=== PATIENT | male | born 1955 | race Caucasian/White ===

== ENCOUNTER → 2016-06-28 | Outpatient (CLI) | payer BC ==
[~2016-06-28] MED LIST: ALFU1TAB2 PO; CETI10TA84 PO; DOCU-94 PO; DVN160125 PO; FRRG27 PO; LANS30CA63 PO; METO100T14 PO; MULT-506 PO; RANI150T3 PO; VITAMIN D3 PO; WARF-237 PO; WARF7.5T PO
== END | disposition home or self-care (01) ==
LOC: C.PATHSPEC 13:22
PROVIDERS: ATTEND Dermatology
DX: L57.0 Actinic keratosis (principal)

== ENCOUNTER 2017-08-22 06:21 | Day surgery (SDC) | payer BC ==
[2017-08-05 14:00] VITALS: BMI 44.0
--- NOTE | 2017-08-05 14:31 | PAT Medication Instructions ---
Service Date Aug 05, 2017. Current Home Medication List Alfuzosin Hcl (Alfuzosin Hcl Er), 1 TAB PO QPM Cetirizine (Zyrtec), 10 MG PO QAM Docusate Sodium (Colace), 1 CAP PO BID Ferrous Sulfate (Iron), 1 TAB PO QPM Gabapentin (Neurontin), 300 MG PO UD PRN for PRN Lansoprazole (Prevacid), 30 MG PO QAM Meloxicam (Mobic), 7.5 MG PO QAM Metoprolol Tartrate (Lopressor) (Lopressor), 100 MG PO BID Multivitamin (Multivitamin), 1 TAB PO QAM Ranitidine Hcl (Zantac), 150 MG PO BID Valsartan/Hctz (Diovan Hct 160MG/12.5MG), 1 TAB PO QAM Warfarin Sod (Coumadin), 1 TAB PO TUESDAY Warfarin Sodium (Coumadin), 7.5 MG PO M,W,R,F,SA,SUN [Vitamin D3], 5,000 UNITS PO QAM Medication Instructions For Your Scheduled Surgery -Contact your surgeon for instructions for: Meloxicam (Mobic), 7.5 MG PO QAM -Contact your prescriber for instructions for: Warfarin Sod (Coumadin), 1 TAB PO ANU Warfarin Sodium (Coumadin), 7.5 MG PO M,W,R,F,SA,SUN - Hold the following medications the morning of surgery: Cetirizine (Zyrtec), 10 MG PO QAM Docusate Sodium (Colace), 1 CAP PO BID Multivitamin (Multivitamin), 1 TAB PO QAM Valsartan/Hctz (Diovan Hct 160MG/12.5MG), 1 TAB PO QAM [Vitamin D3], 5,000 UNITS PO QAM - Take the following medications the morning of surgery with a sip of water: Gabapentin (Neurontin), 300 MG PO UD PRN for PRN (if needed) Lansoprazole (Prevacid), 30 MG PO QAM Metoprolol Tartrate (Lopressor) (Lopressor), 100 MG PO BID Ranitidine Hcl (Zantac), 150 MG PO BID - Take the following medications as scheduled the night before surgery: Alfuzosin Hcl (Alfuzosin Hcl Er), 1 TAB PO QPM Docusate Sodium (Colace), 1 CAP PO BID Ferrous Sulfate (Iron), 1 TAB PO QPM Gabapentin (Neurontin), 300 MG PO UD PRN for PRN (if needed) Metoprolol Tartrate (Lopressor) (Lopressor), 100 MG PO BID Ranitidine Hcl (Zantac), 150 MG PO BID If you have any questions please call us at [phone] or [phone] or [phone]
--- NOTE | 2017-08-05 15:07 | DIAGNOSTIC IMAGING REPORT ---
CHEST 2 VIEWS ROUTINE CLINICAL HISTORY: PAT preoperative evaluation COMPARISON STUDY: 12/13/2014 FINDINGS: The bones soft tissues and hemidiaphragms are normal. The cardiomediastinal silhouette is normal. The lungs are clear. The pulmonary vasculature is normal. IMPRESSION: Negative chest. The above report was generated using voice recognition software. It may contain grammatical, syntax or spelling errors. Electronically signed by: Cameron Miranda M.D. 08/05/2017 3:05 PM Dictated Date/Time: 08/05/2017 3:05 PM
[2017-08-05 15:34] LABS: BASO % 0.4 %; BASO ABS # 0.04 K/uL (0-0.2); EOS % 6.5 %; EOS ABS # 0.59 K/uL (0-0.5); HEMATOCRIT 39.8 % (42-52); HEMOGLOBIN 13.5 g/dL (14.0-18.0); IG# 0.01 K/uL (0.00-0.02); LYMPH % 19.2 %; LYMPH ABS # 1.74 K/uL (1.2-3.4); MEAN CELL VOLUME 89.2 fL (80-100); MEAN CORPUSCULAR HEMOGLOBIN 30.3 pg (25-34); MEAN CORPUSCULAR HGB CONC 33.9 g/dl (32-36); MEAN PLATELET VOLUME 9.4 fL (7.4-10.4); MONO % 7.7 %; NEUT % 66.1 %; NEUT ABS # 5.97 K/uL (1.4-6.5); PLATELET COUNT 192 K/uL (130-400); RED CELL DISTRIBUTION WIDTH CV 14.1 % (11.5-14.5); RED CELL DISTRIBUTION WIDTH SD 45.7 fL (36.4-46.3); WHITE BLOOD COUNT 9.05 K/uL (4.8-10.8)
[2017-08-05 15:45] LABS: INR 2.2 (0.9-1.1); PTT PATIENT 42.2 SECONDS (21.0-31.0)
[2017-08-05 16:12] LABS: CALCIUM 9.2 mg/dl (8.5-10.1); CREATININE 1.11 mg/dl (0.60-1.40); POTASSIUM 4.7 mmol/L (3.5-5.1)
--- NOTE | 2017-08-21 21:53 | HISTORY & PHYSICAL EXAMINATION ---
DATE OF ADMISSION: 08/22/2017 CHIEF COMPLAINT: Right shoulder pain. HISTORY OF PRESENT ILLNESS: This is a 61-year-old male patient complaining of chronic right shoulder pain for approximately 6 months now. The patient has failed conservative treatment. An MRI confirmed impingement, AC arthritis and a rotator cuff tear. The patient wish to proceed with a right shoulder arthroscopic subacromial decompression, distal clavicle excision and rotator cuff repair. PAST MEDICAL HISTORY: Atrial fibrillation, sleep apnea with the use of CPAP, osteoarthritis, enlarged prostate. SOCIAL HISTORY: Nonsmoker, nondrinker. PAST SURGICAL HISTORY: Left shoulder, gastric lap band surgery, knee replacement, hip replacement. FAMILY HISTORY: Noncontributory. REVIEW OF SYSTEMS: Chronic right shoulder pain and weakness. Otherwise, denies any shortness of breath, chest pain, nausea, vomiting or any other joint complaints. MEDICATIONS: Include Coumadin as directed daily, multivitamin daily, Diovan daily, Mobic 7.5 mg daily, metoprolol 100 mg b.i.d., Alfuzosin 10 mg daily, Zyrtec 10 mg daily, Zantac 150 mg daily, Prevacid 30 mg daily, Vitamin D3 1000 units daily, iron 325 mg daily. ALLERGIES: No known drug allergies. PHYSICAL EXAMINATION: GENERAL: Well-developed, well-nourished 61-year-old male in no acute distress. He is alert and oriented x3 and pleasant. HEENT: Normocephalic, atraumatic. Extraocular motions are intact. Pupils equal and reactive to light. HEART: Regular rate and rhythm, no murmurs are appreciated. LUNGS: Clear. ABDOMEN: Soft and nontender. Bowel sounds present. EXTREMITIES: Right shoulder reveals full range of motion except for internal rotation. He has positive impingement maneuvering. He has AC joint tenderness, 5/5 strength globally. DIAGNOSES: Right shoulder impingement, acromioclavicular arthritis and rotator cuff tear, atrial fibrillation, sleep apnea with the use of CPAP, osteoarthritis, BPH. PLAN: The patient was advised of his diagnosis. Indications, risks, benefits, postop course have all been reviewed. The patient wishes to proceed with a right shoulder arthroscopic subacromial decompression, distal clavicle excision and rotator cuff repair. Necessary consent forms, preoperative testing and clearances will be obtained.
[~2017-08-22] VITALS: Ht 193 cm; Wt 166.5 kg
[~2017-08-22 06:21] MED LIST changes: +CEFAZOLIN 3000MG IV PUSH 22.5 ML IV SCH; -DVN160125 PO; +FERR1TAB23 PO; -FRRG27 PO; +GABA-113 PO; +LACTATED RINGER'S 1000ML 1,000 ML IV SCH; +MELO7.5T5 PO; +VALS160T58 PO
[2017-08-22] MEDS ORDERED: ROPIVACAINE 0.5% 5 MG/ML 30 ML VIAL ONE (06:24)
[2017-08-22 06:46] VITALS: BP 110/75; PULSE 83; TEMP 36.7; O2SAT 94; Ht 193 cm; Wt 166.5 kg
--- NOTE | 2017-08-22 07:01 | History & Physical Bridge Note ---
H&P Re-Evaluation Bridge Note: I have examined the patient, reviewed the History & Physical and in the interval since the performance of the History & Physical I have noted the following changes of clinical significance: No changes noted
[2017-08-22 07:24] LABS: PTT PATIENT 28.6 SECONDS (21.0-31.0)
[2017-08-22] MEDS ORDERED: ONDANSETRON INJ 2 MG/ML 2 ML VIAL ONE (07:32)
[2017-08-22] MEDS ORDERED: NEOSTIGMINE METHYLSULFATE 5 MG/5 ML SYR ONE (07:32)
[2017-08-22] MEDS ORDERED: MIDAZOLAM HCL 1 MG/ML 2ML VIAL ONE ×2 (07:32→07:39)
[2017-08-22] MEDS ORDERED: DEXAMETHASONE SOD INJ 4 MG/ML VIAL ONE (07:32)
[2017-08-22] MEDS ORDERED: FENTANYL CITRATE INJ 50 MCG/1 ML 2 ML VIAL ONE ×2 (07:32)
[2017-08-22] MEDS ORDERED: GLYCOPYRROLATE INJ 0.2 MG/ML VIAL ONE (07:32)
[2017-08-22] MEDS ORDERED: PROPOFOL IV EMULSION 10 MG/ML 20 ML VIAL IV ONE (07:32)
[2017-08-22] MEDS ORDERED: LIDOCAINE HCL 2% 2 ML VIAL (20MG/ML) ONE (07:32)
[2017-08-22] MEDS ORDERED: EpINEphrine HCL INJ 1 MG/ML 1ML SYRINGE ONE ×2 (07:50→09:58)
[2017-08-22] MEDS ORDERED: LABETALOL HCL IV 5 MG/ML 20ML IV PRN (08:45)
[2017-08-22] MEDS ORDERED: KETOROLAC TROMETHAMINE 30 MG/ML VIAL IV. PRN (08:45)
[2017-08-22] MEDS ORDERED: ONDANSETRON INJ 2 MG/ML 2 ML VIAL IV PRN ×2 (08:45→11:30)
[2017-08-22] MEDS ORDERED: FENTANYL CITRATE INJ 50 MCG/1 ML 2 ML VIAL IV PRN (08:45)
[2017-08-22] MEDS ORDERED: ATROPINE SULFATE 0.1 MG/ML 5ML SYR IV PRN (08:45)
[2017-08-22] MEDS ORDERED: PHENYLEPHRINE HCL INJ 10 MG/ML VIAL ONE (10:52)
--- NOTE | 2017-08-22 11:07 | [facility] Post Operative Brief Note ---
Immediate Operative Summary Operative Date Aug 22, 2017. Pre-Operative Diagnosis rotator cuff tear impingement acj arthritis right shoulder Post-Operative Diagnosis same biceps and rotator cuff tendinopathy glenoid labral tear synovitis subacromial bursitis Procedure(s) Performed right shoulder rotator cuff repair subacromial decompression and distal clavicle excision and extensive debridement and biceps tenotomy Surgeon Maliha Plate Shop Helper Surgeon(s) John Estimated Blood Loss 3cc Findings Consistent with Post-Op Diagnosis Specimens none Drains None Anesthesia Type General Regional Complication(s) none Disposition Disposition: Recovery Room / PACU
[2017-08-22] MEDS ORDERED: OXYC-57 PO (11:26)
[2017-08-22] MEDS ORDERED: KETOROLAC TROMETHAMINE 15 MG/ML VIAL IV. PRN (11:30)
[2017-08-22] MEDS ORDERED: MoRPHine SULFATE 2 MG/ML CARP IV PRN (11:30)
--- NOTE | 2017-08-22 11:32 | Discharge Instructions ---
Discharge Instructions Date of Service Aug 22, 2017. Visit Reason for Visit: Right Shoulder Impingement, Ac Joint Arthritis, Rt Discharge Discharge Diagnosis / Problem: Right Shoulder RTC Tear; Impingement syndrome Discharge Goals Goal(s): Decrease discomfort, Improve function, Increase independence Activity Recommendations Activity Limitations: per Instructions/Follow-up section Anesthesia . Post Anesthesia Instructions: If you have had General Anesthesia or IV Sedation: * Do not drive today. * Resume driving when surgeon permits. * Do not make important decisions or sign legal documents today. * Call surgeon for: 1. Temperature elevations greater than 101 degrees F. 2. Uncontrollable pain. 3. Excessive bleeding. 4. Persistent nausea and vomiting. 5. Medication intolerance (nausea, vomiting or rash). * For nausea and vomiting use only clear liquids such as: tea, soda, bouillon until nausea subsides, then gradually increase diet as tolerated. * If you have any concerns or questions, call your surgeon's office. If physician is unavailable and it is an emergency, call 911 or go to the nearest emergency room. . Instructions / Follow-Up Instructions / Follow-Up U DISCHARGE INSTRUCTIONS: ROTATOR CUFF REPAIR SELF CARE INSTRUCTIONS A. You are permitted to loosen your sling/immobilizer to move your elbow, wrist , and hand to prevent stiffness. You should use your well arm (good arm) to assist the operated extremity when trying to raise the arm away from the body, hygiene purposes. Do NOT actively try to use/engage your shoulder muscles in operative arm at this time. You should NOT do overhead activity, lifting, or attempt to reach behind your back. B. You ARE NOT to start Physical Therapy upon discharge. Dr Jett will let you know when this will begin Please do the exercises noted on the discharge instructions. You will be provided a prescription for therapy with specific restrictions, if needed, at time of discharge. C. At 48 hours post-operatively, you may change your dressing. (Leave white steri-strips intact if present). Use band-aids and change daily. You are allowed to shower at this time and get the incision area wet, but DO NOT soak or submerge incision area in water. (No baths, swimming pools, hot tubs) D. Do NOT apply soap or any ointment/lotions directly over incision. E. You may use ice as needed to operative shoulder SPECIAL CARE INSTRUCTIONS: VERY IMPORTANT TO READ AND REVIEW A. There are a few signs you need to watch for after you are home. Call [facility] at [phone] if you experience any of the following: a. Increased severe shoulder pain. Some pain is expected especially when you exercise b. Increased swelling in your shoulder or arm; pain or swelling in either upper extremity. (Note: swelling and stiffness is normal and expected for several weeks post op, depending on type of shoulder surgery you had). c. Any fluid or drainage from the incision; redness of the incision. d. Shortness of breath or chest pain. B. Please call [facility] at [phone] if you have any questions or concerns about your operation or recovery. C. Call your physician if: a. Temperature is greater than 101 degrees (F). b. Pain is not relieved by prescribed pain medications. c. Increase drainage or redness from incision. d. Unanswered questions or concerns. D. Pain Medication: a. You will be prescribed pain medication upon discharge that should last till your first post-operative appointment. b. If you experience nausea and/or skin rash, discontinue this medication and contact our office for an alternative medication. c. Caution- narcotic pain medication can cause constipation. FOLLOW UP VISIT: Please call [facility] at [phone] to schedule a follow up appointment 10-14 days from your surgery date. Diet Recommendations Recommended Home Diet: resume previous diet Procedures Procedures Performed: right shoulder rotator cuff repair subacromial decompression and distal clavicle excision and extensive debridement and biceps tenotomy Pending Studies Studies pending at discharge: no Medical Emergencies . Who to Call and When: Medical Emergencies: If at any time you feel your situation is an emergency, please call 911 immediately. . Non-Emergent Contact Non-Emergency issues call your: Surgeon Call Non-Emergent contact if: temperature is above 101.5, your pain is not controlled, your pain is worsening, wound has increased drainage, wound has increased redness . . "Provider Documentation" section prepared by Cayetano Lopez. . [place] Drug Monitoring Program Search Results: patient reviewed within database, no issues identified
[2017-08-22 12:20] VITALS: BP 146/83; PULSE 72; TEMP 36.2; O2SAT 94
[2017-08-22 12:50] VITALS: BP 135/82; PULSE 76; O2SAT 93
[2017-08-22 13:25] VITALS: BP 112/67; PULSE 78; TEMP 36.1; O2SAT 94
[2017-08-22 13:47] VITALS: BP 123/67; PULSE 71; TEMP 36.8; O2SAT 93
--- NOTE | 2017-08-22 14:03 | Anesthesiology Progress Note ---
Anesthesia Post Op Note Date & Time Aug 22, 2017 at 14:03 Vital Signs Pain Intensity: 0 Vital Signs Past 12 Hours Date Time Temp Pulse Resp B/P (MAP) Pulse Ox O2 Delivery O2 Flow Rate FiO2 08/22/17 13:25 36.1 78 18 112/67 94 Room Air 08/22/17 12:50 76 18 135/82 93 Room Air 08/22/17 12:20 36.2 72 18 146/83 94 Room Air 08/22/17 12:10 36.2 60 18 137/91 95 Nasal Cannula 2 08/22/17 12:00 36.2 62 18 125/87 94 Nasal Cannula 2 08/22/17 11:50 65 18 125/87 93 Nasal Cannula 2 08/22/17 11:40 74 16 138/94 98 Oxymask 10 08/22/17 11:30 65 16 140/85 97 Oxymask 10 08/22/17 11:20 36.3 61 20 138/83 95 Oxymask 10 08/22/17 06:46 36.7 83 20 110/75 (87) 94 Room Air Notes Mental Status: alert / awake / arousable, participated in evaluation Pt Amnestic to Procedure: Yes Nausea / Vomiting: adequately controlled Pain: adequately controlled Airway Patency, RR, SpO2: stable & adequate BP & HR: stable & adequate Hydration State: stable & adequate Anesthetic Complications: no major complications apparent
--- NOTE | 2017-08-22 19:20 | OPERATIVE REPORT ---
DATE OF OPERATION: 08/22/2017 INDICATION FOR PROCEDURE: The patient is a 61-year-old male who presents with right shoulder pain, impingement syndrome and rotator cuff tear. He has had good successful rotator cuff surgery in his opposite shoulder. On this shoulder, he has significant hypertrophic AC joint arthritis, type 3 acromion and subacromial impingement. He also has full-thickness rotator cuff tear anteriorly and rotator cuff tendinopathy. I could not assess the biceps but he may have biceps tendinopathy. The patient also has obesity, BMI 44.7. PREOPERATIVE DIAGNOSES: Right shoulder rotator cuff tear, subacromial impingement, hypertrophic acromioclavicular joint arthritis and morbid obesity, body mass index 44.7. POSTOPERATIVE DIAGNOSES: Same including biceps tendinopathy, rotator cuff tendinopathy, glenohumeral synovitis, glenohumeral osteoarthritis and degenerative glenoid labral tear. PROCEDURES PERFORMED: Arthroscopy of the right shoulder with arthroscopic rotator cuff repair, subacromial decompression, distal clavicle excision, extensive debridement including biceps tenotomy and increased difficulty due to morbid obesity, BMI 44.7. SURGEON: Dr. Jett. LOCATOR SPECIALIST: ANNY Houston. ANESTHESIA: Regional block and general. OPERATIVE PROCEDURE: The patient was taken to the operating room and anesthetized under regional block and general anesthetic. He was positioned on [facility] shoulder table in about 70-degree beachchair position. His right shoulder exam demonstrated good range of motion. He has a very obese large arm. He is a very obese individual, so it took a little bit more time and difficulty to get in position due to his obesity. After shoulder was sterilely prepped and draped with ChloraPrep, arthroscopy was started with a posterior arthroscopy portal in the soft spot. Anterior portal rotator interval, lateral portal in the subacromial space and superior lateral portal for suture anchor placement. Intraarticular findings demonstrated he had significant degeneration of the entire labrum, more of a degenerative SLAP tear type 1, extending from anterior to posterior up into the biceps tendon with marked biceps tendinopathy, extending deep into the bicipital groove. He had sort of a band-like thinning of biceps tendon. Subscapularis tendon was intact and looked normal. Supraspinatus had tendinopathy fraying in the undersurface and a full-thickness cuff tear. This extended back toward the anterior edge of the infraspinatus. The inferior labrum also was frayed anterior inferiorly to posterior inferiorly and the glenoid articular surface had grade 3 degenerative changes. The humeral head good articular surface. In the subacromial space, the tear was noted to be an L-shaped tear. Supraspinatus completely torn off the greater tuberosity with split extending between the infraspinatus and supraspinatus and marked tendinopathy of the superior edge of supraspinatus and infraspinatus bursal surface. There was marked impingement with type 3 acromion process, fraying CA ligament, prominent inferior AC joint spurs causing impingement and grade 4 DJD AC joint. There was chronic subacromial bursitis. Starting at the glenohumeral joint, did a thorough debridement of the labrum circumferentially, debrided the undersurface of the biceps tendon, debrided the undersurface of the rotator cuff, did some partial synovectomy, coagulated the bleeders as necessary and released the biceps tendon, performing a tenotomy using a radiofrequency ablator. We did debride the articular surface of the glenoid along with the labrum circumferentially. The subacromial space debridement performed using a 4.5 resector blade and a radiofrequency ablator to ablate the bursa. The bursal surface of the cuff was debrided between the infraspinatus and the supraspinatus in the split area on the bursal surface where it was frayed. Footprint of the supraspinatus was debrided from the articular margin out to the lateral greater tuberosity. The footprint was debrided down to bone for reattachment. The subacromial bursa was resected from anterior to posterior, fully visualizing the whole cuff tear pattern, removing all pathological bursa. The radiofrequency ablator was used to ablate the bursa on the undersurface of the acromion, released the CA ligament off the anterior acromial spur, released the inferior AC joint capsule, exposed 1 cm distal clavicle and all the inferior spurs. A 5.5 bur was used to plane down the acromion to a type 1 flat shape and initially the undersurface of distal clavicle was resected, 1 cm was resected up to the level of the acromioplasty with the bur through the lateral portal. Then, the rotator cuff was repaired using a [employer] suture anchor 5.5 mm in the lateral footprint of the supraspinatus. We had satisfactory fixation with the anchor. Then placed 2 [id number] sutures using #2 Ultrabraid into the supraspinatus anteriorly and infraspinatus posteriorly. These were left untied and the sutures from the triple loaded anchor were passed underneath the sutures acting as a rip-stop technique and into the supraspinatus. Then, the sutures to the anchor were repaired with an arthroscopic Mills sliding locking knot 3 reverse half hitches alternating posts. Then, [id number] sutures were closed with similar knots. Repair was secured with the arm at the side, and with rotation, there was no impingement. Then, a 70-degree scope was placed in the lateral portal and the anterior portal a 5.5 bur was placed and then we removed the remainder of the distal clavicle up to the superior capsule, and superior and posterior capsule was preserved for stability. The port sites were closed with nylon sutures, sterile dressing was applied and a pillow sling immobilizer. ANNY Houston, was my machinist first class and he functioned as machinist first class for the entire procedure. He assisted in patient positioning, prepping and draping, arm positioning, instrument management, suture management during the procedure, and he performed the closure, dressings, sling application, and will participate in some of the postoperative care of the patient. I attest to the content of the Intraoperative Record and any orders documented therein. Any exception s are noted below.
== END 2017-08-22 14:20 | disposition home or self-care (01) ==
LOC: C.ACU 06:21
PROVIDERS: ATTEND Orthopaedic Surgery Sports Medicine
DX: M75.101 Unspecified rotator cuff tear or rupture of right shoulder, not specified as traumatic (principal); M75.41 Impingement syndrome of right shoulder; M75.21 Bicipital tendinitis, right shoulder; M19.011 Primary osteoarthritis, right shoulder; M65.811 Other synovitis and tenosynovitis, right shoulder; M24.111 Other articular cartilage disorders, right shoulder; I48.91 Unspecified atrial fibrillation; G47.30 Sleep apnea, unspecified; Z98.84 Bariatric surgery status; Z96.659 Presence of unspecified artificial knee joint; Z96.649 Presence of unspecified artificial hip joint; Z79.01 Long term (current) use of anticoagulants; Z79.899 Other long term (current) drug therapy; E66.01 Morbid (severe) obesity due to excess calories; Z68.41 Body mass index [BMI] 40.0-44.9, adult

== ENCOUNTER 2019-04-23 08:01 | Inpatient (IN) ==
--- NOTE | 2019-03-22 16:39 | PAT Medication Instructions ---
Medication Instructions Date of Service March 22, 2019 Home Medications Medication Instructions Recorded albuterol sulfate HFA 90 2 puffs INHALATION Q4H PRN #18 gm 01/17/19 mcg/actuation aerosol inhaler gabapentin 300 mg capsule 300 mg PO QPM #90 cap 01/17/19 magnesium oxide 400 mg (241.3 mg 400 mg PO BID #180 tab 01/17/19 magnesium) tablet meclizine 25 mg tablet 25 mg PO TID PRN #60 tab 01/17/19 metoprolol tartrate 100 mg tablet 100 mg PO BID #180 tab 01/17/19 tadalafil 10 mg tablet 18.5 mg PO DAILY PRN #90 tab 01/17/19 albuterol sulfate HFA 90 mcg/actuation aerosol inhaler 2 puffs INHALATION Q4H PRN gabapentin 300 mg capsule 300 mg PO QPM magnesium oxide 400 mg (241.3 mg magnesium) tablet 400 mg PO BID meclizine 25 mg tablet 25 mg PO TID PRN metoprolol tartrate 100 mg tablet 100 mg PO BID tadalafil 10 mg tablet 18.5 mg PO DAILY PRN alfuzosin 10 mg PO HS cetirizine 10 mg PO QAM cholecalciferol (vitamin D3) 1,000 units PO QAM lansoprazole 30 mg PO QAM meloxicam 7.5 mg PO QAM multivitamin [Multiple Vitamins] 1 tab PO QAM valsartan-hydrochlorothiazide 1 tab PO QAM warfarin 7.5 mg PO .SUN,M.W,TH,SAT warfarin 10 mg PO .TUE, FRI ASK your surgeon for instructions meloxicam 7.5 mg PO QAM ASK your prescriber and surgeon warfarin 7.5 mg PO .SUN,M.W,TH,SAT warfarin 10 mg PO .TUE, FRI DO NOT take the morning of surgery magnesium oxide 400 mg (241.3 mg magnesium) tablet 400 mg PO BID tadalafil 10 mg tablet 18.5 mg PO DAILY PRN cetirizine 10 mg PO QAM cholecalciferol (vitamin D3) 1,000 units PO QAM multivitamin [Multiple Vitamins] 1 tab PO QAM valsartan-hydrochlorothiazide 1 tab PO QAM Take morning of surgery With a small sip of water, OTHERWISE NOTHING TO EAT OR DRINK AFTER MIDNIGHT: albuterol sulfate HFA 90 mcg/actuation aerosol inhaler 2 puffs INHALATION Q4H PRN (if needed) meclizine 25 mg tablet 25 mg PO TID PRN (if needed) metoprolol tartrate 100 mg tablet 100 mg PO BID lansoprazole 30 mg PO QAM Take evening before surgery albuterol sulfate HFA 90 mcg/actuation aerosol inhaler 2 puffs INHALATION Q4H PRN (if needed) gabapentin 300 mg capsule 300 mg PO QPM magnesium oxide 400 mg (241.3 mg magnesium) tablet 400 mg PO BID meclizine 25 mg tablet 25 mg PO TID PRN (if needed) metoprolol tartrate 100 mg tablet 100 mg PO BID tadalafil 10 mg tablet 18.5 mg PO DAILY PRN (if needed) alfuzosin 10 mg PO HS Other Notes If you have any questions please call us at [phone] or [phone] or [phone] or [phone]
--- NOTE | 2019-03-23 12:08 | Anesthesiology Consultation ---
Date of Service March 23, 2019 Assessment & Plan (1) Encounter for pre-operative examination: - Awaiting review preop testing (labs, EKG, CXR). - Awaiting cardiology preop evaluation scheduled 03/26 ([facility]). - Check coags AM DOS (warfarin instructions per surgeon/prescriber). Chart Review Chart Review: Patient seen in Pre Admission Testing Teaching & Discussion Pre-Anesthesia Teaching/Discussion Notes: Instructed NPO after midnight before surgery,except medications with 15 cc of water. Medication instructions provided according to the PAT guidelines. History Surgery Operation Date: 04/23/19 11:25 Proposed Procedures p Left Total Knee Arthroplasty - Paco Jett MD Height/Weight Height: 6 ft 3 in Weight: 156.8 kg Allergies Allergy/AdvReac Type Severity Reaction Status Date / Time hydrochlorothiazide Allergy Mild Hypotension Verified 03/20/19 12:22 [From Aldoril D30] methyldopa [From Aldoril D30] Allergy Mild Hypotension Verified 03/20/19 12:22 Medications Home Medications Medication Instructions Recorded Confirmed Last Taken albuterol sulfate HFA 90 2 puffs INHALATION Q4H PRN #18 gm 01/17/19 03/20/19 Unknown mcg/actuation aerosol inhaler gabapentin 300 mg capsule 300 mg PO QPM #90 cap 01/17/19 03/20/19 Unknown magnesium oxide 400 mg (241.3 mg 400 mg PO BID #180 tab 01/17/19 03/20/19 Unknown magnesium) tablet meclizine 25 mg tablet 25 mg PO TID PRN #60 tab 01/17/19 03/20/19 Unknown metoprolol tartrate 100 mg tablet 100 mg PO BID #180 tab 01/17/19 03/20/19 Unknown tadalafil 10 mg tablet 18.5 mg PO DAILY PRN #90 tab 01/17/19 03/20/19 Unknown alfuzosin 10 mg PO HS 03/20/19 03/20/19 Unknown cetirizine 10 mg PO QAM 03/20/19 03/20/19 Unknown cholecalciferol (vitamin D3) 1,000 units PO QAM 03/20/19 03/20/19 Unknown lansoprazole 30 mg PO QAM 03/20/19 03/20/19 Unknown meloxicam 7.5 mg PO QAM 03/20/19 03/20/19 Unknown multivitamin [Multiple Vitamins] 1 tab PO QAM 03/20/19 03/20/19 Unknown valsartan-hydrochlorothiazide 1 tab PO QAM 03/20/19 03/20/19 Unknown warfarin 7.5 mg PO .Marcie CHAVEZ,TH,SAT 03/20/19 03/20/19 Unknown warfarin 10 mg PO .TUE, FRI 03/20/19 03/20/19 Unknown Past Medical History Medical History Polyneuropathy Osteoarthritis CIRA on CPAP Hypertension Esophageal reflux controlled Dyslipidemia Woodard's esophagus Atrial fibrillation, permanent BPH (benign prostatic hyperplasia) Morbid obesity Exercise / Class Metabolic Activity III < 4 Walking/Shop/Light housework Past Family History Family History Unknown Patient's father is Diabetes Uterine cancer Father Heart disease Lung disease Mother Hypertension Past Surgical History Surgical History S/P rotator cuff repair RIGHT/LEFT; Right shoudler arthroscopy with RCR: 08/22/17: Grade view 1, MAC #4, ETT 8.0 + PNB at [facility] S/P knee replacement RIGHT S/P colonoscopy History of esophagogastroduodenoscopy (EGD) History of left hip replacement Hx of laparoscopic gastric banding Past Anesthesia History No Family Hx of Anesthesia Complications and Other *Awareness with right TKA* History of PONV No Hx of PONV and No Hx of Motion Sickness Social History Smoking Status: Never smoker Do You Dip or Chew Tobacco: No Hx Alcohol Use: No Hx Substance Use: No substance use type: does not use Review of Systems Patient denies chest pain, shortness of breath, cough, wheezing, palpitations. Physical Exam Vital Signs VITALS BP 108/76 P 71 TEMP 98.4 SP02 93%RA RESP 16 PHYSICAL Full neck and c-spine range of motion. Full TMJ range of motion. TMD 3 finger breaths Mallampati Score 2 Dentition: partial on upper, plan for tooth extraction prior to surgery (surgeon aware)-- will then have no teeth on lower Lungs: clear throughout to auscultation Cardiac: regular rate, irregular rhythm, no murmurs noted Spine: normal Carotid arteries: negative bruit Extremities: no edema Trimmed steen Testing Echocardiogram Date: 03/23/18 "Severely dilated left ventricle (7.7 cm) with normal systolic function and wall motion technically difficult study. EF 55-60%. Severely dilated left atrium. Dilated right sided chambers as well. No significant valvular abnormalities reported" per 02/12/19 cardiology office visit (unable to obtain official report*)
--- NOTE | 2019-03-23 12:56 | XRay Report ---
XR chest Pre-admission PA/Lat CLINICAL HISTORY: Preoperative evaluation. COMPARISON STUDY: Chest radiograph August 05, 2017. FINDINGS: Lung volumes are normal. There is no pneumothorax or pleural effusion. There is mild to mod erate cardiomegaly. No evidence for pulmonary edema. There is a probable gastric lap band. IMPRESSION: 1. No acute cardiopulmonary findings. 2. Mild to moderate cardiomegaly. Electronically signed by: Patel Alvarado M.D. 03/23/2019 12:55 PM
[2019-03-23 13:45] LABS: Basophils # (auto) 0.02 K/uL (0-0.2); Basophils % (auto) 0.2 %; Eosinophils % (auto) 4.7 %; Hematocrit (blood only) 39.5 % (42-52); Hemoglobin 12.9 g/dL (14.0-18.0); Immature Granulocytes # (auto) 0.02 K/uL (0.00-0.02); Immature Granulocytes % (auto) 0.2 %; Lymphocytes # (auto) 1.23 K/uL (1.2-3.4); Lymphocytes % (auto) 14.4 %; Mean Corpuscular Hemoglobin 30.1 pg (25-34); Mean Corpuscular Hgb Conc 32.7 g/dL (32-36); Mean Corpuscular Volume 92.1 fL (80-100); Monocytes % (auto) 8.2 %; Neutrophils % (auto) 72.3 %; Platelet Count 188 K/uL (130-400); RDW Standard Deviation 47.2 fL (36.4-46.3); Red Blood Count 4.29 M/uL (4.7-6.1); White Blood Count 8.57 K/uL (4.8-10.8)
[2019-03-23 14:00] LABS: INR 2.1 (0.9-1.1); Partial Thromboplastin Ratio 1.3; Partial Thromboplastin Time 34.7 Seconds (21.0-31.0); Prothrombin Time 20.4 Seconds (9.0-12.0)
[2019-03-23 14:23] LABS: Albumin Level 3.8 gm/dl (3.4-5.0); BUN Creatinine Ratio 21.9 (10-20); Calcium 9.2 mg/dl (8.5-10.1); Est GFR (African American) 78.3; Est GFR (Non-African American) 67.6; Estimated Average Glucose 120 mg/dl; Hemoglobin A1C 5.8 % (4.5-5.6); Potassium 4.5 mmol/L (3.5-5.1)
[2019-03-23 14:38] LABS: Appearance Urine Clear (Clear); Bilirubin Urine Negative (Negative); Blood Urine Negative (Negative); Color Urine Yellow; Glucose Urine UA Negative (Negative); Ketones Urine Negative (Negative); Leukocyte Esterase Urine Negative (Negative); Nitrite Urine Negative (Negative); Protein Urine Negative (Negative); Urobilinogen Urine Negative (Negative)
--- NOTE | 2019-04-22 21:41 | History and Physical Report ---
DATE OF ADMISSION: 04/23/2019 CHIEF COMPLAINT: Left knee pain. HISTORY OF PRESENT ILLNESS: This is a 63-year-old male patient of Dr. Díaz complaining of chronic left knee pain and instability, longstanding, now progressively getting worse. The patient has failed conservative treatment including narcotic medications, home exercise program and the use of a brace. The patient has been diagnosed with end-stage osteoarthritis per clinical and radiographic exams. The patient has increased pain with weightbearing activities and his pain does interfere with his activities of daily living. The patient wished to proceed with a left total knee arthroplasty. PAST MEDICAL HISTORY: Hypertension, atrial fibrillation, sleep apnea with the use of CPAP, osteoarthritis, obesity. SOCIAL HISTORY: Nonsmoker, nondrinker. PAST SURGICAL HISTORY: Right shoulder, left shoulder, right knee, left hip and a lap band abdominal surgery. FAMILY HISTORY: Noncontributory. REVIEW OF SYSTEMS: Chronic left knee pain and instability. Otherwise, denies any shortness of breath, chest pain, nausea, vomiting or any other joint complaints. MEDICATIONS: Coumadin daily, multivitamin daily, Diovan daily, Mobic 7.5 mg daily, metoprolol 100 mg twice daily, alfuzosin 10 mg daily, Zyrtec 10 mg daily, Zantac 150 mg daily, Prevacid 30 mg daily, Vitamin D3 1000 units daily, iron 325 mg daily. ALLERGIES: No known drug allergies. PHYSICAL EXAMINATION: GENERAL: Well-developed, well-nourished 63-year-old male in no acute distress. He is alert and oriented x3 and pleasant. HEENT: Normocephalic, atraumatic. Extraocular motions are intact. Pupils are equal and reactive to light. HEART: Regular rate and rhythm and stable. LUNGS: Clear. ABDOMEN: Soft, nontender, bowel sounds present. EXTREMITIES: Left knee limited range of motion of 0-115 with a valgus deformity. The patient has lateral joint line tenderness with crepitation. He has 5/5 strength with pain. NEUROLOGIC: Neurovascularly, he is intact in his left lower extremity. DIAGNOSES: Left knee end-stage osteoarthritis, atrial fibrillation, sleep apnea with the use of CPAP, osteoarthritis and obesity. PLAN: The patient was advised of his diagnosis. Indications, risks, benefits, postop course have all been reviewed. The patient wishes to proceed with a left total knee arthroplasty. Necessary consent forms, preoperative testing and clearances will be obtained.
[~2019-04-23 08:01] MED LIST changes: +ACETAMINOPHEN 500 MG TAB PO SCH; -ALFU1TAB2 PO; +BUPIVACAINE 0.5 % 5 MG/1 ML PF 10ML VIAL ONE; +CEFAZOLIN 3000MG 72.5 ML IV SCH; -CEFAZOLIN 3000MG IV PUSH 22.5 ML IV SCH; -CETI10TA84 PO; +CeleBREX 200 MG CAP PO SCH; -DOCU-94 PO; +FAMOTIDINE 20 MG TAB PO SCH; -FERR1TAB23 PO; -GABA-113 PO; +GABAPENTIN 600 MG DOSE PO SCH; -LACTATED RINGER'S 1000ML 1,000 ML IV SCH; -LANS30CA63 PO; +LR 500ML BOLUS IV SCH; +LR 500ML BOLUS, THEN 15ML/HR IV SCH; -MELO7.5T5 PO; -METO100T14 PO; +METOCLOPRAMIDE HCL 10 MG TABLET PO SCH; -MULT-506 PO; -RANI150T3 PO; +ROPIVACAINE 0.5% HCL/PF 150 MG, BUPIVACAINE 0.5% MPF 30 ML, EPINEPHrine 30MG/30ML (OR U... INFIL SCH; -VALS160T58 PO; -VITAMIN D3 PO; -WARF-237 PO; -WARF7.5T PO; +dexAMETHasone 4 MG TAB PO SCH
[2019-04-23] MEDS ORDERED: MIDAZOLAM HCL 1 MG/ML 2ML VIAL ONE (08:25)
[2019-04-23] MEDS ORDERED: fentaNYL citrate 100 MCG/2 ML VIAL ONE (08:25)
[2019-04-23 08:43] LABS: INR 1.1 (0.9-1.1); Partial Thromboplastin Time 27.2 Seconds (21.0-31.0); Prothrombin Time 11.1 Seconds (9.0-12.0)
--- NOTE | 2019-04-23 08:51 | History & Physical Bridge Note ---
Date of Service April 23, 2019 History & Physical Bridge Note I have examined the patient, reviewed the History & Physical and in the interval since the performance of the History & Physical I have noted the following changes of clinical significance: no changes noted
[2019-04-23] MEDS ORDERED: ORTHO JOINT ANESTHETIC ONE (09:25)
[2019-04-23] MEDS ORDERED: BACITRACIN INJ 50,000 UNIT VIAL ONE (09:25)
[2019-04-23] MEDS ORDERED: ePHEDrine sulfate 50 MG/ML AMP IV PRN (09:44)
[2019-04-23] MEDS ORDERED: ONDANSETRON INJ 2 MG/ML 2 ML VIAL IV PRN ×2 (09:44→13:54)
[2019-04-23] MEDS ORDERED: ATROPINE SULFATE 0.1 MG/ML 10ML SYR IV PRN (09:44)
[2019-04-23] MEDS ORDERED: fentaNYL citrate 100 MCG/2 ML VIAL IV PRN (09:44)
[2019-04-23] MEDS ORDERED: PHENYLEPHRINE 100MCG/ML 5ML SYR ONE (10:47)
[2019-04-23] MEDS ORDERED: LIDOCAINE HCL 2% 2 ML VIAL/AMP(20MG/ML) INFIL ONE (10:47)
[2019-04-23] MEDS ORDERED: PROPOFOL IV EMULSION 10 MG/ML 20 ML VIAL IV ONE ×3 (10:47→12:21)
[2019-04-23] MEDS ORDERED: ONDANSETRON INJ 2 MG/ML 2 ML VIAL ONE (10:47)
[2019-04-23] MEDS ORDERED: KETAMINE HCL INJ 50 MG/ML 10 ML VIAL ONE (10:53)
--- NOTE | 2019-04-23 12:21 | Post Operative Brief Note ---
Immediate Post Op Note v1 Date of Surgery April 23, 2019 Pre & Post Diagnosis Operation Date: 04/23/19 10:40 Pre-Op Diagnosis: LEFT KNEE OSTEOARTHRITIS, obesity BMI 43 Post-Op Diagnosis: LEFT KNEE OSTEOARTHRITIS, obesity BMI 43 I identified the patient and participated in the time-out.: Yes Procedure Operation Date: 04/23/19 10:40 Actual Procedures p Left Total Knee Arthroplasty(Left) increased difficulty obesity BMI 43- Paco Jett MD Surgeon Paco Jett MD Inspector Bicycle Cameron MCCORMICK Estimated Blood Loss 5 Findings Consistent with Post-Op Diagnosis Specimens Bone cuts Drains Hemovac Drain (10 FR DUAL TROCAR) Anesthesia Type MAC Spinal Regional Complications none Disposition Accompanied Patient To Recovery: No Disposition: Recovery Room Overlapping Procedure I was present for: the critical portions of procedure.
--- NOTE | 2019-04-23 13:38 | Anesthesiology Progress Note ---
Date of Service April 23, 2019 Anesthesia Post Procedure Vital Signs Vital Signs: Temp Pulse Pulse Resp BP Pulse Ox 04/23/19 13:25 98.2 F 59 L 14 107/78 97 04/23/19 13:15 70 14 110/68 94 04/23/19 13:05 59 L 14 102/75 99 04/23/19 12:58 97.2 F L 73 14 96/65 L 98 04/23/19 08:41 97.5 F L 79 20 118/84 96 Pain Intensity Left Knee: Pain Intensity: 6 Transfer of Care Handoff Completed per policy Notes Mental Status: alert / awake / arousable and participated in evaluation Patient Amnestic to Procedure: Yes Nausea / Vomiting: adequately controlled Pain: adequately controlled Airway Patency, RR, SpO2: stable & adequate BP & HR: stable & adequate Hydration State: stable & adequate Neuraxial Anesthesia: was administered and sensory block is resolving Anesthetic Complications: no major complications apparent and Pt Satisfied with anesthetic care
--- NOTE | 2019-04-23 13:38 | XRay Report ---
LEFT KNEE 2 VIEWS History: Left total knee arthroplasty. Degenerative arthritis. Postop. FINDINGS: The patient is status post a left total knee arthroplasty. The hardware is intact. No fract ure or dislocation. Skin tiffany and surgical drains are in place. IMPRESSION: Left total knee arthroplasty. No evidence for hardware complication. Electronically signed by: Les Renteria M.D. 04/23/2019 1:37 PM
[2019-04-23] MEDS ORDERED: HYDROmorphone INJ 0.5 MG/0.5 ML SYR IV PRN (13:54)
[2019-04-23] MEDS ORDERED: MAGNESIUM HYDROXIDE SUSP 30 ML UDC PO PRN (13:54)
[2019-04-23] MEDS ORDERED: BISACODYL 10 MG SUPP PR PRN (13:54)
[2019-04-23] MEDS ORDERED: NALOXONE HCL 0.4 MG/1 ML VIAL/CARP IV PRN (13:54)
--- NOTE | 2019-04-23 14:01 | Operative Report ---
Post Operative Report Pre & Post Diagnosis Operation Date: 04/23/19 10:40 Pre-Op Diagnosis: LEFT KNEE OSTEOARTHRITIS obesity BMI 43 Post-Op Diagnosis: LEFT KNEE OSTEOARTHRITIS obesity BMI 43 I identified the patient and participated in the time-out.: Yes Procedure Operation Date: 04/23/19 10:40 Actual Procedures p Left Total Knee Arthroplasty(Left), increased difficulty obesity BMI 43- Paco Jett MD Surgeon Paco Jett MD Bull Wheel Worker Cameron MCCORMICK Estimated Blood Loss 5 Findings Consistent with Post-Op Diagnosis Specimens Bone cuts Drains 2 Hemovac Anesthesia Type MAC Spinal Regional Complications none Disposition Accompanied Patient To Recovery: No Disposition: Recovery Room Indications 63-year-old male history of obesity chronic progressive osteoarthritis in his left knee with a valgus knee about 15 to 18 degrees of valgus some MCL laxity [id number] lateral compartment. History of ipsilateral hip replacement on left side and contralateral knee replacement. Description of Procedure Patient taken to the operating room the size under spinal MAC regional anesthesia. Patient was placed supine on the operating table. A pneumatic tourniquet was placed about the obese left upper thigh. The left lower extremity was prepped and draped in sterile fashion. Knee exam demonstrated tight lateral compartment valgus knee 15 to 18 degrees flexion contracture 10 degrees good flexion to 130 degrees. The leg was elevated exsanguinated with an Esmarch bandage and pneumatic tourniquet was raised to 350 millimeters of mercury. Skin incised sharply in longitudinal fashion. Subcutaneous flaps elevated. Incision was made through the medial retinaculum extending up in the mid third of the quadriceps tendon and down to the medial tibial tubercle. Intra-articular findings demonstrated grade 4 patellofemoral trochlear OA with grade 4 lateral compartment [id number] chronic degenerative ACL tear chronic lateral meniscus tear with subluxation. Some tricompartmental DJD. The Viamedia triathlon total knee arthroplasty system was used. To expose the knee the infrapatellar fat pad was resected. The meniscal remnants and posterior cruciate ligament and remnants of anterior cruciate ligament were resected. The anterior fat pad over the femur in the area of the anterior flange of the femoral component was resected. Lateral synovial bands release. The femur was exposed. An intramedullary drill hole was made into the canal. A guide elma was placed. Distal femoral cutting guide was adjusted to resect a 6 degree valgus cut with 10 millimeters distal femur resected. The knee was extended and a subperiosteal peel lateral release was performed around the patella. Patella width was measured and width was reproduced using a freehand cut technique and a 39 x 11 symmetrical patella component. The 3 drill holes were made and the excess lateral facet was beveled off to prevent any impingement. Attention was taken back to the femur which was exposed with retractors and the femoral sizing guide was pinned in position. The drill holes were placed in 3 of external rotation to match epicondylar axis. Femur sized for a 8 component. I had to use the +1.5 guide to adjust anterior resection so we would not notch the femur. The 4-in-1 cutting block was placed and then the anterior posterior and chamfer cuts are made. The tibia was then subluxed. The external tibial cutting guide was just to make a perpendicular cut to the long axis of the tibia below the most deficient bone loss side. A lamina electric trucker was used and the flexion extension gaps were balanced. This required IT band release off tibia lateral capsular and posterior lateral capsule release popliteus tendon release and lateral recession of the lateral collateral ligament. All posterior osteophytes removed. All meniscal remnants were resected. The tibia exposed and the trial tibial component size 8 was externally rotated in line with the tibial tubercle and pinned in position. The punch for stem was used. The notch cutting device was centered appropriately and the femoral notch cut was made. The femoral trial was inserted. Trial tibial inserts were placed and size 13 gave balanced ligaments through flexion and extension. Patella tracking was assessed. The patella tracked laterally so a formal lateral release was performed and the patella tracked centrally. The trial components were then removed and the orthomix anesthetic cocktail was injected per protocol. The knee was then copiously irrigated with pulsatile lavage antibiotic solution. Final components were then cemented with Simplex cement. Final components were a left posterior stabilized triathlon [place] total knee replacement with 8 primary tibial baseplate with extra 3 polyethylene size 8 x 13 posterior stabilized tibial insert and X3 polyethylene S 39 x 11 patella. While the cement cured the Betadine soak was used per protocol. After cement cured further pulsatile lavage irrigation performed and 2 Hemovac drains were brought out laterally. The quadriceps tendon and medial retinaculum were closed with figure of 8 #1 Vicryl sutures. The knee was taken through full range of motion and the repair was secure. The subcutaneous tissues were closed with 2-0 Vicryl sutures. Skin was closed with tiffany. Sterile dressings were applied. Patient procedure well. Cameron MCCORMICK was my physician senior office support assistant sosa who assisted in patient positioning prepping and draping,leg positioning ,soft tissue retraction and instrument management and participated in the closing and will participate in postoperative care of the patient. Was increase of difficulty due to his size and obesity and surgical time increased by 15 to 20 minutes. The patient tolerated the procedure well. I attest to the content of the Intraoperative Record and any orders documented therein. Any exceptions are noted below.
[2019-04-23] MEDS: SODIUM CHLORIDE 0.9% 1000ML 1,000 ML IV SCH ×2 (15:38→23:12)
--- NOTE | 2019-04-23 15:46 | Hospitalist Consultation ---
Date of Consultation April 23, 2019 Assessment & Plan (1) S/P knee replacement: OR on 04/[address] Jett As per ortho Pre-op Hb 12.9 (2) Polyneuropathy: Gabapentin as at home (3) CIRA on CPAP: Home CPAP (4) Hypertension: continue home meds (5) Esophageal reflux: continue home meds (6) Woodard's esophagus: continue home meds (7) Atrial fibrillation, permanent: Coumadin 10mg / and 7.5mg other days Resume as per ortho (8) Dyslipidemia: States no current medication for this (9) Diabetes mellitus, controlled: No current meds for this A1c 5.8 (10) DVT prophylaxis: As per ortho History of Present Illness Attending Physician: Paco Jett MD History of Present Illness 63 y/o M who was admitted on 04/23 s/p L TKA with Dr. Jett. Pt is doing well post-op. No pain related to OR. Tolerating PO without issue. Pt denies fever, SOB, chest pain, abd pain, n/v/c/d, LE swelling. Allergies Allergy/AdvReac Type Severity Reaction Status Date / Time hydrochlorothiazide Allergy Mild Hypotension Verified 04/23/19 08:32 [From Aldoril D30] methyldopa [From Aldoril D30] Allergy Mild Hypotension Verified 04/23/19 08:32 Home Medications Home Medications Medication Instructions Recorded Confirmed Type magnesium oxide 400 mg (241.3 mg 400 mg PO BID #180 tab 01/17/19 04/23/19 Rx magnesium) tablet metoprolol tartrate 100 mg tablet 100 mg PO BID #180 tab 01/17/19 04/23/19 Rx tadalafil 10 mg tablet 18.5 mg PO DAILY PRN #90 tab 01/17/19 04/23/19 Rx alfuzosin 10 mg PO HS 03/20/19 04/23/19 History cetirizine 10 mg PO QAM 03/20/19 04/23/19 History cholecalciferol (vitamin D3) 1,000 units PO QAM 03/20/19 04/23/19 History lansoprazole 30 mg PO QAM 03/20/19 04/23/19 History multivitamin [Multiple Vitamins] 1 tab PO QAM 03/20/19 04/23/19 History valsartan-hydrochlorothiazide 1 tab PO QAM 03/20/19 04/23/19 History meloxicam 7.5 mg tablet 7.5 mg PO DAILY 03/26/19 04/23/19 History famotidine 40 mg tablet 40 mg PO DAILY #90 tab 04/09/19 04/23/19 Rx gabapentin 300 mg capsule 300 mg PO QPM #90 cap 04/09/19 04/23/19 Rx warfarin 10 mg tablet 10 mg PO .COMPLEX #24 tab 04/09/19 04/23/19 Rx warfarin 7.5 mg tablet 7.5 mg PO .COMPLEX #65 tab 04/09/19 04/23/19 Rx Colace 1 tab PO BID 04/23/19 04/23/19 History ferrous sulfate [Iron (ferrous 325 mg PO DAILY 04/23/19 04/23/19 History sulfate)] Patient History Medical History Atrial fibrillation, permanent Woodard's esophagus BPH (benign prostatic hyperplasia) Dyslipidemia Esophageal reflux controlled Hypertension Morbid obesity CIRA on CPAP Osteoarthritis Polyneuropathy Surgical History History of esophagogastroduodenoscopy (EGD) History of left hip replacement Hx of laparoscopic gastric banding S/P colonoscopy S/P knee replacement RIGHT S/P rotator cuff repair RIGHT/LEFT; Right shoudler arthroscopy with RCR: 08/22/17: Grade view 1, MAC #4, ETT 8.0 + PNB at [facility] Family History Unknown Patient's father is Diabetes Uterine cancer Father Heart disease Lung disease Mother Hypertension Social History (Updated 04/23/19 @ 15:43 by Lanny Sage DO) Preferred Language: Malay Communication Ability: Effective Software Licensing Executive Required: No Beliefs That Will Affect Care: None marital status: Current Living Situation: Spouse Other Information That Helps Us Care for You: No Feels Safe at Home: Yes Safety Concerns: Feels Safe At This Time Smoking Status: Former smoker Do You Dip or Chew Tobacco: No ; Number of Years Since Quit: 35 ; Second Hand Exposure: No ; Tobacco Cessation Education Request ed by Patient: No Hx Alcohol Use: No Hx Substance Use: No Review of Systems Review of Systems: Pertinent positives and negatives reviewed in HPI--all others negative Physical Exam 2 Constitutional: WD/WN, vitals as above Eyes: normal visual batista by confrontation and + anicteric sclerae Neck: normal visual inspection and trachea midline Respiratory: normal respiratory effort, lungs clear to auscultation Cardiovascular: Rate/Rhythm: regular rate and regular rhythm Gastrointestinal (Abdomen): Inspection/Auscultation: abdomen not distended Percussion/Palpation: abdomen soft; abdomen nontender Musculoskeletal: Head/Neck/Chest: normocephalic and head atraumatic negative for edema, peripheral pulses intact Skin: no rashes, warm and dry Neurologic: awake; not confused Speech / Cognition: normal speech Psychiatric: A+Ox3, euthymic affect Results & Data Vital Signs (Past 12 Hours) Vital Signs Temp Pulse Pulse Resp BP Pulse Ox 04/23/19 15:40 36.7 C 74 18 103/69 93 04/23/19 14:30 51 L 17 116/72 94 04/23/19 14:08 69 18 113/75 93 04/23/19 13:40 36.2 C L 71 18 98/66 L 92 04/23/19 13:25 36.8 C 59 L 14 107/78 97 04/23/19 13:15 70 14 110/68 94 04/23/19 13:05 59 L 14 102/75 99 04/23/19 12:58 36.2 C L 73 14 96/65 L 98 04/23/19 08:41 36.4 C L 79 20 118/84 96 Diagnostic Findings CXR: neg for acute PG Care Time/CCT Total # of Minutes Spent Total Time Spent with Patient: Total time spent is greater than 50% in coordination of care (as documented) at patient's floor/unit and/or counseling patient:
[2019-04-23] MEDS: WARFARIN SOD 7.5 MG TAB PO SCH (16:00)
[2019-04-23] MEDS: ACETAMINOPHEN 500 MG TAB PO SCH (17:04)
[2019-04-23] MEDS: CEFAZOLIN 2000MG 2,000 MG/15 ML SYR IV SCH (17:04)
[2019-04-23] MEDS: METOPROLOL TARTRATE 100 MG TAB PO SCH (20:14)
[2019-04-23] MEDS: ALFUZOSIN HCL 10 MG TAB PO SCH (20:14)
[2019-04-23] MEDS: GABAPENTIN 300 MG CAP PO SCH (20:15)
[2019-04-23] MEDS: MAGNESIUM OXIDE 400 MG TAB PO SCH (20:15)
[2019-04-23] MEDS: SENNA 8.6 MG TAB PO SCH (20:15)
[2019-04-23] MEDS: DOCUSATE SODIUM 100 MG CAP PO SCH (20:16)
[2019-04-23] MEDS ORDERED: COLACE PO SCH (21:00)
[2019-04-23] MEDS: OXYCODONE HCL IR 5 MG TAB (IMMEDIATE RELEASE) PO PRN (23:12)
[2019-04-24] MEDS: CEFAZOLIN 2000MG 2,000 MG/15 ML SYR IV SCH (02:36)
[2019-04-24] MEDS: ACETAMINOPHEN 500 MG TAB PO SCH ×3 (02:36→17:02)
[2019-04-24 06:12] LABS: Hematocrit (blood only) 32.8 % (42-52); Hemoglobin 10.7 g/dL (14.0-18.0); Mean Corpuscular Hemoglobin 29.7 pg (25-34); Mean Corpuscular Hgb Conc 32.6 g/dL (32-36); Mean Corpuscular Volume 91.1 fL (80-100); Mean Platelet Volume 9.5 fL (7.4-10.4); Platelet Count 180 K/uL (130-400); RDW Coefficient of Variation 14.1 % (11.5-14.5); RDW Standard Deviation 47.5 fL (36.4-46.3); White Blood Count 13.18 K/uL (4.8-10.8)
[2019-04-24 06:18] LABS: INR 1.1 (0.9-1.1); Prothrombin Time 11.4 Seconds (9.0-12.0)
[2019-04-24 06:41] LABS: BUN Creatinine Ratio 23.3 (10-20); Calcium 8.8 mg/dl (8.5-10.1); Creatinine Clr Calc Pharmacy 99.5 ml/min; Est GFR (African American) 73.6; Est GFR (Non-African American) 63.5; Potassium 4.1 mmol/L (3.5-5.1)
--- NOTE | 2019-04-24 08:04 | Orthopedic Progress Note ---
Date of Service April 24, 2019 Assessment & Plan (1) Arthritis of left knee: POD #1, Left TKA PT/ OT DVT proph- Coumadin D/C plans- Home w OPPT As per medicine Subjective POD #1, Doing well. Denies SOB, CP, N/V. Pain controlled well. Wishes OPPT at D/C. Physical Exam Physical Exam: Left knee dressings c/d/i. No drainage, drain in tact. Toes/ ankle mobile. No calf tenderness. N/V+ A&Ox3. Results & Data Vital Signs (Past 12 Hours) Vital Signs Temp Pulse Pulse Resp BP Pulse Ox 04/24/19 07:00 36.3 C L 81 16 95/59 L 90 04/24/19 03:40 36.5 C 87 17 98/64 L 91 04/23/19 23:07 36.6 C 80 18 105/70 93 04/23/19 20:19 93 04/23/19 20:00 90 105/70 92
[2019-04-24] MEDS: OXYCODONE HCL IR 5 MG TAB (IMMEDIATE RELEASE) PO PRN ×3 (08:08→23:01)
[2019-04-24] MEDS: MULTIVITAMIN TAB PO SCH (08:09)
[2019-04-24] MEDS: DOCUSATE SODIUM 100 MG CAP PO SCH ×2 (08:09→21:07)
[2019-04-24] MEDS: FAMOTIDINE 20 MG TAB PO SCH (08:09)
[2019-04-24] MEDS: CHOLECALCIFEROL 1,000 UNITS TAB PO SCH (08:09)
[2019-04-24] MEDS: FERROUS SULFATE 325 MG TAB PO SCH (08:09)
[2019-04-24] MEDS: CETIRIZINE HCL 10 MG TABLET PO SCH (08:09)
[2019-04-24] MEDS: PANTOprazole 40 MG TAB PO SCH (08:10)
[2019-04-24] MEDS: MAGNESIUM OXIDE 400 MG TAB PO SCH ×2 (08:11→21:07)
[2019-04-24] MEDS: METOPROLOL TARTRATE 100 MG TAB PO SCH (08:12)
--- NOTE | 2019-04-24 08:13 | Anesthesiology Progress Note ---
Date of Service April 24, 2019 Anesthesia Post Procedure Vital Signs Vital Signs: Temp Pulse Pulse Resp BP Pulse Ox 04/24/19 07:00 36.3 C L 81 16 95/59 L 90 04/24/19 03:40 36.5 C 87 17 98/64 L 91 04/23/19 23:07 36.6 C 80 18 105/70 93 04/23/19 20:19 93 04/23/19 20:00 90 105/70 92 04/23/19 19:24 36.8 C 76 17 111/69 93 04/23/19 16:42 36.5 C 65 17 103/64 96 04/23/19 15:40 36.7 C 74 18 103/69 93 04/23/19 14:30 51 L 17 116/72 94 04/23/19 14:08 69 18 113/75 93 04/23/19 13:40 36.2 C L 71 18 98/66 L 92 04/23/19 13:25 36.8 C 59 L 14 107/78 97 04/23/19 13:15 70 14 110/68 94 04/23/19 13:05 59 L 14 102/75 99 04/23/19 12:58 36.2 C L 73 14 96/65 L 98 04/23/19 08:41 36.4 C L 79 20 118/84 96 Pain Intensity Left Knee: Pain Intensity: 4 Notes Mental Status: alert / awake / arousable and participated in evaluation Nausea / Vomiting: adequately controlled Pain: adequately controlled Airway Patency, RR, SpO2: stable & adequate BP & HR: stable & adequate Hydration State: stable & adequate Neuraxial Anesthesia: sensory block resolved Anesthetic Complications: no major complications apparent
[2019-04-24] MEDS ORDERED: VALSARTAN 80 MG TAB PO SCH (09:00)
[2019-04-24] MEDS ORDERED: MULTIVITAMIN TAB PO SCH (09:00)
[2019-04-24] MEDS ORDERED: hydroCHLOROthiazide 25 MG TAB PO SCH (09:00)
--- NOTE | 2019-04-24 14:50 | Hospitalist Progress Note ---
Date of Service April 24, 2019 Assessment & Plan (1) S/P knee replacement: - S/p left TKA on 04/23, POD#1. - Pain control per primary team. - DVT ppx with home Warfarin -- INR is subtherapeutic. - Monitor CBC daily to evaluate for acute blood loss anemia. - PT/OT for discharge planning. (2) Polyneuropathy: - Continue Gabapentin 300 mg as prescribed. (3) CIRA on CPAP: - CPAP qhs. (4) Hypertension: - BP has been low -- SBP 90's. - Start NS at 80 cc/hr for gentle IV fluid hydration for hypotension that has persisted throughout the day. - Holding home HCTZ and Valsartan. Decrease Metoprolol to 25 mg BID (avoid rebound tachycardia in setting of A. fib) (5) Esophageal reflux: - PPI & H2RA daily. (6) Woodard's esophagus: - Meds as noted above. (7) Atrial fibrillation, permanent: - Continue Metoprolol but decrease to 25 mg BID (to avoid rebound tachycardia) in setting of hypotension. - Continue Warfarin -- INR was subtherapeutic at 1.1 today, monitor daily. (8) Dyslipidemia: - Not currently on statin agent. (9) Diabetes mellitus, controlled: - A1c was 5.8. - Not currently on meds. (10) Acute blood loss anemia: - In post op setting; continue to trend H/H daily. - Transfuse for hgb <8. - Ferrous sulfate 325 mg PO daily. (11) DVT prophylaxis: - Continue home Warfarin. Dispo: Med/surg; will continue to follow, please call with any questions. Subjective Pt. is doing well overall. Does have left knee pain. Is passing gas, no BM yet. Review of Systems Review of Systems: All systems reviewed & are unremarkable except as noted in HPI & below Constitutional: no fever, no chills, no fatigue and no weakness Respiratory: no cough, no dyspnea, no dyspnea on exertion and no wheezing Cardiovascular: no chest pain, no palpitations and no edema Gastrointestinal: + constipation; no abdominal pain and no nausea Genitourinary: no difficulty urinating Musculoskeletal: + joint pain; no back pain Physical Exam Physical Exam: General: Resting comfortably HEENT: NC/AT; PERRLA with EOMI; [place] conjunctiva, MMM. No erythema of posterior pharynx Neck: Supple and nontender Cardiac: RRR Lungs: CTA bilaterally Abdomen: Bowel normoactive X 4; Nontender to palpation Extremities: Warm. No edema present. Left knee with dressing in place, no discharge noted. Neuro: No focal weakness Skin: No rash Results & Data Vital Signs (Past 12 Hours) Vital Signs Temp Pulse Pulse Resp BP Pulse Ox 04/24/19 11:00 36.9 C 84 18 99/66 L 92 04/24/19 07:00 36.3 C L 81 16 95/59 L 90 04/24/19 03:40 36.5 C 87 17 98/64 L 91 Laboratory Results 04/24/19 04/24/19 04/24/19 Range/Units 05:54 05:54 05:54 WBC 13.18 H (4.8-10.8) K/uL RBC 3.60 L (4.7-6.1) M/uL Hgb 10.7 L (14.0-18.0) g/dL Hct 32.8 L (42-52) % MCV 91.1 (80-100) fL MCH 29.7 (25-34) pg MCHC 32.6 (32-36) g/dL RDW Std Deviation 47.5 H (36.4-46.3) fL RDW Coeff of Kimo 14.1 (11.5-14.5) % Plt Count 180 (130-400) K/uL MPV 9.5 (7.4-10.4) fL PT 11.4 (9.0-12.0) Seconds INR 1.1 (0.9-1.1) Sodium 140 (136-145) mmol/L Potassium 4.1 (3.5-5.1) mmol/L Chloride 108 H (98-107) mmol/L Carbon Dioxide 23 (21-32) mmol/L Anion Gap 9.0 (3-11) BUN 28 H (7-18) mg/dl Creatinine 1.20 (0.6-1.4) mg/dl Est Cr Clr Drug Dosing 99.5 ml/min Est GFR ( Amer) 73.6 Est GFR (Non-Af Amer) 63.5 BUN/Creatinine Ratio 23.3 H (10-20) Glucose 130 H (70-99) mg/dl Calcium 8.8 (8.5-10.1) mg/dl PG Care Time/CCT Total # of Minutes Spent Total Time Spent with Patient: Total time spent is greater than 50% in coordination of care (as documented) at patient's floor/unit and/or counseling patient:
[2019-04-24] MEDS: SODIUM CHLORIDE 0.9% 1000ML 1,000 ML IV SCH ×2 (15:10→19:45)
[2019-04-24] MEDS ORDERED: WARFARIN SOD 10 MG TAB PO SCH (16:00)
[2019-04-24] MEDS ORDERED: SODIUM CHLORIDE 0.9% 1000ML 500 ML IV ONE (17:35)
[2019-04-24] MEDS ORDERED: METOPROLOL TARTRATE 25 MG TAB PO SCH (21:00)
[2019-04-24] MEDS: GABAPENTIN 300 MG CAP PO SCH (21:07)
[2019-04-24] MEDS: SENNA 8.6 MG TAB PO SCH (21:07)
[2019-04-24] MEDS: ALFUZOSIN HCL 10 MG TAB PO SCH (21:07)
[2019-04-25] MEDS: ACETAMINOPHEN 500 MG TAB PO SCH ×2 (02:30→09:57)
[2019-04-25] MEDS: SODIUM CHLORIDE 0.9% 1000ML 1,000 ML IV SCH (05:03)
[2019-04-25 05:43] LABS: Hematocrit (blood only) 28.5 % (42-52); Hemoglobin 9.5 g/dL (14.0-18.0); Mean Corpuscular Hemoglobin 30.5 pg (25-34); Mean Corpuscular Hgb Conc 33.3 g/dL (32-36); Mean Corpuscular Volume 91.6 fL (80-100); Mean Platelet Volume 9.5 fL (7.4-10.4); Platelet Count 144 K/uL (130-400); RDW Coefficient of Variation 14.5 % (11.5-14.5); RDW Standard Deviation 48.5 fL (36.4-46.3); Red Blood Count 3.11 M/uL (4.7-6.1); White Blood Count 8.63 K/uL (4.8-10.8)
[2019-04-25 05:59] LABS: INR 1.2 (0.9-1.1); Prothrombin Time 12.2 Seconds (9.0-12.0)
[2019-04-25 06:18] LABS: BUN Creatinine Ratio 22.4 (10-20); Calcium 8.1 mg/dl (8.5-10.1); Creatinine Clr Calc Pharmacy 113.7 ml/min; Est GFR (African American) 86.5; Est GFR (Non-African American) 74.7; Potassium 3.9 mmol/L (3.5-5.1)
[2019-04-25] MEDS: OXYCODONE HCL IR 5 MG TAB (IMMEDIATE RELEASE) PO PRN ×2 (08:05→15:43)
[2019-04-25] MEDS: PANTOprazole 40 MG TAB PO SCH (08:06)
[2019-04-25] MEDS: FAMOTIDINE 20 MG TAB PO SCH (08:06)
[2019-04-25] MEDS: MULTIVITAMIN TAB PO SCH (08:06)
[2019-04-25] MEDS: CETIRIZINE HCL 10 MG TABLET PO SCH (08:06)
[2019-04-25] MEDS: FERROUS SULFATE 325 MG TAB PO SCH (08:06)
[2019-04-25] MEDS: CHOLECALCIFEROL 1,000 UNITS TAB PO SCH (08:06)
[2019-04-25] MEDS: DOCUSATE SODIUM 100 MG CAP PO SCH (08:06)
[2019-04-25] MEDS: MAGNESIUM OXIDE 400 MG TAB PO SCH (08:06)
[2019-04-25] MEDS ORDERED: METOPROLOL TARTRATE 25 MG TAB PO SCH (09:00)
--- NOTE | 2019-04-25 10:57 | Orthopedic Progress Note ---
Date of Service April 25, 2019 Assessment & Plan (1) Arthritis of left knee: POD #2, Left TKA PT/ OT DVT proph- Coumadin D/C plans- Home w OPPT plan on d/c home after PT today. to follow up with his PCP in regards to his INR Subjective POD #2, Doing well. Denies SOB, CP, N/V. Pain controlled well. Wishes OPPT at D/C. Review of Systems Review of Systems: All systems reviewed & are unremarkable except as noted in HPI & below Constitutional: no fever and no chills Cardiovascular: no chest pain, no dyspnea and no orthopnea Physical Exam Physical Exam: Vital Signs Temp 36.7 C 04/25/19 06:05 Pulse 95 H 04/25/19 07:55 Resp 16 04/25/19 06:05 BP 118/73 04/25/19 07:55 Pulse Ox 92 04/25/19 06:05 Intake & Output 04/24/19 04/25/19 04/25/19 18:59 06:59 18:59 Intake Total 1193.333 / 3090.00 0 1896.667 / 3090.00 0 310 / 310 Output Total 350 / 1200 850 / 1200 350 / 350 Balance 843.333 / 7084.899 3296.667 / 1890.00 0 -40 / -40 Intake: IV 693.333 / 1614.116 3269.667 / 1840.00 0 310 / 310 Nss 1000ML 1,0 00 ml @ 100 mls/ 693.333 / 1520.751 0199.667 / 1840.00 0 310 / 310 hr IV .Q10H SC H Rx#:[id number] Oral 500 / 1250 750 / 1250 Output: Urine 200 / 750 550 / 750 350 / 350 Drain Output 150 / 450 300 / 450 Left Knee Hemo vac 150 / 450 300 / 450 Constitutional: WD/WN, vitals as above no acute distress Musculoskeletal: left knee: NVDI, calf SNT, negative gen sign. DP palpable, able to wiggle toes/ankle movement without difficulty. Silverlon dressing clean dry and intact. expected post-operative bruising noted. Results & Data Vital Signs (Past 12 Hours) Vital Signs Temp Pulse Resp BP Pulse Ox 04/25/19 07:55 95 H 118/73 04/25/19 06:05 36.7 C 94 H 16 97/62 L 92 04/25/19 02:30 96 H 116/68 Laboratory Results Laboratory Results WBC 8.63 K/uL (4.8-10.8) 04/25/19 05:13 RBC 3.11 M/uL (4.7-6.1) L 04/25/19 05:13 Hgb 9.5 g/dL (14.0-18.0) L 04/25/19 05:13 Hct 28.5 % (42-52) L 04/25/19 05:13 MCV 91.6 fL (80-100) 04/25/19 05:13 MCH 30.5 pg (25-34) 04/25/19 05:13 MCHC 33.3 g/dL (32-36) 04/25/19 05:13 RDW Std Deviation 48.5 fL (36.4-46.3) H 04/25/19 05:13 RDW Coeff of Kimo 14.5 % (11.5-14.5) 04/25/19 05:13 Plt Count 144 K/uL (130-400) 04/25/19 05:13 MPV 9.5 fL (7.4-10.4) 04/25/19 05:13 Immature Gran % (Auto) 0.2 % 03/23/19 12:25 Neut % (Auto) 72.3 % 03/23/19 12:25 Lymph % (Auto) 14.4 % 03/23/19 12:25 [place] % (Auto) 8.2 % 03/23/19 12:25 Eos % (Auto) 4.7 % 03/23/19 12:25 Baso % (Auto) 0.2 % 03/23/19 12:25 Immature Gran # (Auto) 0.02 K/uL (0.00-0.02) 03/23/19 12:25 Neut # (Auto) 6.20 K/uL (1.4-6.5) 03/23/19 12:25 Lymph # (Auto) 1.23 K/uL (1.2-3.4) 03/23/19 12:25 [place] # (Auto) 0.70 K/uL (0.11-0.59) H 03/23/19 12:25 Eos # (Auto) 0.40 K/uL (0-0.5) 03/23/19 12:25 Baso # (Auto) 0.02 K/uL (0-0.2) 03/23/19 12:25 PT 12.2 Seconds (9.0-12.0) H 04/25/19 05:13 INR 1.2 (0.9-1.1) H 04/25/19 05:13 APTT 27.2 Seconds (21.0-31.0) 04/23/19 08:24 PTT Ratio 1.0 04/23/19 08:24 Sodium 139 mmol/L (136-145) 04/25/19 05:13 Potassium 3.9 mmol/L (3.5-5.1) 04/25/19 05:13 Chloride 108 mmol/L (98-107) H 04/25/19 05:13 Carbon Dioxide 26 mmol/L (21-32) 04/25/19 05:13 Anion Gap 5.0 (3-11) 04/25/19 05:13 BUN 24 mg/dl (7-18) H 04/25/19 05:13 Creatinine 1.05 mg/dl (0.6-1.4) 04/25/19 05:13 Est Cr Clr Drug Dosing 113.7 ml/min 04/25/19 05:13 Est GFR ( Amer) 86.5 04/25/19 05:13 Est GFR (Non-Af Amer) 74.7 04/25/19 05:13 BUN/Creatinine Ratio 22.4 (10-20) H 04/25/19 05:13 Glucose 108 mg/dl (70-99) H 04/25/19 05:13 Estimat Average Glucose 120 mg/dl 03/23/19 12:25 Hemoglobin A1c 5.8 % (4.5-5.6) H 03/23/19 12:25 Calcium 8.1 mg/dl (8.5-10.1) L 04/25/19 05:13 Albumin 3.8 gm/dl (3.4-5.0) 03/23/19 12:25 Urine Color Yellow 03/23/19 12:25 Urine Appearance Clear (Clear) 03/23/19 12:25 Urine pH 5.0 (4.5-7.5) 03/23/19 12:25 Ur Specific [place] 1.020 (1.000-1.030) 03/23/19 12:25 Urine Protein Negative (Negative) 03/23/19 12:25 Urine Glucose (UA) Negative (Negative) 03/23/19 12:25 Urine Ketones Negative (Negative) 03/23/19 12:25 Urine Blood Negative (Negative) 03/23/19 12:25 Urine Nitrite Negative (Negative) 03/23/19 12:25 Urine Bilirubin Negative (Negative) 03/23/19 12:25 Urine Urobilinogen Negative (Negative) 03/23/19 12:25 Ur Leukocyte Esterase Negative (Negative) 03/23/19 12:25 Blood Type O Positive 03/23/19 12:25 Antibody Screen NEGATIVE 03/23/19 12:25
--- NOTE | 2019-04-25 12:45 | Hospitalist Progress Note ---
Date of Service April 25, 2019 Assessment & Plan (1) S/P knee replacement: - S/p left TKA on 04/23, POD#2. - Pain control per primary team. - DVT ppx with home Warfarin -- INR remains subtherapeutic. - Monitor CBC - below baseline in post op setting but stable. - PT/OT - home with home health at discharge. (2) Polyneuropathy: - Continue Gabapentin 300 mg as prescribed. (3) CIRA on CPAP: - CPAP qhs. (4) Hypertension: - BP was low, SBP 90's on 04/24. Received bolus and IV fluid hydration. SBP now improved, 110's today. - Will continue to hold home HCTZ and Valsartan at discharge. - Decrease Metoprolol to 50 mg BID to avoid rebound tachycardia/in setting of A. fib. - F/u with PCP to discuss BP management. (5) Esophageal reflux: - PPI & H2RA daily. (6) Woodard's esophagus: - Meds as noted above. (7) Atrial fibrillation, permanent: - Continue Metoprolol but decrease to 50 mg BID (to avoid rebound tachycardia) in setting of hypotension. - Continue Warfarin -- INR was subtherapeutic at 1.2. Will need to f/u with PCP as outpatient. (8) Dyslipidemia: - Not currently on statin agent. (9) Diabetes mellitus, controlled: - A1c was 5.8. - Not currently on meds. (10) Acute blood loss anemia: - In post op setting. Did not require transfusion support. - Ferrous sulfate 325 mg PO daily. (11) DVT prophylaxis: - Continue home Warfarin. Dispo: Medically stable for discharge, will sign off. Subjective Pt. is doing well overall. BP is stable, SBP 110's overnight. He is passing gas, no BM yet. Denies urinary retention. Plan for discharge today. Review of Systems Review of Systems: All systems reviewed & are unremarkable except as noted in HPI & below Constitutional: no fever, no chills, no fatigue and no weakness Respiratory: no cough, no dyspnea, no dyspnea on exertion and no wheezing Cardiovascular: no chest pain, no palpitations and no edema Gastrointestinal: + constipation; no abdominal pain, no nausea and no vomiting Genitourinary: no difficulty urinating Musculoskeletal: + joint pain; no back pain Integumentary: no non-healing lesions Physical Exam Physical Exam: General: Resting comfortably HEENT: NC/AT; PERRLA with EOMI; [place] conjunctiva, MMM. No erythema of posterior pharynx Neck: Supple and nontender Cardiac: RRR Lungs: CTA bilaterally Abdomen: Bowel normoactive X 4; Nontender to palpation Extremities: Warm. No edema present. Left knee with dressing in place. Neuro: No focal weakness Skin: No rash Results & Data Vital Signs (Past 12 Hours) Vital Signs Temp Pulse Resp BP Pulse Ox 04/25/19 07:55 95 H 118/73 04/25/19 06:05 36.7 C 94 H 16 97/62 L 92 04/25/19 02:30 96 H 116/68 Laboratory Results 04/25/19 04/25/19 04/25/19 Range/Units 05:13 05:13 05:13 WBC 8.63 (4.8-10.8) K/uL RBC 3.11 L (4.7-6.1) M/uL Hgb 9.5 L (14.0-18.0) g/dL Hct 28.5 L (42-52) % MCV 91.6 (80-100) fL MCH 30.5 (25-34) pg MCHC 33.3 (32-36) g/dL RDW Std Deviation 48.5 H (36.4-46.3) fL RDW Coeff of Kimo 14.5 (11.5-14.5) % Plt Count 144 (130-400) K/uL MPV 9.5 (7.4-10.4) fL PT 12.2 H (9.0-12.0) Seconds INR 1.2 H (0.9-1.1) Sodium 139 (136-145) mmol/L Potassium 3.9 (3.5-5.1) mmol/L Chloride 108 H (98-107) mmol/L Carbon Dioxide 26 (21-32) mmol/L Anion Gap 5.0 (3-11) BUN 24 H (7-18) mg/dl Creatinine 1.05 (0.6-1.4) mg/dl Est Cr Clr Drug Dosing 113.7 ml/min Est GFR ( Amer) 86.5 Est GFR (Non-Af Amer) 74.7 BUN/Creatinine Ratio 22.4 H (10-20) Glucose 108 H (70-99) mg/dl Calcium 8.1 L (8.5-10.1) mg/dl PG Care Time/CCT Total # of Minutes Spent Total Time Spent with Patient: Total time spent is greater than 50% in coordination of care (as documented) at patient's floor/unit and/or counseling patient:
[2019-04-25] MEDS: WARFARIN SOD 7.5 MG TAB PO SCH (15:45)
--- NOTE | 2019-05-07 23:02 | Discharge Summary ---
HISTORY OF PRESENT ILLNESS: This is a 63-year-old male patient of Dr. Jett's complaining of chronic left knee pain, longstanding, now progressively getting worse. The patient failed conservative treatment and elected to proceed with a left total knee arthroplasty. PAST MEDICAL HISTORY: Hypertension, atrial fibrillation, sleep apnea with use of CPAP, osteoarthritis and obesity. POSTOPERATIVE COURSE: The patient underwent a left total knee arthroplasty on 04/23/2019. He was followed closely with medical consultation, physical therapy, pain control and DVT prophylaxis in the form of Coumadin, which he was previously on. Otherwise, his postoperative course was uneventful. PHYSICAL EXAMINATION: On discharge, left knee Silverlon dressing was clean, dry and intact. There is no redness or drainage. He had no calf tenderness. Negative Homans sign. Toes and ankle were mobile. Neurologically and neurovascularly, he was intact in his left lower extremity. DIAGNOSES: Left knee end-stage osteoarthritis, status post total knee arthroplasty, hypertension, atrial fibrillation, sleep apnea, osteoarthritis and obesity. PLAN: The patient was discharged home with outpatient physical therapy. We will continue his preadmission medications with the addition of pain medications and he will contact his family physician for the upcoming week from discharge about getting his Coumadin therapeutic. The patient will follow up with Dr. Jett as scheduled as an outpatient.
== END 2019-04-25 16:29 | disposition home or self-care (01) | DRG 470 ==
LOC: ASU 08:01 → 3E 13:03

== ENCOUNTER 2020-09-24 09:49 | Inpatient (IN) ==
--- NOTE | 2020-08-28 09:06 | PAT Medication Instructions ---
Medication Instructions Date of Service August 28, 2020 Home Medications Medication Instructions Recorded magnesium oxide 400 mg (241.3 mg 400 mg PO BID #180 tab 01/17/19 magnesium) tablet tadalafil 10 mg tablet 18.5 mg PO DAILY PRN #90 tab 08/07/19 alfuzosin 10 mg tablet,extended 10 mg PO HS #90 tab 01/05/20 release 24 hr gabapentin 300 mg capsule 300 mg PO TID #270 cap 01/14/20 atorvastatin 40 mg PO HS #90 tab 03/06/20 warfarin 10 mg tablet 10 mg PO .COMPLEX #24 tab 04/25/20 warfarin 7.5 mg tablet 7.5 mg PO .COMPLEX #65 tab 04/25/20 meloxicam 7.5 mg tablet 7.5 mg PO DAILY PRN #90 tab 04/28/20 lansoprazole 30 mg capsule,delayed 30 mg PO QAM #90 cap 07/24/20 release metoprolol tartrate 100 mg tablet 100 mg PO BID #180 tab 07/30/20 magnesium oxide 400 mg (241.3 mg magnesium) tablet 400 mg PO BID cetirizine 10 mg PO QAM cholecalciferol (vitamin D3) 1,000 units PO QAM multivitamin [Multiple Vitamins] 1 tab PO QAM tadalafil 10 mg tablet 18.5 mg PO DAILY PRN alfuzosin 10 mg tablet,extended release 24 hr 10 mg PO HS gabapentin 300 mg capsule 300 mg PO TID atorvastatin 40 mg PO HS warfarin 10 mg tablet 10 mg PO .COMPLEX warfarin 7.5 mg tablet 7.5 mg PO .COMPLEX meloxicam 7.5 mg tablet 7.5 mg PO DAILY PRN lansoprazole 30 mg capsule,delayed release 30 mg PO QAM metoprolol tartrate 100 mg tablet 100 mg PO BID docusate sodium [Stool Softener] 100 mg PO BID famotidine 40 mg PO QPM furosemide [Lasix] 20 mg PO QAM valsartan-hydrochlorothiazide 1 tab PO QAM ASK your surgeon for instructions meloxicam 7.5 mg tablet 7.5 mg PO DAILY PRN ASK your prescriber and surgeon warfarin 10 mg tablet 10 mg PO .COMPLEX warfarin 7.5 mg tablet 7.5 mg PO .COMPLEX DO NOT take the morning of surgery magnesium oxide 400 mg (241.3 mg magnesium) tablet 400 mg PO BID cetirizine 10 mg PO QAM cholecalciferol (vitamin D3) 1,000 units PO QAM multivitamin [Multiple Vitamins] 1 tab PO QAM tadalafil 10 mg tablet 18.5 mg PO DAILY PRN docusate sodium [Stool Softener] 100 mg PO BID furosemide [Lasix] 20 mg PO QAM valsartan-hydrochlorothiazide 1 tab PO QAM Take morning of surgery With a small sip of water, OTHERWISE NOTHING TO EAT OR DRINK AFTER MIDNIGHT: gabapentin 300 mg capsule 300 mg PO TID lansoprazole 30 mg capsule,delayed release 30 mg PO QAM metoprolol tartrate 100 mg tablet 100 mg PO BID Take evening before surgery magnesium oxide 400 mg (241.3 mg magnesium) tablet 400 mg PO BID tadalafil 10 mg tablet 18.5 mg PO DAILY PRN (if needed) alfuzosin 10 mg tablet,extended release 24 hr 10 mg PO HS gabapentin 300 mg capsule 300 mg PO TID atorvastatin 40 mg PO HS metoprolol tartrate 100 mg tablet 100 mg PO BID docusate sodium [Stool Softener] 100 mg PO BID famotidine 40 mg PO QPM Other Notes If you have any questions please call us at [phone] or [phone] or [phone] or [phone]
--- NOTE | 2020-08-29 10:53 | Anesthesiology Consultation ---
Date of Service August 29, 2020 Assessment & Plan (1) Encounter for pre-operative examination: Cardiology Clearance 08/29/20 = "He is currently stable and asymptomatic from a cardiovascular standpoint with no anginal symptoms. He has no evidence of CHF or significant valvular abnormality. His heart rate and blood pressure are adequately controlled. Given this information, the patient is at an acceptable risk to proceed with upcoming surgery without any additional cardiovascular testing or intervention. He should remain on beta matilda therapy throughout the perioperative period. He can hold warfarin for 5 days prior to surgery and resume once safe from a bleeding standpoint" PCP clearance 08/27/2020: "Labs reviewed, WNL. Cardiology reports he is safe to proceed with surgery. Patient is medically optimized for right LILA on 09/03/2020." COVID Status: As of 08/29 assessment, patient denies travel to endemic area, known exposure/sick contacts, or symptoms of COVID19. He and his have been residing in [place], [place] for the past 2 months and just returned on 08/22/2020. They were extremely cautious in their travels and camped in their RV, staying away from other people. Preoperative COVID19 testing completed at [facility] 08/29. Patient made aware to self-isolate as much as possible between COVID testing and surgery. CHECK PT/INR/PTT AND BSG AM DOS. Chart Review Chart Review: Acceptable Risk for Surgery and Patient seen in Pre Admission Testing History Surgery Operation Date: 09/03/20 07:15 Proposed Procedures p Right Total Hip Arthroplasty - Paco Jett MD Height/Weight Height: 6 ft 3.75 in Weight: 154.7 kg Allergies Allergy/AdvReac Type Severity Reaction Status Date / Time hydrochlorothiazide Allergy Mild Hypotension Verified 08/26/20 13:00 [From Aldoril D30] methyldopa [From Aldoril D30] Allergy Mild Hypotension Verified 08/26/20 13:00 Medications Home Medications Medication Instructions Recorded Confirmed Last Taken magnesium oxide 400 mg (241.3 mg 400 mg PO BID #180 tab 01/17/19 08/26/20 04/22/19 22:00 magnesium) tablet cetirizine 10 mg PO QAM 03/20/19 08/26/20 04/22/19 07:00 cholecalciferol (vitamin D3) 1,000 units PO QAM 03/20/19 08/26/20 04/22/19 07:00 multivitamin [Multiple Vitamins] 1 tab PO QAM 03/20/19 08/26/20 04/22/19 07:00 tadalafil 10 mg tablet 18.5 mg PO DAILY PRN #90 tab 08/07/19 08/26/20 Unknown alfuzosin 10 mg tablet,extended 10 mg PO HS #90 tab 01/05/20 08/26/20 Unknown release 24 hr gabapentin 300 mg capsule 300 mg PO TID #270 cap 01/14/20 08/26/20 Unknown atorvastatin 40 mg PO HS #90 tab 03/06/20 08/26/20 Unknown warfarin 10 mg tablet 10 mg PO .COMPLEX #24 tab 04/25/20 08/26/20 Unknown warfarin 7.5 mg tablet 7.5 mg PO .COMPLEX #65 tab 04/25/20 08/26/20 Unknown meloxicam 7.5 mg tablet 7.5 mg PO DAILY PRN #90 tab 04/28/20 08/26/20 Unknown lansoprazole 30 mg capsule,delayed 30 mg PO QAM #90 cap 07/24/20 08/26/20 Unknown release metoprolol tartrate 100 mg tablet 100 mg PO BID #180 tab 07/30/20 08/26/20 Unknown docusate sodium [Stool Softener] 100 mg PO BID 08/14/20 08/26/20 Unknown famotidine 40 mg PO QPM 08/14/20 08/26/20 Unknown furosemide [Lasix] 20 mg PO QAM 08/14/20 08/26/20 Unknown valsartan-hydrochlorothiazide 1 tab PO QAM 08/14/20 08/26/20 Unknown Past Medical History Medical History Atrial fibrillation, permanent Follows with Dr. Gama; on warfarin Woodard's esophagus Benign localized hyperplasia of prostate with urinary obstruction Benign positional vertigo Cardiomegaly DM type 2 (diabetes mellitus, type 2) diet controlled Dyslipidemia Esophageal reflux Hypertension Mild CAD Obesity CIRA on CPAP 100% compliant. Osteoarthritis Polyneuropathy Exercise / Class Metabolic Activity III < 4 Walking/Shop/Light housework (Denies CP or SOB with ambulation on one level. Some [place] with 1 FOS but does not do regularly.) Past Family History Family History Unknown Patient's father is Diabetes Uterine cancer Father Heart disease Lung disease Mother Hypertension Past Surgical History Surgical History History of esophagogastroduodenoscopy (EGD) History of left hip replacement Hx of laparoscopic gastric banding S/P cardiac cath 03/2020 ID - + stress test - no stents/angioplasty S/P colonoscopy S/P knee replacement RIGHT S/P rotator cuff repair RIGHT/LEFT; Right shoudler arthroscopy with RCR: 08/22/17: Grade view 1, MAC #4, ETT 8.0 + PNB at [facility] S/P total knee arthroplasty 04/23/19 Dr. Paco Jett- Left Past Anesthesia History No Hx of Anesthesia Complications and No Family Hx of Anesthesia Complications History of PONV No Hx of PONV and No Hx of Motion Sickness Social History Smoking Status: Former smoker Do You Dip or Chew Tobacco: No Smoking End Date: 35 years ago Hx Alcohol Use: Yes Alcohol type: beer alcohol intake frequency: holidays/special occasions only Hx Substance Use: No substance use type: does not use Review of Systems Pt denies any recent chest pain, shortness of breath, palpitations, cough, fever, URI, or uncontrolled acid reflux. Physical Exam Vital Signs BP: 135/79 P: 73bpm SPO2: 97% RA T: 97.8 F R: 16 ENMT Mouth: + dentures (full lower, partial upper); no chipped teeth and no loose teeth Thyromental Distance: > or= 3.5 Finger Breadths Mallampati Class: II Neck + thick neck; neck extension not limited Respiratory normal respiratory effort, lungs clear to auscultation Cardiovascular Rate/Rhythm: + irregularly irregular Heart Sounds: no murmur Extremities: no edema Testing Laboratory Results PT 25.6 Seconds (9.0-12.0) H 08/29/20 11:35 INR 2.7 (0.9-1.1) H 08/29/20 11:35 APTT 40.7 Seconds (21.0-31.0) H 08/29/20 11:35 Urine Color Yellow 08/29/20 11:35 Urine Appearance Clear (Clear) 08/29/20 11:35 Urine pH 5.0 (4.5-7.5) 08/29/20 11:35 Ur Specific [place] 1.023 (1.000-1.030) 08/29/20 11:35 Urine Protein Negative (Negative) 08/29/20 11:35 Urine Glucose (UA) Negative (Negative) 08/29/20 11:35 Urine Ketones Negative (Negative) 08/29/20 11:35 Urine Nitrite Negative (Negative) 08/29/20 11:35 Ur Leukocyte Esterase Negative (Negative) 08/29/20 11:35 Blood Type O Positive 08/29/20 11:35 Antibody Screen NEGATIVE 08/29/20 11:35 08/25/20 WBC: 6.82 H/H: 12.8/38.0 PLATELETS: 244 SODIUM: 138 POTASSIUM: 4.9 CHLORIDE: 107 CO2: 26 BUN: 29 CREATININE: 1.08 GLUCOSE: 102 A1C: 5.4% Electrocardiogram Date: 08/29/20 Findings: + AFIB @ (76bpm) and + RBBB No significant change from 03/23/2019 EKG. Chest X-Ray Date: 08/29/20 Findings: + NAD Echocardiogram Date: 08/04/15 EF: 50-55% Grossly normal LV size. Systolic function appears to be low normal, but left ventricle was not well visualized. Cannot rule out regional wall motion abnormalities. Septal motion consistent with bundle branch block. Moderate concentric LVH. Right ventricle is not well visualized but appears to be mildly dilated with grossly normal systolic function. Left atrium not well visualized but appears to be at least mildly dilated. No significant valvular abnormalities visualized. Technically difficult study, without significant enhancement with IV Definity. Poor quality study. Stress Test Date: 03/05/20 Ejection fraction: 51 % Wall motion: Normal No significant transient ischemic dilation. Impression: 1. Abnormal myocardial perfusion study suggesting apical and basal inferior ischemia. 2. Fixed inferior defect may be due to diaphragmatic attenuation given normal wall motion in that territory. 3. Calculated EF was 51%, but underlying atrial fibrillation limits wall motion and EF evaluation. 4. Atrial fibrillation throughout. 5. Nondiagnostic Lexiscan ECG. 6. Patient will be contacted regarding results. See cardiac cath below -- nonobstructive. False + stress test. Cardiac Catheterization Date: 03/06/20 Impression: 1. Mild nonobstructive CAD. 2. Elevated left-sided filling pressure. 3. No aortic stenosis.
--- NOTE | 2020-08-29 12:05 | XRay Report ---
XR chest Pre-admission PA/Lat HISTORY: Preop. COMPARISON: Chest 03/23/2019. FINDINGS: The cardiac silhouette is normal in size. No focal lung consolidations to suggest pneumonia . No evidence for pulmonary edema. No pleural effusions. No pneumothorax. A gastric lap band is parti ally visualized. Moderate degenerative changes within the thoracic spine. IMPRESSION: No acute process. ACT 112: Negative or not required by law. Electronically signed by: Les Renteria M.D. 08/29/2020 12:04 PM
[2020-08-29 13:18] LABS: Appearance Urine Clear (Clear); Bilirubin Urine Negative (Negative); Blood Urine Negative (Negative); Color Urine Yellow; Glucose Urine UA Negative (Negative); Ketones Urine Negative (Negative); Leukocyte Esterase Urine Negative (Negative); Nitrite Urine Negative (Negative); Protein Urine Negative (Negative); Specific Gravity Urine 1.023 (1.000-1.030); Urobilinogen Urine Negative (Negative)
[2020-08-29 13:49] LABS: INR 2.7 (0.9-1.1); Partial Thromboplastin Ratio 1.5; Partial Thromboplastin Time 40.7 Seconds (21.0-31.0); Prothrombin Time 25.6 Seconds (9.0-12.0)
--- NOTE | 2020-08-29 16:06 | Electrocardiogram Report ---
Test Reason : Blood Pressure : / mmHG Vent. Rate : 076 BPM Atrial Rate : 097 BPM P-R Int : 000 ms QRS Dur : 164 ms QT Int : 442 ms P-R-T Axes : 000 025 035 degrees QTc Int : 497 ms Atrial fibrillation Right bundle branch block Abnormal ECG When compared with ECG of 23-MAR-2019 12:32, No significant change was found Confirmed by Veto Beltran ([id number]) on 08/29/2020 4:05:56 PM Referred By: Paco Jett Confirmed By:Christiano Beltran
--- NOTE | 2020-08-31 21:06 | History & Physical Report ---
Date of Service August 31, 2020 Assessment & Plan (1) Primary osteoarthritis of right hip: Treatment options discussed with patient. He has failed conservative measures. Risks, benefits and alternatives to surgery including but not limited to infection, DVT, pain, stiffness, need for revision surgery, damage to blood vessels, damage to nerves, PE, , were discussed with the patient and they wish to proceed. Plan for right total hip arthroplasty at [facility] on 09/03/[address] Jett. Will plan on outpatient PT post discharge. He will resume his home Warfarin post operatively. On 08/29 his INR was 2.7. He is holding his Warfarin for 5 days preoperatively. Will need to be rechecked DOS. All questions answered. F/u post operatively. History of Present Illness Chief Complaint: Right hip pain Primary Care Provider: Aleida Knapp, 65 year old male with PMHx significant for HTN, CIRA, BPH, DM2, CAD, a-fib anticoagulated on Warfarin with longstanding right hip pain. He has had previous left hip replacement. He has failed conservative measures. Pain interfering with his ability to carry out daily activites. He would like to proceed with right hip replacement. Patient denies headaches, sweats, fevers, chills, double vision, blurred vision, cough, sore throat, dysphagia, chest pain, sob, wheezing, n/v/d/c, numbness, tingling, fatigue, urinary symptoms, mood disorders. ROS positive for right hip pain and stiffness. Allergies Allergy/AdvReac Type Severity Reaction Status Date / Time hydrochlorothiazide Allergy Mild Hypotension Verified 08/26/20 13:00 [From Aldoril D30] methyldopa [From Aldoril D30] Allergy Mild Hypotension Verified 08/26/20 13:00 Home Medications Medication Instructions Recorded Confirmed Type magnesium oxide 400 mg (241.3 mg 400 mg PO BID #180 tab 01/17/19 08/26/20 Rx magnesium) tablet cetirizine 10 mg PO QAM 03/20/19 08/26/20 History cholecalciferol (vitamin D3) 1,000 units PO QAM 03/20/19 08/26/20 History multivitamin [Multiple Vitamins] 1 tab PO QAM 03/20/19 08/26/20 History tadalafil 10 mg tablet 18.5 mg PO DAILY PRN #90 tab 08/07/19 08/26/20 Rx alfuzosin 10 mg tablet,extended 10 mg PO HS #90 tab 01/05/20 08/26/20 Rx release 24 hr gabapentin 300 mg capsule 300 mg PO TID #270 cap 01/14/20 08/26/20 Rx atorvastatin 40 mg PO HS #90 tab 03/06/20 08/26/20 Rx warfarin 10 mg tablet 10 mg PO .COMPLEX #24 tab 04/25/20 08/26/20 Rx warfarin 7.5 mg tablet 7.5 mg PO .COMPLEX #65 tab 04/25/20 08/26/20 Rx meloxicam 7.5 mg tablet 7.5 mg PO DAILY PRN #90 tab 04/28/20 08/26/20 Rx lansoprazole 30 mg capsule,delayed 30 mg PO QAM #90 cap 07/24/20 08/26/20 Rx release metoprolol tartrate 100 mg tablet 100 mg PO BID #180 tab 07/30/20 08/26/20 Rx docusate sodium [Stool Softener] 100 mg PO BID 08/14/20 08/26/20 History famotidine 40 mg PO QPM 08/14/20 08/26/20 History furosemide [Lasix] 20 mg PO QAM 08/14/20 08/26/20 History valsartan-hydrochlorothiazide 1 tab PO QAM 08/14/20 08/26/20 History Past Med/Surg History Medical History Atrial fibrillation, permanent Follows with Dr. Gama; on warfarin Woodard's esophagus Benign localized hyperplasia of prostate with urinary obstruction Benign positional vertigo Cardiomegaly DM type 2 (diabetes mellitus, type 2) diet controlled Dyslipidemia Esophageal reflux Hypertension Mild CAD Obesity CIRA on CPAP 100% compliant. Osteoarthritis Polyneuropathy Surgical History History of esophagogastroduodenoscopy (EGD) History of left hip replacement Hx of laparoscopic gastric banding S/P cardiac cath 03/2020 [place] - + stress test - no stents/angioplasty S/P colonoscopy S/P knee replacement RIGHT S/P rotator cuff repair RIGHT/LEFT; Right shoudler arthroscopy with RCR: 08/22/17: Grade view 1, MAC #4, ETT 8.0 + PNB at [facility] S/P total knee arthroplasty 04/23/19 Dr. Paco Jett- Left Family History Unknown Patient's father is Diabetes Uterine cancer Father Heart disease Lung disease Mother Hypertension Social History Smoking Status: Former smoker Number of Years Since Quit: 35; Second Hand Exposure: No; Hx Alcohol Use: Yes Alcohol type: beer Hx Substance Use: No Preferred Language: Croatian Communication Ability: Effective Ripening Room Attendant Required: No Beliefs That Will Affect Care: None marital status: Current Living Situation: Spouse Feels Safe at Home: Yes Assistive Devices: CPAP, Denture - Upper, Denture - Lower and Hearing Aid - Bilateral Review of Systems All systems reviewed & are unremarkable except as noted in HPI & below Physical Exam Constitutional: well developed and well nourished; no acute distress Eyes: PERRL, conjunctivae normal, anicteric sclerae ENMT: external ear and nose normal, oropharynx normal Neck: trachea midline, no thyromegaly Respiratory: normal respiratory effort, lungs clear to auscultation Cardiovascular: Rate/Rhythm: regular rate and + irregularly irregular Heart Sounds: no murmur Musculoskeletal: Right hip: Painful active and passive ROM. Pain with passive IR and ER of hip, pain into groin. Strength normal. Tenderness anteriorly over hip flexors. Skin: no rashes, warm and dry Neurologic: patellar DTR's 2+ bilat, sensation intact Psychiatric: A+Ox3, euthymic affect Results & Data ([facility]) Laboratory Results Lab Results 08/29/20 08/29/20 08/29/20 Range/Units 11:35 11:35 11:35 PT 25.6 H (9.0-12.0) Seconds INR 2.7 H (0.9-1.1) APTT 40.7 H (21.0-31.0) Seconds PTT Ratio 1.5 Urine Color Yellow Urine Appearance Clear (Clear) Urine pH 5.0 (4.5-7.5) Ur Specific Rice 1.023 (1.000-1.030) Urine Protein Negative (Negative) Urine Glucose (UA) Negative (Negative) Urine Ketones Negative (Negative) Urine Blood Negative (Negative) Urine Nitrite Negative (Negative) Urine Bilirubin Negative (Negative) Urine Urobilinogen Negative (Negative) Ur Leukocyte Esterase Negative (Negative) Blood Type O Positive Antibody Screen NEGATIVE Diagnostic Findings Right hip: Endstage osteoarthritis right hip with periarticular osteophyte formation and subchondral cysts acetabulum. Bone on bone femoroacetabular joint.
[~2020-09-24 09:49] MED LIST changes: -CEFAZOLIN 3000MG 72.5 ML IV SCH; +GABAPENTIN 300 MG CAP PO SCH; -GABAPENTIN 600 MG DOSE PO SCH; -LR 500ML BOLUS IV SCH; -ROPIVACAINE 0.5% HCL/PF 150 MG, BUPIVACAINE 0.5% MPF 30 ML, EPINEPHrine 30MG/30ML (OR U... INFIL SCH; +ROPIVACAINE 0.5% HCL/PF 150 MG, BUPIVACAINE 0.75% MPF 20 ML, EPINEPHrine 30MG/30ML (OR ... INFIL SCH; +ROPIVACAINE 0.5% HCL/PF 150 MG, BUPIVACAINE 0.75% MPF 20 ML, EPINEPHrine 30MG/30ML (OR ... INSTIL SCH
[2020-09-24] MEDS ORDERED: MEPERIDINE HCL 25 MG/ML CARP/VIAL IV PRN (09:52)
[2020-09-24] MEDS ORDERED: ATROPINE SULFATE 0.1 MG/ML 10ML SYR IV PRN (09:52)
[2020-09-24] MEDS ORDERED: ePHEDrine sulfate 50 MG/ML AMP IV PRN (09:52)
[2020-09-24] MEDS ORDERED: PHENYLEPHRINE 100MCG/ML 5ML SYR IV PRN (09:52)
[2020-09-24] MEDS ORDERED: LABETALOL HCL IV 5 MG/ML 20ML IV PRN (09:52)
[2020-09-24] MEDS ORDERED: fentaNYL citrate 100 MCG/2 ML VIAL IV PRN (09:52)
[2020-09-24] MEDS ORDERED: HYDROmorphone INJ 0.5 MG/0.5 ML SYR IV PRN ×2 (09:52→17:42)
[2020-09-24] MEDS ORDERED: ONDANSETRON INJ 2 MG/ML 2 ML VIAL IV PRN ×2 (09:52→17:42)
[2020-09-24] MEDS ORDERED: MIDAZOLAM HCL 1 MG/ML 2ML VIAL ONE ×2 (10:08→14:37)
[2020-09-24] MEDS ORDERED: PROPOFOL IV EMULSION 10 MG/ML 20 ML VIAL IV ONE ×6 (10:09→15:37)
[2020-09-24] MEDS ORDERED: GLYCOPYRROLATE 0.2 MG/ML VIAL ONE (10:09)
[2020-09-24] MEDS ORDERED: LIDOCAINE HCL 2% 2 ML VIAL/AMP(20MG/ML) INFIL ONE (10:09)
[2020-09-24] MEDS ORDERED: ONDANSETRON INJ 2 MG/ML 2 ML VIAL ONE (10:09)
[2020-09-24] MEDS ORDERED: KETOROLAC 30 MG/ML VIAL ONE (10:09)
[2020-09-24 10:30] LABS: Partial Thromboplastin Time 26.5 Seconds (21.0-31.0); Prothrombin Time 10.5 Seconds (9.0-12.0)
--- NOTE | 2020-09-24 12:00 | History & Physical Bridge Note ---
Date of Service September 24, 2020 History & Physical Bridge Note I have examined the patient, reviewed the History & Physical and in the interval since the performance of the History & Physical I have noted the following changes of clinical significance: no changes noted
[2020-09-24] MEDS ORDERED: ORTHO JOINT ANESTHETIC ONE (12:04)
[2020-09-24] MEDS ORDERED: BACITRACIN INJ 50,000 UNIT VIAL ONE (12:04)
[2020-09-24] MEDS ORDERED: KETAMINE 50 MG/5 ML SYRINGE ONE (12:18)
[2020-09-24] MEDS ORDERED: PHENYLEPHRINE HCL 10 MG/ML VIAL ONE (14:58)
[2020-09-24] MEDS ORDERED: fentaNYL citrate 100 MCG/2 ML VIAL ONE (15:35)
--- NOTE | 2020-09-24 16:16 | Operative Report ---
Post Operative Report Pre & Post Diagnosis Operation Date: 09/24/20 11:55 Pre-Op Diagnosis: Unilateral Primary Osteoarthritis, Right Hip, morbid obesity BMI 41.3 weight 152.9 kg Post-Op Diagnosis: Unilateral Primary Osteoarthritis, Right Hip, morbid obesity BMI 41.3 weight 152.9 kg I identified the patient and participated in the time-out.: Yes Procedure Operation Date: 09/24/20 11:55 Actual Procedures p Right Total Hip Arthroplasty(Right), increased difficulty morbid obesity BMI 41.3 weight 152.9 kg-, application superficial wound VAC Paoc Jett MD Surgeon Paco Jett MD Rounder And Backer Papi MCCORMICK Estimated Blood Loss 200 Findings Consistent with Post-Op Diagnosis Specimens Femoral head Drains 2 Hemovac, Castorena catheter Anesthesia Type MAC Spinal Regional Complications none Disposition Accompanied Patient To Recovery: No Disposition: Recovery Room Indications 65-year-old male with progressive osteoarthritis right hip with progressive osteoarthritic changes radiographically now [id number] in the superior lateral acetabulum. Patient is failed all conservative management. Patient has significant obesity but he was much heavier in the past and is lost a considerable amount of weight. Patient still over 300 pounds. Patient had a primary left total hip replacement 22 years ago and then hip replacement still doing well. Patient wants proceed with right hip replacement at this time. Patient's already had bilateral knee replacements. Description of Procedure Patient taken to the operating room and anesthetized under spinal anesthesia and sedation. Patient was placed supine on the operating table. Exam of the involved extremity demonstrated patient good range of motion considering amount of osteoarthritis radiographically. Patient had obese hip and thigh.The patient was placed on a sacral pad and the involved leg was placed on a foot bump to flex knee 90 and hip 60. A Blue-type approach was performed to the hip. A longitudinal lateral incision was made over the hip. Slightly larger than typical incision was made but it was smaller than the incision required to perform his opposite hip due to decreased size of the patient since then. The skin was incised sharply. The fat was divided down to the fascia. There was a deep layer of fat least 15 cm or more. Subcutaneous bleeders are cauterized. Trochanteric bursa was resected. There was trochanteric bursitis noted but intact abductor tendons. A split was made in the gluteus medius muscle between the anterior 40% and posterior 60%. The minimus was divided longitudinally reflected off the underlying capsule. The capsule was incised down to the hip joint. An incision was made through the gluteus medius leaving a cuff of tendon for repair on the greater trochanter. The vastus lateralis was split longitudinally for about 3 cm. A muscular capsular flap was elevated off the hip. The hip was dislocated with use of bone hook and with flexion and external rotation of the hip. The femoral neck cut was made approximately 15 mm proximal to the lesser trochanter in neutral anteversion. Head and neck fragment were removed. The femoral head demonstrated 1 area of eburnated bone grade 4 wear with femoral neck osteophytes circumferentially. A small sharp Hohmann superior tractor was impacted into the ilium, a blunt Abigail retractor was placed anteriorly a double angled inferior retractor was placed on the ischium. The acetabulum demonstrated circumferential osteophytes that would cause impingement arthritic wear mainly superior lateral acetabulum. The acetabular labrum was resected all osteophytes were resected.The soft tissue in the acetabular fossa was resected. An anterior capsular release was performed. Some the capsule was resected for exposure. The first reamer size 46 mm was used to medialize reaming to the inner table and then sequential reamers for the acetabulum were used in 2 mm increments up to a size 58. I used the Thirsty total hip arthroplasty system using a titanium Trident 2 cluster hole acetabular shell type cup. Trial reduction demonstrated a 58 millimeter cup was the appropriate size and fit. The placement of the final implant was performed after irrigating the acetabulum with antibiotic solution with pulsatile lavage. The position of the cup was approximately 15 anteversion 45 abduction. Good fixation was performed. Two 6.5 mm cancellus screws were placed in the posterior superior quadrant for further fixation through the cup. The acetabular liner was impacted into position. The 36 mm F 0 degree x-ray polyethylene insert acetabular liner was used.The Orthomix coctail injected into the capsule around the acetabular component and deeper muscles. The retractors removed and attention was taken to the femur. The femur was exposed with flexion external rotation. A box osteotome followed by Canal reamer were used followed by sequential tapered Accolade 2 broaches up to a size 7 . This had a good fit and fill. Trial reduction was performed with a 132 degree neck angle based on preoperative templating. A + 2.5 neck length gave appropriate stability soft tissue of the abductors and no shuck and stable range of motion through full flexion flexion adduction and internal rotation and extension and external rotation. This difficult to tell true leg length as his preop leg length per to be longer which was related to pelvic obliquity due to lumbar disease and not true leg length discrepancy. The trials removed and after irrigation again and the final implant was impacted which was the Accolade 2 size 7 with 132 degree neck angle. The Biolox ceramic head size 36 with +2.5 neck length was used. After final implants replaced the reduction was noted to be stable. Betadine soak was used per protocol. 2 drains were placed deep. These were brought out laterally and connected to Hemovac. The minimus was closed with interrupted [id number] #1 Vicryl sutures. Minimus was also repaired to the greater trochanter with transosseous #5 FiberWire suture using Luigi-Grayson suture technique. The medius was closed with transosseous #5 FiberWire sutures using Luigi Grayson suture technique. Lateral row soft tissue repair was performed with figure of 8 #2 FiberWire sutures. The medius split was closed with interrupted [id number] #1 Vicryl sutures. The vastus lateralis was closed with running locking #1Vicryl suture. The fascia arelis was closed with interrupted figure of eight #1 Vicryl sutures. The fat was closed with [id number] #2 Vicryl sutures on large closed needles to help close the space of the large fat layer. The superficial fat was closed into 2-0 Vicryl sutures. Skin was closed with tiffany and a superficial wound VAC was applied. There was increased difficulty and time surgery at least 35 to 40-minute increase length of surgery time due to his obesity. The patient tolerated procedure well. Papi Moreira my physician supply chain assistant assisted me in the procedure with patient positioning And draping soft tissue retraction instrument management suture management and a ssisted in the outer layer closure and application of superficial wound VAC and will participate in the postoperative care the patient. I attest to the content of the Intraoperative Record and any orders documented therein. Any exceptions are noted below.
--- NOTE | 2020-09-24 16:44 | Anesthesiology Progress Note ---
Date of Service September 24, 2020 Anesthesia Post Procedure Vital Signs Vital Signs: Temp Pulse Pulse Resp BP BP Pulse Ox 09/24/20 16:40 82 16 109/76 96 09/24/20 16:30 37.0 C 74 16 105/69 98 09/24/20 10:30 36.7 C 85 18 141/93 H 95 Pain Intensity Right Hip: Pain Intensity: 2 Transfer of Care Handoff Completed per policy Notes Mental Status: alert / awake / arousable Patient Amnestic to Procedure: Yes Nausea / Vomiting: adequately controlled Pain: adequately controlled Airway Patency, RR, SpO2: stable & adequate BP & HR: stable & adequate Hydration State: stable & adequate Neuraxial Anesthesia: was administered and sensory block is resolving Anesthetic Complications: no major complications apparent and Pt Satisfied with anesthetic care
--- NOTE | 2020-09-24 16:54 | XRay Report ---
XR hip 1V RT w pelvis CLINICAL HISTORY: Postoperative examination COMPARISON: None. DISCUSSION: There are bilateral total hip arthroplasties. A crosstable lateral view of the right reve als no evidence of dislocation. The femoral and acetabular components appear well seated. IMPRESSION: Postsurgical changes of a total right hip arthroplasty. No evidence of dislocation ACT 112: Negative or not required by law. Electronically signed by: Erich Talley M.D. 09/24/2020 4:53 PM
[2020-09-24] MEDS ORDERED: NALOXONE HCL 0.4 MG/1 ML VIAL/CARP IV PRN (17:42)
[2020-09-24] MEDS ORDERED: bisacodyL 10 MG SUPP PR PRN (17:42)
[2020-09-24] MEDS ORDERED: MAGNESIUM HYDROXIDE SUSP 30 ML UDC PO PRN (17:42)
[2020-09-24] MEDS ORDERED: METOCLOPRAMIDE HCL INJ 5 MG/ML 2 ML VIAL IV PRN (17:42)
[2020-09-24] MEDS: SODIUM CHLORIDE 0.9% 1000ML 1,000 ML IV SCH (18:02)
[2020-09-24] MEDS ORDERED: PHARMACY GLYCEMIC MGMT CONSULT PRN (19:01)
[2020-09-24] MEDS ORDERED: GLUCOSE 40% GEL 15 GM TUBE PO PRN (19:15)
[2020-09-24] MEDS ORDERED: GLUCOSE 10 TABS/TUBE PO PRN (19:15)
[2020-09-24] MEDS ORDERED: DEXTROSE 50% 50 ML SYRINGE IV PRN (19:15)
[2020-09-24] MEDS ORDERED: GLUCAGON FOR INJ 1 MG VIAL IM PRN (19:15)
[2020-09-24] MEDS ORDERED: CARBOHYDRATES FOR HYPOGLYCEMIA PO PRN (19:15)
--- NOTE | 2020-09-24 20:08 | Consultation ---
Date of Consultation September 24, 2020 Assessment & Plan (1) Primary osteoarthritis of right hip: s/p right THR today by Dr Jett. IV fluids, pain management, disposition - per ortho. (2) Status post total hip replacement, right: (3) Left foot pain: x 2 months. Patient reports this has been quite severe at times and has been limiting his mobility. This issue could make his recovery and rehab more challenging in the setting of his hip replacement. Suspect peroneal tendonitis. Can't r/o occult fracture. Other? Obtain x-rays L foot and L ankle. Voltaren gel qid to left foot. Defer additional management to ortho. (4) Morbid obesity with BMI of 40.0-44.9, adult: BMI 41 (5) Diabetes mellitus, controlled: a1c 5.4% in 08/2020. not even in pre-DM range. he will have some mild elevation in blood sugars s/p decadron perioperatively. check BSGs ac/hs. novolog sliding scale prn. (6) Mild CAD: 03/2020 heart cath with clean LAD, mild LCx, mild RCA disease. NO ischemic symptoms post-op. (7) CIRA on CPAP: may use home CPAP; order placed. (8) Hypertension: BPs are low-normal at this time. Thus, hold ARB, HCTZ and lasix. Continue metoprolol BID. Repeat labs am. Follow BPs. (9) Esophageal reflux: with Woodard's esophagus. PPI daily. (10) Atrial fibrillation, permanent: rates controlled with metoprolol. INR am. warfarin resumed post-op per home regimen. (11) DVT prophylaxis: While awaiting INR to become therapeutic w/ coumadin consider bridge with other agent. Thank you for this consult. Will follow with you. History of Present Illness Requesting Physician: Paco Jett MD Reason for Consultation: post-op medical management Attending Physician: Paco Jett MD History of Present Illness Pleasant 65yo male with h/o morbid obesity, HTN, pre-DM, chronic coumadin for permanent a.fib, CIRA on CPAP, and nonobstructive coronary artery disease who presented today for elective right THR by Dr Jett. I saw the patient post-op on the orthopedic floor and he was resting without complaints. Specifically he denied chest pain, dyspnea, nausea, abdominal pain, vomiting, or severe right hip pain. His only recent issue at home - besides chronic right hip pain - is that of left sided foot pain, present for 2 months. Patient reports pain just below the ankle on the lateral aspect of the foot. He was prescribed a course of prednisone a while back for this with some relief of pain. Hurts to walk on the foot and it is hindering his mobility. Allergies Allergy/AdvReac Type Severity Reaction Status Date / Time hydrochlorothiazide Allergy Mild Hypotension Verified 09/24/20 10:09 [From Aldoril D30] methyldopa [From Aldoril D30] Allergy Mild Hypotension Verified 09/24/20 10:09 Home Medications Medication Instructions Recorded Confirmed Type magnesium oxide 400 mg (241.3 mg 400 mg PO BID #180 tab 01/17/19 09/24/20 Rx magnesium) tablet cetirizine 10 mg PO QAM 03/20/19 09/24/20 History cholecalciferol (vitamin D3) 1,000 units PO QAM 03/20/19 09/24/20 History multivitamin [Multiple Vitamins] 1 tab PO QAM 03/20/19 09/24/20 History alfuzosin 10 mg tablet,extended 10 mg PO HS #90 tab 01/05/20 09/24/20 Rx release 24 hr gabapentin 300 mg capsule 300 mg PO TID #270 cap 01/14/20 08/26/20 Rx atorvastatin 40 mg PO HS #90 tab 03/06/20 09/24/20 Rx warfarin 10 mg tablet 10 mg PO .COMPLEX #24 tab 04/25/20 09/24/20 Rx warfarin 7.5 mg tablet 7.5 mg PO .COMPLEX #65 tab 04/25/20 09/24/20 Rx meloxicam 7.5 mg tablet 7.5 mg PO DAILY PRN #90 tab 04/28/20 09/24/20 Rx lansoprazole 30 mg capsule,delayed 30 mg PO QAM #90 cap 07/24/20 09/24/20 Rx release metoprolol tartrate 100 mg tablet 100 mg PO BID #180 tab 07/30/20 08/26/20 Rx docusate sodium [Stool Softener] 100 mg PO BID 08/14/20 09/24/20 History famotidine 40 mg PO QPM 08/14/20 08/26/20 History furosemide [Lasix] 20 mg PO QAM 08/14/20 09/24/20 History valsartan-hydrochlorothiazide 1 tab PO QAM 08/14/20 09/24/20 History tadalafil 10 mg tablet 18.5 mg PO DAILY PRN #90 tab 09/04/20 09/24/20 Rx acetaminophen [Tylenol Extra 1,500 mg PO Q6H PRN 09/24/20 09/24/20 History Strength] Patient History Medical History (Updated 09/24/20 @ 22:36 by Louis Vinson) Anemia Atrial fibrillation, permanent Follows with Dr. Gama; on warfarin Woodard's esophagus Benign localized hyperplasia of prostate with urinary obstruction Benign positional vertigo Cardiomegaly DM type 2 (diabetes mellitus, type 2) diet controlled Dyslipidemia Esophageal reflux Hypertension Mild CAD 03/2020 - heart cath by Dr Christiano Zhu; nonobstructive CAD Obesity BMI 41 CIRA on CPAP 100% compliant. Osteoarthritis Polyneuropathy Surgical History History of esophagogastroduodenoscopy (EGD) History of left hip replacement Hx of laparoscopic gastric banding S/P cardiac cath 03/2020 MD - + stress test - no stents/angioplasty S/P colonoscopy S/P knee replacement RIGHT S/P rotator cuff repair RIGHT/LEFT; Right shoudler arthroscopy with RCR: 08/22/17: Grade view 1, MAC #4, ETT 8.0 + PNB at [facility] S/P total knee arthroplasty 04/23/19 Dr. Paco Jett- Left Family History (Updated 09/24/20 @ 22:28 by Louis Vinson) Father Heart disease Lung disease Myocardial infarction Mother Hypertension Uterine cancer Other Diabetes Social History (Updated 09/24/20 @ 22:28 by Louis Vinson) Smoking Status: Former smoker Smoking End Date: 35 years ago; Number of Years Since Quit: 35; Second Hand Exposure: No; Do You Dip or Chew Tobacco: No; Tobacco Cessation Education Requested by Patient: No Hx Alcohol Use: No Hx Substance Use: No Preferred Language: Somali Communication Ability: Effective Art Director Required: No Beliefs That Will Affect Care: None marital status: Current Living Situation: Spouse Current Living Situation Comment: lives in [place] current occupational status: retired 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 How many Children do You have: 6 How many Children do You have Comment: 3 biological children; 3 step-children Feels Safe at Home: Yes Safety Concerns: Feels Safe At This Time Assistive Devices: Walker Assistive Devices Comment: upper partial Review of Systems Constitutional: no fever, no chills and no fatigue Eyes: no worsening vision Ear, Nose, Mouth, Throat: no loss of taste or smell Respiratory: no cough, no dyspnea and no dyspnea on exertion Cardiovascular: no chest pain Gastrointestinal: no abdominal pain, no nausea and no vomiting Genitourinary: no dysuria Musculoskeletal: + joint pain (left foot and right hip) Integumentary: no rash Neurologic: + paresthesia Psychiatric: no depression Endocrine: patient is diabetic Physical Exam Constitutional: well developed, well nourished and + morbidly obese; no acute distress and no altered mental status Eyes: PERRL ENMT: external ear and nose normal, oropharynx normal Neck: trachea midline, no thyromegaly Respiratory: normal respiratory effort, lungs clear to auscultation Cardiovascular: Rate/Rhythm: regular rate and + irregularly irregular Heart Sounds: normal S1 and normal S2; no murmur Vessels: posterior tibial pulses present and dorsalis pedis pulses present; no JVD Extremities: no edema Gastrointestinal (Abdomen): normal bowel sounds, soft, nontender, no hepatosplenomegaly Musculoskeletal: right hip - dressings intact, drain in place. left ankle - no tenderness over medial or lateral malleolus. Tender over expected location of peroneal tendon. No deformity. No gross swelling. No warmth. Skin: no rashes, warm and dry Neurologic: deep tendon reflexes 2+ bilaterally and moves all extremities Psychiatric: A+Ox3, euthymic affect Lymphatic: no cervical lymphadenopathy Results & Data ([facility]) Vital Signs (Past 12 Hours) Vital Signs Temp Pulse Pulse Resp BP BP Pulse Ox 09/24/20 19:40 36.7 C 79 16 111/71 95 09/24/20 18:44 36.8 C 82 16 112/73 96 09/24/20 18:16 35.9 C L 79 18 106/75 94 09/24/20 17:48 36.8 C 76 16 114/79 93 09/24/20 17:25 78 16 120/83 95 09/24/20 17:15 79 16 109/79 95 09/24/20 17:00 36.9 C 77 16 107/78 95 09/24/20 16:50 79 16 104/78 95 09/24/20 16:40 82 16 109/76 96 09/24/20 16:30 37.0 C 74 16 105/69 98 09/24/20 10:30 36.7 C 85 18 141/93 H 95 Laboratory Results Laboratory Results - last 24 hr 09/24/20 09/24/20 09/24/20 10:07 10:48 16:34 PT 10.5 INR 1.0 APTT 26.5 PTT Ratio 1.0 POC Glucose 103 H 117 H COVID-19 Eval Order SARS-CoV-2, RNA, NAAT 09/24/20 09/24/20 09/24/20 18:11 20:43 Unknown PT INR APTT PTT Ratio POC Glucose 124 H 168 H COVID-19 [facility] SARS-CoV-2, RNA, NAAT 09/24/20 Unknown PT INR APTT PTT Ratio POC Glucose COVID-19 Eval Order SARS-CoV-2, RNA, NAAT NEGATIVE recent pre-op blood work on 08/25/20 acceptable pre-op cxr noted pre-op EKG - a.fib PG Care Time/CCT Total # of Minutes Spent Total Time Spent with Patient: Total time spent is greater than 50% in coordination of care (as documented) at patient's floor/unit and/or counseling patient: Coding Level of Care Code 71373 Subseq Hosp Care Lvl 3 Diagnoses Primary osteoarthritis of right hip M16.11 Status post total hip replacement, right Z96.641 Left foot pain M79.672 Morbid obesity with BMI of 40.0-44.9, adult E66.01; Z68.41 Diabetes mellitus, controlled E11.9 Mild CAD I25.10 CIRA on CPAP G47.33; Z99.89 Hypertension I10 Esophageal reflux K21.9 Atrial fibrillation, permanent I48.2 DVT prophylaxis Z29.9
[2020-09-24] MEDS: SENNA 8.6 MG TAB PO SCH (20:23)
[2020-09-24] MEDS: ceFAZolin 2000MG 2,000 MG/15 ML SYR IV SCH (20:23)
[2020-09-24] MEDS: FAMOTIDINE 40 MG TABLET PO SCH (20:24)
[2020-09-24] MEDS: ALFUZOSIN HCL 10 MG TAB PO SCH (20:24)
[2020-09-24] MEDS: WARFARIN SOD 7.5 MG TAB PO SCH (20:24)
[2020-09-24] MEDS: GABAPENTIN 300 MG CAP PO SCH (20:24)
[2020-09-24] MEDS: METOPROLOL TARTRATE 100 MG TAB PO SCH (20:25)
[2020-09-24] MEDS: MAGNESIUM OXIDE 400 MG TAB PO SCH (20:25)
[2020-09-24] MEDS: DOCUSATE SODIUM 100 MG CAP PO SCH ×2 (20:26→20:54)
[2020-09-24] MEDS: ATORVASTATIN 40 MG TAB PO SCH (20:26)
--- NOTE | 2020-09-24 20:47 | XRay Report ---
XR foot LT min 3V routine CLINICAL HISTORY: Lateral foot and ankle pain COMPARISON: None. DISCUSSION: There are mild degenerative changes present. No acute fractures or dislocations are visua lized. There is calcaneal spurring. There are vascular calcifications present. IMPRESSION: 1. No acute fractures 2. Degenerative change 2. Calcaneal spurring ACT 112: Negative or not required by law. Electronically signed by: Erich Talley M.D. 09/24/2020 8:46 PM
--- NOTE | 2020-09-24 20:47 | XRay Report ---
XR ankle LT min 3V routine CLINICAL HISTORY: Persistent right ankle pain COMPARISON: None. DISCUSSION: No acute fractures or dislocations are visualized. There are mild degenerative changes. T here is calcaneal spurring. No destructive lesions are evident. There is a corticated ossicle adjacen t the lateral malleolar tip. This is felt to be old IMPRESSION: 1. No acute fractures 2. Mild degenerative change 2. Calcaneal spurring ACT 112: Negative or not required by law. Electronically signed by: Erich Talley M.D. 09/24/2020 8:45 PM
[2020-09-24] MEDS: INSULIN ASPART 100 UNITS/ML 3 ML PEN SC SCH ×2 (20:54→20:56)
[2020-09-24] MEDS: DICLOFENAC SOD 1% GEL 100 GM TUBE EXT SCH (20:54)
[2020-09-24] MEDS: ACETAMINOPHEN 500 MG TAB PO SCH (21:00)
[2020-09-25] MEDS: ceFAZolin 2000MG 2,000 MG/15 ML SYR IV SCH (03:34)
[2020-09-25] MEDS: oxyCODONE HCL IR 5 MG TAB (IMMEDIATE RELEASE) PO PRN ×4 (03:38→19:40)
[2020-09-25] MEDS: SODIUM CHLORIDE 0.9% 1000ML 1,000 ML IV SCH (06:00)
[2020-09-25] MEDS: ACETAMINOPHEN 500 MG TAB PO SCH ×3 (06:11→21:47)
[2020-09-25] MEDS: DOCUSATE SODIUM 100 MG CAP PO SCH ×3 (08:13→21:42)
[2020-09-25] MEDS: MULTIVITAMIN TAB PO SCH ×3 (08:14→08:18)
[2020-09-25] MEDS: METOPROLOL TARTRATE 100 MG TAB PO SCH ×2 (08:14→21:39)
[2020-09-25] MEDS: CETIRIZINE HCL 10 MG TABLET PO SCH (08:17)
[2020-09-25] MEDS: CHOLECALCIFEROL 1,000 UNITS 25 MCG TAB PO SCH (08:17)
[2020-09-25] MEDS: PANTOprazole 40 MG TAB PO SCH (08:17)
[2020-09-25] MEDS: MAGNESIUM OXIDE 400 MG TAB PO SCH ×2 (08:17→21:38)
[2020-09-25] MEDS: GABAPENTIN 300 MG CAP PO SCH ×3 (08:17→21:43)
[2020-09-25] MEDS: DICLOFENAC SOD 1% GEL 100 GM TUBE EXT SCH ×4 (08:18→21:44)
[2020-09-25 08:32] LABS: Basophils # (auto) 0.01 K/uL (0-0.2); Basophils % (auto) 0.1 %; Hematocrit (blood only) 28.4 % (42-52); Hemoglobin 9.4 g/dL (14.0-18.0); Immature Granulocytes # (auto) 0.04 K/uL (0.00-0.02); Immature Granulocytes % (auto) 0.3 %; Mean Corpuscular Hemoglobin 30.4 pg (25-34); Mean Corpuscular Hgb Conc 33.1 g/dL (32-36); Mean Corpuscular Volume 91.9 fL (80-100); Mean Platelet Volume 9.2 fL (7.4-10.4); Monocytes # (auto) 1.12 K/uL (0.11-0.59); Neutrophils % (auto) 82.6 %; Platelet Count 172 K/uL (130-400); RDW Coefficient of Variation 13.9 % (11.5-14.5); RDW Standard Deviation 46.8 fL (36.4-46.3); Red Blood Count 3.09 M/uL (4.7-6.1); White Blood Count 12.47 K/uL (4.8-10.8)
[2020-09-25 08:42] LABS: INR 1.1 (0.9-1.1); Prothrombin Time 10.9 Seconds (9.0-12.0)
[2020-09-25] MEDS ORDERED: VALSARTAN/HCTZ 160/12.5MG TAB PO SCH (09:00)
[2020-09-25] MEDS ORDERED: VALSARTAN 80 MG TAB PO SCH (09:00)
[2020-09-25] MEDS ORDERED: FUROSEMIDE 20 MG TAB PO SCH (09:00)
[2020-09-25] MEDS ORDERED: hydroCHLOROthiazide 25 MG TAB PO SCH (09:00)
[2020-09-25 09:03] LABS: Calcium 8.6 mg/dl (8.5-10.1); Creatinine Clr Calc Pharmacy 120.9 ml/min; Est GFR (African American) 95.1; Potassium 4.3 mmol/L (3.5-5.1)
[2020-09-25] MEDS: INSULIN ASPART 100 UNITS/ML 3 ML PEN SC SCH ×4 (09:09→22:20)
--- NOTE | 2020-09-25 09:43 | Pharmacy Report ---
Pharmacy Glycemic Short Note 2 - Date of Service September 25, 2020 - Glycemic Short BSG Results (Last 24 hours): 09/24/20 09/24/20 09/24/20 10:48 16:34 18:11 Glucose POC Glucose 103 H 117 H 124 H 09/24/20 09/25/20 09/25/20 20:43 08:11 08:22 Glucose 123 H POC Glucose 168 H 132 H OUTPATIENT ANTIDIABETIC REGIMEN: * Diet-controlled * HbA1c 5.4% on 08/25/20 ASSESSMENT: * 65 yo M POD 1 s/p R LILA. Dexamethasone po administered perioperatively * BSG's have ranged 103-168 mg/dL - adequate post-op control * AM fasting BSG within range - no Lantus needed * Will very slightly tighten Novolog parameters to weight-based moderate stress estimate to try for all BSG's <150 mg/dL in the immediate post-op period PLAN FOR INPATIENT GLYCEMIC CONTROL: * Basal insulin * None * Bolus insulin * NovoLog per scale ACHS or Q6hrs while NPO * Goal Range: Low 110 mg/dL - High 140 mg/dL * Correction Factor: 20 mg/dL/unit * Nutritional / Prandial insulin per carb ratio of 1 unit per 7 grams CHO consumed
--- NOTE | 2020-09-25 10:45 | Orthopedic Progress Note ---
Date of Service September 25, 2020 Assessment & Plan (1) Primary osteoarthritis of right hip: Postop day 1 right LILA. PT/OT protocols. Weightbearing as tolerated. DVT prophylaxis-warfarin, SCDs, ADRIAN hose. Pain management as written. Mild leukocytosis-likely secondary to surgical stress and or preoperative steroids. Left foot pain-patient did not relate any foot pain to me this morning however x-rays reviewed and showing no fractures and degenerative changes. I can see him later today to discuss his left foot pain. DC planning-patient is planning for outpatient PT upon discharge. Admission and Anticipated Discharge Date Admission Date: September 24, 2020 Subjective Postop day 1 Patient currently sitting up in bed getting ready to do his physical therapy session. Patient is awake and alert and in a good mood. Pain is controlled. Shortness of breath, chest pain, lightheadedness. Physical Exam Physical Exam: Prevena dressing is intact. Functioning well. He does have some slight saturation on the sponge noted but it is not exhibiting the dressing. Thigh is mildly swollen and nontender on palpation. Calves are soft nontender. Neurovascular intact. Toes are mobile. He has good dorsiflexion plantarflexion of the right foot. Results & Data ([facility]) Vital Signs (Past 12 Hours) Vital Signs Temp Pulse Resp BP BP Pulse Ox 09/25/20 07:11 36.5 C 70 16 100/64 93 09/25/20 02:38 37.2 C 88 18 103/65 97 Laboratory Results Laboratory Results WBC 12.47 K/uL (4.8-10.8) H 09/25/20 08:11 RBC 3.09 M/uL (4.7-6.1) L 09/25/20 08:11 Hgb 9.4 g/dL (14.0-18.0) L 09/25/20 08:11 Hct 28.4 % (42-52) L 09/25/20 08:11 MCV 91.9 fL (80-100) 09/25/20 08:11 MCH 30.4 pg (25-34) 09/25/20 08:11 MCHC 33.1 g/dL (32-36) 09/25/20 08:11 RDW Std Deviation 46.8 fL (36.4-46.3) H 09/25/20 08:11 RDW Coeff of Kimo 13.9 % (11.5-14.5) 09/25/20 08:11 Plt Count 172 K/uL (130-400) 09/25/20 08:11 MPV 9.2 fL (7.4-10.4) 09/25/20 08:11 Immature Gran % (Auto) 0.3 % 09/25/20 08:11 Neut % (Auto) 82.6 % 09/25/20 08:11 Lymph % (Auto) 8.0 % 09/25/20 08:11 [place] % (Auto) 9.0 % 09/25/20 08:11 Eos % (Auto) 0.0 % 09/25/20 08:11 Baso % (Auto) 0.1 % 09/25/20 08:11 Neut # (Auto) 10.30 K/uL (1.4-6.5) H 09/25/20 08:11 Lymph # (Auto) 1.00 K/uL (1.2-3.4) L 09/25/20 08:11 [place] # (Auto) 1.12 K/uL (0.11-0.59) H 09/25/20 08:11 Eos # (Auto) 0.00 K/uL (0-0.5) 09/25/20 08:11 Baso # (Auto) 0.01 K/uL (0-0.2) 09/25/20 08:11 Immature Gran # (Auto) 0.04 K/uL (0.00-0.02) H 09/25/20 08:11 PT 10.9 Seconds (9.0-12.0) 09/25/20 08:11 INR 1.1 (0.9-1.1) 09/25/20 08:11 APTT 26.5 Seconds (21.0-31.0) 09/24/20 10:07 PTT Ratio 1.0 09/24/20 10:07 Sodium 138 mmol/L (136-145) 09/25/20 08:11 Potassium 4.3 mmol/L (3.5-5.1) 09/25/20 08:11 Chloride 108 mmol/L (98-107) H 09/25/20 08:11 Carbon Dioxide 25 mmol/L (21-32) 09/25/20 08:11 Anion Gap 6.0 (3-11) 09/25/20 08:11 BUN 26 mg/dl (7-18) H 09/25/20 08:11 Creatinine 0.96 mg/dl (0.6-1.4) 09/25/20 08:11 Est Cr Clr Drug Dosing 120.9 ml/min 09/25/20 08:11 Est GFR ( Amer) 95.1 09/25/20 08:11 Est GFR (Non-Af Amer) 82.0 09/25/20 08:11 BUN/Creatinine Ratio 27.0 (10-20) H 09/25/20 08:11 Glucose 123 mg/dl (70-99) H 09/25/20 08:11 POC Glucose 132 mg/dl (70-99) H 09/25/20 08:22 Calcium 8.6 mg/dl (8.5-10.1) 09/25/20 08:11 Magnesium 2.0 mg/dl (1.8-2.4) 09/25/20 08:11 Urine Color Yellow 08/29/20 11:35 Urine Appearance Clear (Clear) 08/29/20 11:35 Urine pH 5.0 (4.5-7.5) 08/29/20 11:35 Ur Specific [place] 1.023 (1.000-1.030) 08/29/20 11:35 Urine Protein Negative (Negative) 08/29/20 11:35 Urine Glucose (UA) Negative (Negative) 08/29/20 11:35 Urine Ketones Negative (Negative) 08/29/20 11:35 Urine Blood Negative (Negative) 08/29/20 11:35 Urine Nitrite Negative (Negative) 08/29/20 11:35 Urine Bilirubin Negative (Negative) 08/29/20 11:35 Urine Urobilinogen Negative (Negative) 08/29/20 11:35 Ur Leukocyte Esterase Negative (Negative) 08/29/20 11:35 COVID-19 Eval Order Covid19 [facility] 09/24/20 Unknown SARS-CoV-2, RNA, NAAT NEGATIVE (NEGATIVE) 09/24/20 Unknown Blood Type O Positive 08/29/20 11:35 Antibody Screen NEGATIVE 08/29/20 11:35 Impressions Hip/Pelvis X-Ray 09/24/20 16:38 XR hip 1V RT w pelvis CLINICAL HISTORY: Postoperative examination COMPARISON: None. DISCUSSION: There are bilateral total hip arthroplasties. A crosstable lateral view of the right reveals no evidence of dislocation. The femoral and acetabular components appear well seated. IMPRESSION: Postsurgical changes of a total right hip arthroplasty. No evidence of dislocation ACT 112: Negative or not required by law. Electronically signed by: Erich Talley M.D. 09/24/2020 4:53 PM Ankle X-Ray 09/24/20 20:06 XR ankle LT min 3V routine CLINICAL HISTORY: Persistent right ankle pain COMPARISON: None. DISCUSSION: No acute fractures or dislocations are visualized. There are mild degenerative changes. There is calcaneal spurring. No destructive lesions are evident. There is a corticated ossicle adjacent the lateral malleolar tip. This is felt to be old IMPRESSION: 1. No acute fractures 2. Mild degenerative change 2. Calcaneal spurring ACT 112: Negative or not required by law. Electronically signed by: Erich Talley M.D. 09/24/2020 8:45 PM Foot X-Ray 09/24/20 20:06 XR foot LT min 3V routine CLINICAL HISTORY: Lateral foot and ankle pain COMPARISON: None. DISCUSSION: There are mild degenerative changes present. No acute fractures or dislocations are visualized. There is calcaneal spurring. There are vascular calcifications present. IMPRESSION: 1. No acute fractures 2. Degenerative change 2. Calcaneal spurring ACT 112: Negative or not required by law. Electronically signed by: Erich Talley M.D. 09/24/2020 8:46 PM
[2020-09-25] MEDS: FERROUS SULFATE 325 MG TAB PO SCH ×2 (10:52→21:38)
[2020-09-25] MEDS: WARFARIN SOD 7.5 MG TAB PO SCH (15:15)
[2020-09-25] MEDS: KETOROLAC TROMETHAMINE 15 MG/ML VIAL IV SCH ×2 (15:19→21:46)
[2020-09-25] MEDS: FAMOTIDINE 40 MG TABLET PO SCH (21:39)
[2020-09-25] MEDS: SENNA 8.6 MG TAB PO SCH (21:40)
[2020-09-25] MEDS: ALFUZOSIN HCL 10 MG TAB PO SCH (21:41)
[2020-09-25] MEDS: ATORVASTATIN 40 MG TAB PO SCH (21:42)
--- NOTE | 2020-09-25 22:25 | Hospitalist Progress Note ---
Date of Service September 25, 2020 Assessment & Plan (1) Primary osteoarthritis of right hip: POD #1 s/p right THR by Dr Jett. Stable from ortho standpoint. (2) Status post total hip replacement, right: POD #1 s/p right THR. Acute blood loss anemia. Start Fe supplementation. (3) Acute blood loss anemia: Moderate. Start ferrous sulfate 325mg BID. CBC in am. 2nd to perioperative blood loss, some dilutional effect, etc. (4) Left foot pain: x 2 months. Peroneal tendonitis suspected - see below. x-rays left foot and left ankle neg for fracture, CPPD changes, etc. (5) Peroneal tendonitis: Left. voltaren gel qid. defer additional management to ortho. (6) Morbid obesity with BMI of 40.0-44.9, adult: BMI 41 (7) Diabetes mellitus, controlled: a1c 5.4% in 08/2020. not even in pre-DM range. regardless he is well controlled at this time. novolog prn. (8) Mild CAD: 03/2020 heart cath with clean LAD, mild LCx, mild RCA disease. NO ischemic symptoms post-op. (9) CIRA on CPAP: home CPAP (10) Hypertension: BPs are low-normal or low - likely due to acute blood loss anemia. Thus, continue to hold ARB, HCTZ and lasix. Continue metoprolol BID but this may need lower dose as well. Repeat labs am. Follow BPs. (11) Esophageal reflux: with Woodard's esophagus. PPI daily. (12) Atrial fibrillation, permanent: rates controlled with metoprolol. INR am. warfarin resumed post-op per home regimen. (13) DVT prophylaxis: While awaiting INR to become therapeutic w/ coumadin consider bridge with other agent. will continue to follow. Admission and Anticipated Discharge Date Admission Date: September 24, 2020 Subjective patient feeling good today minimal left foot pain - voltaren gel helping no cp no dyspnea no abd pain mild right hip pain worked w/ PT today - did ok eating well minimal flatus no stool Review of Systems Constitutional: no fever Respiratory: no cough, no dyspnea and no dyspnea on exertion Cardiovascular: no chest pain Gastrointestinal: no abdominal pain, no nausea and no vomiting Physical Exam Constitutional: well developed, well nourished and + morbidly obese; no acute distress and no altered mental status ENMT: external ear and nose normal, oropharynx normal Respiratory: normal respiratory effort, lungs clear to auscultation Cardiovascular: Rate/Rhythm: regular rate and + irregularly irregular Heart Sounds: normal S1 and normal S2; no murmur Vessels: posterior tibial pulses present and dorsalis pedis pulses present; no JVD Extremities: + edema (1+ b/l ) Gastrointestinal (Abdomen): normal bowel sounds, soft, nontender, no hepatosplenomegaly Skin: + pallor Psychiatric: A+Ox3, euthymic affect Results & Data Results & Data ([facility]) Vital Signs (Past 12 Hours) Vital Signs Temp Pulse Pulse Resp BP BP Pulse Ox 09/25/20 22:00 36.9 C 86 18 108/70 91 09/25/20 21:33 106 H 106/69 09/25/20 15:09 36.5 C 88 16 129/83 96 Laboratory Results Laboratory Results - last 24 hr 09/25/20 09/25/20 09/25/20 08:11 08:11 08:11 WBC 12.47 H RBC 3.09 L Hgb 9.4 L Hct 28.4 L MCV 91.9 MCH 30.4 MCHC 33.1 RDW Std Deviation 46.8 H RDW Coeff of Kimo 13.9 Plt Count 172 MPV 9.2 Immature Gran % (Auto) 0.3 Neut % (Auto) 82.6 Lymph % (Auto) 8.0 [place] % (Auto) 9.0 Eos % (Auto) 0.0 Baso % (Auto) 0.1 Neut # (Auto) 10.30 H Lymph # (Auto) 1.00 L [place] # (Auto) 1.12 H Eos # (Auto) 0.00 Baso # (Auto) 0.01 Immature Gran # (Auto) 0.04 H PT 10.9 INR 1.1 Sodium 138 Potassium 4.3 Chloride 108 H Carbon Dioxide 25 Anion Gap 6.0 BUN 26 H Creatinine 0.96 Est Cr Clr Drug Dosing 120.9 Est GFR ( Amer) 95.1 Est GFR (Non-Af Amer) 82.0 BUN/Creatinine Ratio 27.0 H Glucose 123 H POC Glucose Calcium 8.6 Magnesium 2.0 09/25/20 09/25/20 09/25/20 08:22 12:11 17:33 WBC RBC Hgb Hct MCV MCH MCHC RDW Std Deviation RDW Coeff of Kimo Plt Count MPV Immature Gran % (Auto) Neut % (Auto) Lymph % (Auto) [place] % (Auto) Eos % (Auto) Baso % (Auto) Neut # (Auto) Lymph # (Auto) [place] # (Auto) Eos # (Auto) Baso # (Auto) Immature Gran # (Auto) PT INR Sodium Potassium Chloride Carbon Dioxide Anion Gap BUN Creatinine Est Cr Clr Drug Dosing Est GFR ( Amer) Est GFR (Non-Af Amer) BUN/Creatinine Ratio Glucose POC Glucose 132 H 121 H 99 Calcium Magnesium 09/25/20 21:00 WBC RBC Hgb Hct MCV MCH MCHC RDW Std Deviation RDW Coeff of Kimo Plt Count MPV Immature Gran % (Auto) Neut % (Auto) Lymph % (Auto) [place] % (Auto) Eos % (Auto) Baso % (Auto) Neut # (Auto) Lymph # (Auto) [place] # (Auto) Eos # (Auto) Baso # (Auto) Immature Gran # (Auto) PT INR Sodium Potassium Chloride Carbon Dioxide Anion Gap BUN Creatinine Est Cr Clr Drug Dosing Est GFR ( Amer) Est GFR (Non-Af Amer) BUN/Creatinine Ratio Glucose POC Glucose 112 H Calcium Magnesium PG Care Time/CCT Total # of Minutes Spent Total Time Spent with Patient: Total time spent is greater than 50% in coordination of care (as documented) at patient's floor/unit and/or counseling patient: Coding Level of Care Code 37280 Subseq Obs Care Lvl 3 Diagnoses Primary osteoarthritis of right hip M16.11 Status post total hip replacement, right Z96.641 Acute blood loss anemia D62 Left foot pain M79.672 Peroneal tendonitis M76.70 Morbid obesity with BMI of 40.0-44.9, adult E66.01; Z68.41 Diabetes mellitus, controlled E11.9 Mild CAD I25.10 CIRA on CPAP G47.33; Z99.89 Hypertension I10 Esophageal reflux K21.9 Atrial fibrillation, permanent I48.2 DVT prophylaxis Z29.9
[2020-09-26] MEDS: KETOROLAC TROMETHAMINE 15 MG/ML VIAL IV SCH ×2 (03:32→08:37)
[2020-09-26] MEDS: ACETAMINOPHEN 500 MG TAB PO SCH ×3 (06:01→21:44)
[2020-09-26 06:20] LABS: Basophils # (auto) 0.02 K/uL (0-0.2); Basophils % (auto) 0.2 %; Eosinophils # (auto) 0.29 K/uL (0-0.5); Eosinophils % (auto) 3.2 %; Hematocrit (blood only) 23.4 % (42-52); Immature Granulocytes # (auto) 0.01 K/uL (0.00-0.02); Immature Granulocytes % (auto) 0.1 %; Lymphocytes # (auto) 1.44 K/uL (1.2-3.4); Lymphocytes % (auto) 15.8 %; Mean Corpuscular Hemoglobin 31.3 pg (25-34); Mean Corpuscular Hgb Conc 34.2 g/dL (32-36); Mean Corpuscular Volume 91.4 fL (80-100); Mean Platelet Volume 9.5 fL (7.4-10.4); Monocytes # (auto) 1.18 K/uL (0.11-0.59); Neutrophils # (auto) 6.17 K/uL (1.4-6.5); Neutrophils % (auto) 67.7 %; Platelet Count 146 K/uL (130-400); RDW Coefficient of Variation 14.1 % (11.5-14.5); RDW Standard Deviation 47.1 fL (36.4-46.3); Red Blood Count 2.56 M/uL (4.7-6.1); White Blood Count 9.11 K/uL (4.8-10.8)
[2020-09-26 06:37] LABS: INR 1.2 (0.9-1.1); Prothrombin Time 11.7 Seconds (9.0-12.0)
[2020-09-26 06:57] LABS: BUN Creatinine Ratio 30.7 (10-20); Creatinine Clr Calc Pharmacy 109.5 ml/min; Est GFR (African American) 84.3; Est GFR (Non-African American) 72.8; Potassium 4.2 mmol/L (3.5-5.1)
--- NOTE | 2020-09-26 07:14 | Orthopedic Progress Note ---
Date of Service September 26, 2020 Assessment & Plan (1) Primary osteoarthritis of right hip: Postop day 2 right LILA. PT/OT protocols. Weightbearing as tolerated. DVT prophylaxis-warfarin, SCDs, ADRIAN hose. Pain management as written. Mild leukocytosis-likely secondary to surgical stress and or preoperative steroids. resolved Acute blood loss anemia. Hgb 8 today from 12.8 preop likely due to surgical loss and dilutional effect. Will recheck this afternoon. If stable can consider discharge. Left foot pain-Started on Toradol yesterday. Is improved. Will monitor as an outpatient. DC planning-patient is planning for outpatient PT upon discharge. Plan on discharge today if hemoglobin remains stable. Admission and Anticipated Discharge Date Admission Date: September 24, 2020 Subjective Postop day 2 Patient laying in bed comfortably. Pain well controlled. No current complaints. No chest pain, sob, dizziness, light headedness, n/v/d. Left ankle pain improved. Review of Systems Constitutional: as per Subjective / HPI Physical Exam Physical Exam: Right hip Prevena intact, some drainage into foam, only mild amount of drainage in canister. Hemovac removed, dressing is c/d/i. No calf tenderness, calves soft. Good dorsiflexion, toes mobile. Distally n/v status and sensation intact. No tenderness left ankle this AM. ROM pain free at this time. Constitutional: well developed and well nourished; no acute distress Results & Data ([facility]) Vital Signs (Past 12 Hours) Vital Signs Temp Pulse Pulse Resp BP BP Pulse Ox 09/25/20 22:00 36.9 C 86 18 108/70 91 09/25/20 21:33 106 H 106/69
[2020-09-26] MEDS: DOCUSATE SODIUM 100 MG CAP PO SCH ×2 (08:33→21:44)
[2020-09-26] MEDS: FERROUS SULFATE 325 MG TAB PO SCH ×2 (08:33→21:45)
[2020-09-26] MEDS: MAGNESIUM OXIDE 400 MG TAB PO SCH ×2 (08:34→21:43)
[2020-09-26] MEDS: GABAPENTIN 300 MG CAP PO SCH ×3 (08:34→21:44)
[2020-09-26] MEDS: CETIRIZINE HCL 10 MG TABLET PO SCH (08:35)
[2020-09-26] MEDS: PANTOprazole 40 MG TAB PO SCH (08:35)
[2020-09-26] MEDS: MULTIVITAMIN TAB PO SCH ×2 (08:35→09:02)
[2020-09-26] MEDS: CHOLECALCIFEROL 1,000 UNITS 25 MCG TAB PO SCH (08:36)
[2020-09-26] MEDS: oxyCODONE HCL IR 5 MG TAB (IMMEDIATE RELEASE) PO PRN ×3 (08:37→21:55)
[2020-09-26] MEDS: INSULIN ASPART 100 UNITS/ML 3 ML PEN SC SCH ×4 (08:38→21:47)
[2020-09-26] MEDS: DICLOFENAC SOD 1% GEL 100 GM TUBE EXT SCH ×4 (08:40→21:45)
[2020-09-26] MEDS: METOPROLOL TARTRATE 25 MG TAB PO SCH ×2 (09:02→21:43)
[2020-09-26 13:06] LABS: Hematocrit (blood only) 25.1 % (42-52); Hemoglobin 8.5 g/dL (14.0-18.0)
[2020-09-26] MEDS ORDERED: SODIUM CHLORIDE 0.9% 250 ML IV PRN (13:50)
--- NOTE | 2020-09-26 14:04 | Pharmacy Report ---
Pharmacy Glycemic Sign Off Nt - Date of Service September 26, 2020 - Assessment & Plan ASSESSMENT: * Pharmacy consulted for glycemic management. Patient has not required any basal and is only requiring low amounts of Novolog at this time, at a stable regimen. BSG's ranging 99-126 mg/dL over the last 24 hours. PLAN FOR INPATIENT GLYCEMIC CONTROL: No changes needed to current regimen. * Continue NovoLog per scale ACHS/Q6hrs while NPO * Goal range = 110 140 mg/dl * CF = 20 mg/dl/unit * CR = 1 unit for ever 8 g CHO consumed * Pharmacy is signing off of glycemic consult and will no longer be making adjustments to inpatient regimen. Please feel free to re-consult if needed. Thank you.
[2020-09-26] MEDS ORDERED: WARFARIN SOD 10 MG TAB PO SCH (16:00)
[2020-09-26] MEDS: SENNA 8.6 MG TAB PO SCH (21:43)
[2020-09-26] MEDS: ATORVASTATIN 40 MG TAB PO SCH (21:44)
[2020-09-26] MEDS: FAMOTIDINE 40 MG TABLET PO SCH (21:45)
[2020-09-26] MEDS: ALFUZOSIN HCL 10 MG TAB PO SCH (21:45)
--- NOTE | 2020-09-26 23:02 | Hospitalist Progress Note ---
Date of Service September 26, 2020 Assessment & Plan (1) Primary osteoarthritis of right hip: POD #2 s/p right THR by Dr Jett. Course complicated by acute blood loss anemia with resulting low-normal and low BPs/hypotension. Agree with 1 unit PRBCs given low BPs. Care d/w Cayetano MCCORMICK. (2) Status post total hip replacement, right: POD #2 s/p right THR. Acute blood loss anemia - continue Fe supplementation. Agree with 1 unit PRBCs today. Repeat CBC. (3) Acute blood loss anemia: About 4 gm loss. Agree with 1 unit PRBCs given his low BPs. Continue ferrous sulfate 325mg BID. CBC in am. 2nd to perioperative blood loss, some dilutional effect, etc. To be complete check b12, folate, and ferritin in am. (4) Left foot pain: x 2 months. Peroneal tendonitis suspected - see below. x-rays left foot and left ankle neg for fracture, CPPD changes, etc. (5) Peroneal tendonitis: Left. voltaren gel qid. toradol. IMPROVED. (6) Morbid obesity with BMI of 40.0-44.9, adult: BMI 41 (7) Diabetes mellitus, controlled: a1c 5.4% in 08/2020. not even in pre-DM range. regardless he is well controlled at this time. novolog prn. (8) Mild CAD: 03/2020 heart cath with clean LAD, mild LCx, mild RCA disease. continues to have no cardiopulmonary symptoms. (9) CIRA on CPAP: home CPAP (10) Hypertension: BPs are low-normal or low due to acute blood loss anemia. Continue to hold ARB, HCTZ and lasix. Continue metoprolol BID but lower dose to 75mg BID. Repeat labs am. Follow BPs. Tx 1 unit PRBCs today. (11) Esophageal reflux: with Woodard's esophagus. PPI daily. (12) Atrial fibrillation, permanent: rates controlled with metoprolol. INR am. warfarin per home regimen. (13) DVT prophylaxis: coumadin care d/w orthopedics Admission and Anticipated Discharge Date Admission Date: September 24, 2020 Subjective patient with scant amount of dizziness with sitting/standing BPs this am low or low-normal denies syncope eating ok no BM, but passing plenty of flatus no nausea/emesis/abd pain right hip pain and left foot pain - controlled Review of Systems Constitutional: no fatigue and no anorexia Respiratory: no cough, no dyspnea and no dyspnea on exertion Cardiovascular: no chest pain Physical Exam Constitutional: well developed, well nourished and + morbidly obese; no acute distress and no altered mental status ENMT: external ear and nose normal, oropharynx normal Respiratory: normal respiratory effort, lungs clear to auscultation Cardiovascular: Rate/Rhythm: regular rate and + irregularly irregular Heart Sounds: normal S1 and normal S2; no murmur Vessels: posterior tibial pulses present and dorsalis pedis pulses present; no JVD Extremities: + edema (1+ b/l ) Gastrointestinal (Abdomen): normal bowel sounds, soft, nontender, no hepatosplenomegaly Musculoskeletal: left foot - nontender to palpation today Skin: + pallor Psychiatric: A+Ox3, euthymic affect Results & Data Results & Data ([facility]) Vital Signs (Past 12 Hours) Vital Signs Temp Pulse Pulse Resp BP BP Pulse Ox 09/26/20 21:41 90 105/66 96 09/26/20 17:41 36.9 C 90 18 111/74 94 09/26/20 16:41 37.0 C 101 H 18 98/58 L 93 09/26/20 16:11 36.7 C 85 18 104/68 92 09/26/20 15:54 36.8 C 86 18 95/59 L 94 09/26/20 15:39 36.6 C 80 18 103/69 94 09/26/20 15:10 36.9 C 97 H 18 130/98 97 Laboratory Results Laboratory Results - last 24 hr 09/24/20 09/26/20 09/26/20 10:07 05:35 05:35 WBC 9.11 RBC 2.56 L Hgb 8.0 L Hct 23.4 L MCV 91.4 MCH 31.3 MCHC 34.2 RDW Std Deviation 47.1 H RDW Coeff of Kimo 14.1 Plt Count 146 MPV 9.5 Immature Gran % (Auto) 0.1 Neut % (Auto) 67.7 Lymph % (Auto) 15.8 [place] % (Auto) 13.0 Eos % (Auto) 3.2 Baso % (Auto) 0.2 Neut # (Auto) 6.17 Lymph # (Auto) 1.44 [place] # (Auto) 1.18 H Eos # (Auto) 0.29 Baso # (Auto) 0.02 Immature Gran # (Auto) 0.01 PT 11.7 INR 1.2 H Sodium Potassium Chloride Carbon Dioxide Anion Gap BUN Creatinine Est Cr Clr Drug Dosing Est GFR ( Amer) Est GFR (Non-Af Amer) BUN/Creatinine Ratio Glucose POC Glucose Calcium Blood Type O Positive Blood Type Recheck Antibody Screen NEGATIVE Crossmatch See Detail 09/26/20 09/26/20 09/26/20 05:35 05:35 08:23 WBC RBC Hgb Hct MCV MCH MCHC RDW Std Deviation RDW Coeff of Kimo Plt Count MPV Immature Gran % (Auto) Neut % (Auto) Lymph % (Auto) [place] % (Auto) Eos % (Auto) Baso % (Auto) Neut # (Auto) Lymph # (Auto) [place] # (Auto) Eos # (Auto) Baso # (Auto) Immature Gran # (Auto) PT INR Sodium 139 Potassium 4.2 Chloride 107 Carbon Dioxide 27 Anion Gap 5.0 BUN 33 H Creatinine 1.06 Est Cr Clr Drug Dosing 109.5 Est GFR ( Amer) 84.3 Est GFR (Non-Af Amer) 72.8 BUN/Creatinine Ratio 30.7 H Glucose 101 H POC Glucose 109 H Calcium 8.0 L Blood Type Blood Type Recheck O Positive Antibody Screen Crossmatch 09/26/20 09/26/20 09/26/20 12:14 12:53 17:06 WBC RBC Hgb 8.5 L Hct 25.1 L MCV MCH MCHC RDW Std Deviation RDW Coeff of Kimo Plt Count MPV Immature Gran % (Auto) Neut % (Auto) Lymph % (Auto) [place] % (Auto) Eos % (Auto) Baso % (Auto) Neut # (Auto) Lymph # (Auto) [place] # (Auto) Eos # (Auto) Baso # (Auto) Immature Gran # (Auto) PT INR Sodium Potassium Chloride Carbon Dioxide Anion Gap BUN Creatinine Est Cr Clr Drug Dosing Est GFR ( Amer) Est GFR (Non-Af Amer) BUN/Creatinine Ratio Glucose POC Glucose 126 H 97 Calcium Blood Type Blood Type Recheck Antibody Screen Crossmatch 09/26/20 21:12 WBC RBC Hgb Hct MCV MCH MCHC RDW Std Deviation RDW Coeff of Kimo Plt Count MPV Immature Gran % (Auto) Neut % (Auto) Lymph % (Auto) [place] % (Auto) Eos % (Auto) Baso % (Auto) Neut # (Auto) Lymph # (Auto) [place] # (Auto) Eos # (Auto) Baso # (Auto) Immature Gran # (Auto) PT INR Sodium Potassium Chloride Carbon Dioxide Anion Gap BUN Creatinine Est Cr Clr Drug Dosing Est GFR ( Amer) Est GFR (Non-Af Amer) BUN/Creatinine Ratio Glucose POC Glucose 99 Calcium Blood Type Blood Type Recheck Antibody Screen Crossmatch PG Care Time/CCT Total # of Minutes Spent Total Time Spent with Patient: Total time spent is greater than 50% in coordination of care (as documented) at patient's floor/unit and/or counseling patient: Coding Level of Care Code 98031 Subseq Obs Care Lvl 2 Diagnoses Primary osteoarthritis of right hip M16.11 Status post total hip replacement, right Z96.641 Acute blood loss anemia D62 Left foot pain M79.672 Peroneal tendonitis M76.70 Morbid obesity with BMI of 40.0-44.9, adult E66.01; Z68.41 Diabetes mellitus, controlled E11.9 Mild CAD I25.10 CIRA on CPAP G47.33; Z99.89 Hypertension I10 Esophageal reflux K21.9 Atrial fibrillation, permanent I48.2 DVT prophylaxis Z29.9
[2020-09-27] MEDS: oxyCODONE HCL IR 5 MG TAB (IMMEDIATE RELEASE) PO PRN ×4 (02:28→22:40)
[2020-09-27] MEDS: ACETAMINOPHEN 500 MG TAB PO SCH ×3 (05:30→22:40)
[2020-09-27 06:53] LABS: INR 1.4 (0.9-1.1); Prothrombin Time 13.5 Seconds (9.0-12.0)
[2020-09-27 06:55] LABS: Hematocrit (blood only) 24.1 % (42-52); Hemoglobin 8.2 g/dL (14.0-18.0); Mean Corpuscular Hemoglobin 31.1 pg (25-34); Mean Corpuscular Volume 91.3 fL (80-100); Mean Platelet Volume 9.3 fL (7.4-10.4); Platelet Count 147 K/uL (130-400); RDW Coefficient of Variation 14.1 % (11.5-14.5); RDW Standard Deviation 47.1 fL (36.4-46.3); Red Blood Count 2.64 M/uL (4.7-6.1); White Blood Count 8.03 K/uL (4.8-10.8)
[2020-09-27 07:36] LABS: BUN Creatinine Ratio 26.4 (10-20); Calcium 8.2 mg/dl (8.5-10.1); Creatinine Clr Calc Pharmacy 122.1 ml/min; Est GFR (African American) 96.3; Est GFR (Non-African American) 83.1; Potassium 4.6 mmol/L (3.5-5.1)
[2020-09-27 07:40] LABS: Ferritin 480.6 ng/ml (8-388)
[2020-09-27 07:47] LABS: Folate (Folic Acid) 19.3 ng/ml (>5.38)
[2020-09-27] MEDS: FERROUS SULFATE 325 MG TAB PO SCH ×2 (08:43→20:11)
[2020-09-27] MEDS: CHOLECALCIFEROL 1,000 UNITS 25 MCG TAB PO SCH (08:44)
[2020-09-27] MEDS: GABAPENTIN 300 MG CAP PO SCH ×3 (08:44→20:12)
[2020-09-27] MEDS: MULTIVITAMIN TAB PO SCH ×2 (08:44→08:58)
[2020-09-27] MEDS: PANTOprazole 40 MG TAB PO SCH (08:45)
[2020-09-27] MEDS: MAGNESIUM OXIDE 400 MG TAB PO SCH ×2 (08:47→20:10)
[2020-09-27] MEDS: METOPROLOL TARTRATE 25 MG TAB PO SCH ×2 (08:47→20:11)
[2020-09-27] MEDS: DICLOFENAC SOD 1% GEL 100 GM TUBE EXT SCH ×4 (08:48→20:12)
[2020-09-27] MEDS: INSULIN ASPART 100 UNITS/ML 3 ML PEN SC SCH ×4 (08:50→21:47)
[2020-09-27] MEDS: DOCUSATE SODIUM 100 MG CAP PO SCH ×2 (08:57→20:11)
[2020-09-27] MEDS: CETIRIZINE HCL 10 MG TABLET PO SCH (08:57)
--- NOTE | 2020-09-27 09:02 | Orthopedic Progress Note ---
Date of Service September 27, 2020 Assessment & Plan (1) Status post total hip replacement, right: Admission and Anticipated Discharge Date Admission Date: 65 yo male stable POD #3 s/p right LILA, post op anemia 1. Med management 2. DVT prophylaxis- warfarin, SCDs 3. PT/OT 4. D/C planning- home w/ HH Subjective Pt resting in bed, pain controlled, denies complaints Physical Exam Physical Exam: Toes mobile, N/V/I, Prevena dressing in place Results & Data ([facility]) Vital Signs (Past 12 Hours) Vital Signs Temp Pulse Resp BP Pulse Ox 09/27/20 07:30 36.6 C 89 16 107/72 95 09/26/20 23:33 37.0 C 91 H 18 121/72 95 09/26/20 21:41 90 105/66 96 Laboratory Results 09/27/20 09/27/20 09/27/20 Range/Units 08:41 06:21 06:21 WBC (4.8-10.8) K/uL RBC (4.7-6.1) M/uL Hgb (14.0-18.0) g/dL Hct (42-52) % MCV (80-100) fL MCH (25-34) pg MCHC (32-36) g/dL RDW Std Deviation (36.4-46.3) fL RDW Coeff of Kimo (11.5-14.5) % Plt Count (130-400) K/uL MPV (7.4-10.4) fL PT (9.0-12.0) Seconds INR (0.9-1.1) Sodium 138 (136-145) mmol/L Potassium 4.6 (3.5-5.1) mmol/L Chloride 107 (98-107) mmol/L Carbon Dioxide 29 (21-32) mmol/L Anion Gap 2.0 L (3-11) BUN 25 H (7-18) mg/dl Creatinine 0.95 (0.6-1.4) mg/dl Est Cr Clr Drug Dosing 122.1 ml/min Est GFR ( Amer) 96.3 Est GFR (Non-Af Amer) 83.1 BUN/Creatinine Ratio 26.4 H (10-20) Glucose 92 (70-99) mg/dl POC Glucose 106 H (70-99) mg/dl Calcium 8.2 L (8.5-10.1) mg/dl Ferritin 480.6 H (8-388) ng/ml Vitamin B12 1351 H (193-986) pg/ml Folate 19.30 (>5.38) ng/ml Blood Type Blood Type Recheck Antibody Screen Crossmatch 09/27/20 09/27/20 09/26/20 Range/Units 06:21 06:21 21:12 WBC 8.03 (4.8-10.8) K/uL RBC 2.64 L (4.7-6.1) M/uL Hgb 8.2 L (14.0-18.0) g/dL Hct 24.1 L (42-52) % MCV 91.3 (80-100) fL MCH 31.1 (25-34) pg MCHC 34.0 (32-36) g/dL RDW Std Deviation 47.1 H (36.4-46.3) fL RDW Coeff of Kimo 14.1 (11.5-14.5) % Plt Count 147 (130-400) K/uL MPV 9.3 (7.4-10.4) fL PT 13.5 H (9.0-12.0) Seconds INR 1.4 H (0.9-1.1) Sodium (136-145) mmol/L Potassium (3.5-5.1) mmol/L Chloride (98-107) mmol/L Carbon Dioxide (21-32) mmol/L Anion Gap (3-11) BUN (7-18) mg/dl Creatinine (0.6-1.4) mg/dl Est Cr Clr Drug Dosing ml/min Est GFR ( Amer) Est GFR (Non-Af Amer) BUN/Creatinine Ratio (10-20) Glucose (70-99) mg/dl POC Glucose 99 (70-99) mg/dl Calcium (8.5-10.1) mg/dl Ferritin (8-388) ng/ml Vitamin B12 (193-986) pg/ml Folate (>5.38) ng/ml Blood Type Blood Type Recheck Antibody Screen Crossmatch 09/26/20 09/26/20 09/26/20 Range/Units 17:06 12:53 12:14 WBC (4.8-10.8) K/uL RBC (4.7-6.1) M/uL Hgb 8.5 L (14.0-18.0) g/dL Hct 25.1 L (42-52) % MCV (80-100) fL MCH (25-34) pg MCHC (32-36) g/dL RDW Std Deviation (36.4-46.3) fL RDW Coeff of Kimo (11.5-14.5) % Plt Count (130-400) K/uL MPV (7.4-10.4) fL PT (9.0-12.0) Seconds INR (0.9-1.1) Sodium (136-145) mmol/L Potassium (3.5-5.1) mmol/L Chloride (98-107) mmol/L Carbon Dioxide (21-32) mmol/L Anion Gap (3-11) BUN (7-18) mg/dl Creatinine (0.6-1.4) mg/dl Est Cr Clr Drug Dosing ml/min Est GFR ( Amer) Est GFR (Non-Af Amer) BUN/Creatinine Ratio (10-20) Glucose (70-99) mg/dl POC Glucose 97 126 H (70-99) mg/dl Calcium (8.5-10.1) mg/dl Ferritin (8-388) ng/ml Vitamin B12 (193-986) pg/ml Folate (>5.38) ng/ml Blood Type Blood Type Recheck Antibody Screen Crossmatch 09/26/20 09/24/20 Range/Units 05:35 10:07 WBC (4.8-10.8) K/uL RBC (4.7-6.1) M/uL Hgb (14.0-18.0) g/dL Hct (42-52) % MCV (80-100) fL MCH (25-34) pg MCHC (32-36) g/dL RDW Std Deviation (36.4-46.3) fL RDW Coeff of Kimo (11.5-14.5) % Plt Count (130-400) K/uL MPV (7.4-10.4) fL PT (9.0-12.0) Seconds INR (0.9-1.1) Sodium (136-145) mmol/L Potassium (3.5-5.1) mmol/L Chloride (98-107) mmol/L Carbon Dioxide (21-32) mmol/L Anion Gap (3-11) BUN (7-18) mg/dl Creatinine (0.6-1.4) mg/dl Est Cr Clr Drug Dosing ml/min Est GFR ( Amer) Est GFR (Non-Af Amer) BUN/Creatinine Ratio (10-20) Glucose (70-99) mg/dl POC Glucose (70-99) mg/dl Calcium (8.5-10.1) mg/dl Ferritin (8-388) ng/ml Vitamin B12 (193-986) pg/ml Folate (>5.38) ng/ml Blood Type O Positive Blood Type Recheck O Positive Antibody Screen NEGATIVE Crossmatch See Detail
[2020-09-27] MEDS ORDERED: SODIUM CHLORIDE 0.9% 250 ML IV PRN (14:40)
[2020-09-27] MEDS ORDERED: bisacodyL 10 MG SUPP PR STA (14:40)
[2020-09-27] MEDS: WARFARIN SOD 7.5 MG TAB PO SCH (15:20)
[2020-09-27] MEDS ORDERED: FUROSEMIDE 20 MG TAB PO ONE (16:33)
--- NOTE | 2020-09-27 19:47 | Hospitalist Progress Note ---
Date of Service September 27, 2020 Assessment & Plan (1) Primary osteoarthritis of right hip: POD #3 s/p right THR by Dr Jett. Course complicated by acute blood loss anemia with resulting low-normal and low BPs/hypotension. s/p 1 unit PRBCs yesterday Agree with additional unit today. Care d/w Julio César Starks today. (2) Status post total hip replacement, right: POD #3 s/p right THR. Acute blood loss anemia - continue Fe supplementation. Agree with additional 1 unit PRBCs today. Repeat CBC. (3) Acute blood loss anemia: 1 unit PRBCs on 09/26 Giving 2nd unit today. Check fecal occult blood to ensure no other source of blood loss - had very poor response to PRBCs overnight. Continue ferrous sulfate 325mg BID. CBC in am. 2nd to perioperative blood loss, some dilutional effect, etc. b12, folate, and ferritin wnl. (4) Left foot pain: x 2 months. Peroneal tendonitis suspected - see below. x-rays left foot and left ankle neg for fracture, CPPD changes, etc. (5) Peroneal tendonitis: Left. voltaren gel qid. IMPROVED. (6) Morbid obesity with BMI of 40.0-44.9, adult: BMI 41 (7) Diabetes mellitus, controlled: a1c 5.4% in 08/2020. not even in pre-DM range. regardless he is well controlled at this time. novolog prn. (8) Mild CAD: 03/2020 heart cath with clean LAD, mild LCx, mild RCA disease. continues to have no cardiopulmonary symptoms. (9) CIRA on CPAP: home CPAP (10) Hypertension: BPs are low-normal or low due to acute blood loss anemia. Continue to hold ARB, HCTZ and lasix. Continue metoprolol BID but at lower dose of 75mg BID. Repeat labs am. Follow BPs. Tx 1 unit PRBCs again today. (11) Esophageal reflux: with Woodard's esophagus. PPI daily. (12) Atrial fibrillation, permanent: rates controlled with metoprolol. INR every am while here. warfarin per home regimen. (13) DVT prophylaxis: coumadin care d/w orthopedics again today hopefully home tomorrow Admission and Anticipated Discharge Date Admission Date: September 24, 2020 Subjective patient w/o complaints denies dizziness stool grossly normal at home - he has never seen melena or BRBPR no stool yet here but passing plenty of flatus no dyspnea no cp minimal right hip pain no left foot pain - tolerating walks Review of Systems Respiratory: no cough, no dyspnea and no dyspnea on exertion Cardiovascular: no chest pain Gastrointestinal: + constipation; no abdominal pain, no nausea, no vomiting, no blood in stools and no melena Musculoskeletal: + joint pain (right hip - controlled ) Physical Exam Constitutional: well developed, well nourished and + morbidly obese; no acute distress and no altered mental status ENMT: external ear and nose normal, oropharynx normal Respiratory: normal respiratory effort, lungs clear to auscultation Cardiovascular: Rate/Rhythm: regular rate and + irregularly irregular Heart Sounds: normal S1 and normal S2; no murmur Vessels: posterior tibial pulses present and dorsalis pedis pulses present; no JVD Extremities: + edema (1+ b/l ) Gastrointestinal (Abdomen): normal bowel sounds, soft, nontender, no hepatosplenomegaly Musculoskeletal: no tenderness over left lateral foot to palpation today Skin: + pallor Psychiatric: A+Ox3, euthymic affect Results & Data Results & Data ([facility]) Vital Signs (Past 12 Hours) Vital Signs Temp Pulse Pulse Resp BP BP Pulse Ox 09/27/20 19:00 37.2 C 95 H 14 99/69 L 93 09/27/20 18:00 36.9 C 94 H 16 125/63 95 09/27/20 17:26 36.9 C 94 H 16 119/76 95 09/27/20 17:15 36.6 C 94 H 16 116/72 95 09/27/20 17:01 36.8 C 94 H 18 110/75 94 09/27/20 16:23 36.8 C 82 16 101/69 97 Laboratory Results Laboratory Results - last 24 hr 09/24/20 09/26/20 09/27/20 10:07 21:12 06:21 WBC RBC Hgb Hct MCV MCH MCHC RDW Std Deviation RDW Coeff of Kimo Plt Count MPV PT 13.5 H INR 1.4 H Sodium Potassium Chloride Carbon Dioxide Anion Gap BUN Creatinine Est Cr Clr Drug Dosing Est GFR ( Amer) Est GFR (Non-Af Amer) BUN/Creatinine Ratio Glucose POC Glucose 99 Calcium Ferritin Vitamin B12 Folate Blood Type Antibody Screen Crossmatch See Detail 09/27/20 09/27/20 09/27/20 06:21 06:21 06:21 WBC 8.03 RBC 2.64 L Hgb 8.2 L Hct 24.1 L MCV 91.3 MCH 31.1 MCHC 34.0 RDW Std Deviation 47.1 H RDW Coeff of Kimo 14.1 Plt Count 147 MPV 9.3 PT INR Sodium 138 Potassium 4.6 Chloride 107 Carbon Dioxide 29 Anion Gap 2.0 L BUN 25 H Creatinine 0.95 Est Cr Clr Drug Dosing 122.1 Est GFR ( Amer) 96.3 Est GFR (Non-Af Amer) 83.1 BUN/Creatinine Ratio 26.4 H Glucose 92 POC Glucose Calcium 8.2 L Ferritin 480.6 H Vitamin B12 1351 H Folate 19.30 Blood Type Antibody Screen Crossmatch 09/27/20 09/27/20 09/27/20 08:41 12:13 15:11 WBC RBC Hgb Hct MCV MCH MCHC RDW Std Deviation RDW Coeff of Kimo Plt Count MPV PT INR Sodium Potassium Chloride Carbon Dioxide Anion Gap BUN Creatinine Est Cr Clr Drug Dosing Est GFR ( Amer) Est GFR (Non-Af Amer) BUN/Creatinine Ratio Glucose POC Glucose 106 H 116 H Calcium Ferritin Vitamin B12 Folate Blood Type O Positive Antibody Screen NEGATIVE Crossmatch See Detail 09/27/20 17:05 WBC RBC Hgb Hct MCV MCH MCHC RDW Std Deviation RDW Coeff of Kimo Plt Count MPV PT INR Sodium Potassium Chloride Carbon Dioxide Anion Gap BUN Creatinine Est Cr Clr Drug Dosing Est GFR ( Amer) Est GFR (Non-Af Amer) BUN/Creatinine Ratio Glucose POC Glucose 95 Calcium Ferritin Vitamin B12 Folate Blood Type Antibody Screen Crossmatch PG Care Time/CCT Total # of Minutes Spent Total Time Spent with Patient: Total time spent is greater than 50% in coordination of care (as documented) at patient's floor/unit and/or counseling patient: Coding Level of Care Code 30247 Subseq Hosp Care Lvl 2 Diagnoses Primary osteoarthritis of right hip M16.11 Status post total hip replacement, right Z96.641 Acute blood loss anemia D62 Left foot pain M79.672 Peroneal tendonitis M76.70 Morbid obesity with BMI of 40.0-44.9, adult E66.01; Z68.41 Diabetes mellitus, controlled E11.9 Mild CAD I25.10 CIRA on CPAP G47.33; Z99.89 Hypertension I10 Esophageal reflux K21.9 Atrial fibrillation, permanent I48.2 DVT prophylaxis Z29.9
[2020-09-27] MEDS: SENNA 8.6 MG TAB PO SCH (20:10)
[2020-09-27] MEDS: ALFUZOSIN HCL 10 MG TAB PO SCH (20:10)
[2020-09-27] MEDS: FAMOTIDINE 40 MG TABLET PO SCH (20:10)
[2020-09-27] MEDS: ATORVASTATIN 40 MG TAB PO SCH (20:11)
[2020-09-28] MEDS: ACETAMINOPHEN 500 MG TAB PO SCH ×2 (05:34→13:28)
[2020-09-28 07:17] LABS: INR 1.5 (0.9-1.1); Prothrombin Time 14.5 Seconds (9.0-12.0)
[2020-09-28 07:20] LABS: Hematocrit (blood only) 25.9 % (42-52); Hemoglobin 8.7 g/dL (14.0-18.0); Mean Corpuscular Hemoglobin 30.5 pg (25-34); Mean Corpuscular Hgb Conc 33.6 g/dL (32-36); Mean Corpuscular Volume 90.9 fL (80-100); Mean Platelet Volume 9.3 fL (7.4-10.4); Platelet Count 159 K/uL (130-400); RDW Coefficient of Variation 14.1 % (11.5-14.5); Red Blood Count 2.85 M/uL (4.7-6.1); White Blood Count 7.35 K/uL (4.8-10.8)
[2020-09-28 07:48] LABS: BUN Creatinine Ratio 25.5 (10-20); Calcium 8.5 mg/dl (8.5-10.1); Creatinine Clr Calc Pharmacy 126.1 ml/min; Est GFR (African American) 100.1; Est GFR (Non-African American) 86.4; Potassium 4.1 mmol/L (3.5-5.1)
--- NOTE | 2020-09-28 08:50 | Orthopedic Progress Note ---
Date of Service September 28, 2020 Assessment & Plan (1) Status post total hip replacement, right: Admission and Anticipated Discharge Date Admission Date: 65 yo male stable POD #4 s/p right LILA, postop anemia, transfused 2 units PRBCs, asymptomatic 1. Med management 2. DVT prophylaxis- resume Coumadin, SCDs 3. PT/OT 4. D/C planning- home w/ HH if OK with medicine Subjective Pt resting in chair, eating breakfast, pain controlled, denies complaints Physical Exam Physical Exam: Toes mobile, N/V/I, Prevena dressing in place, thigh and calf soft Results & Data ([facility]) Vital Signs (Past 12 Hours) Vital Signs Temp Pulse Resp BP Pulse Ox 09/28/20 07:13 36.6 C 78 16 103/67 93 09/27/20 23:00 37.3 C 100 H 16 105/66 95 Laboratory Results 09/28/20 09/28/20 09/28/20 Range/Units 08:03 06:25 06:25 WBC (4.8-10.8) K/uL RBC (4.7-6.1) M/uL Hgb (14.0-18.0) g/dL Hct (42-52) % MCV (80-100) fL MCH (25-34) pg MCHC (32-36) g/dL RDW Std Deviation (36.4-46.3) fL RDW Coeff of Kimo (11.5-14.5) % Plt Count (130-400) K/uL MPV (7.4-10.4) fL PT 14.5 H (9.0-12.0) Seconds INR 1.5 H (0.9-1.1) Sodium 137 (136-145) mmol/L Potassium 4.1 (3.5-5.1) mmol/L Chloride 105 (98-107) mmol/L Carbon Dioxide 27 (21-32) mmol/L Anion Gap 5.0 (3-11) BUN 23 H (7-18) mg/dl Creatinine 0.92 (0.6-1.4) mg/dl Est Cr Clr Drug Dosing 126.1 ml/min Est GFR ( Amer) 100.1 Est GFR (Non-Af Amer) 86.4 BUN/Creatinine Ratio 25.5 H (10-20) Glucose 92 (70-99) mg/dl POC Glucose 107 H (70-99) mg/dl Calcium 8.5 (8.5-10.1) mg/dl Stool Occult Bld Scrn (Negative) Blood Type Antibody Screen Crossmatch 09/28/20 09/27/20 09/27/20 Range/Units 06:25 Unknown 20:35 WBC 7.35 (4.8-10.8) K/uL RBC 2.85 L (4.7-6.1) M/uL Hgb 8.7 L (14.0-18.0) g/dL Hct 25.9 L (42-52) % MCV 90.9 (80-100) fL MCH 30.5 (25-34) pg MCHC 33.6 (32-36) g/dL RDW Std Deviation 47.0 H (36.4-46.3) fL RDW Coeff of Kimo 14.1 (11.5-14.5) % Plt Count 159 (130-400) K/uL MPV 9.3 (7.4-10.4) fL PT (9.0-12.0) Seconds INR (0.9-1.1) Sodium (136-145) mmol/L Potassium (3.5-5.1) mmol/L Chloride (98-107) mmol/L Carbon Dioxide (21-32) mmol/L Anion Gap (3-11) BUN (7-18) mg/dl Creatinine (0.6-1.4) mg/dl Est Cr Clr Drug Dosing ml/min Est GFR ( Amer) Est GFR (Non-Af Amer) BUN/Creatinine Ratio (10-20) Glucose (70-99) mg/dl POC Glucose 98 (70-99) mg/dl Calcium (8.5-10.1) mg/dl Stool Occult Bld Scrn Negative (Negative) Blood Type Antibody Screen Crossmatch 09/27/20 09/27/20 09/27/20 Range/Units 17:05 15:11 12:13 WBC (4.8-10.8) K/uL RBC (4.7-6.1) M/uL Hgb (14.0-18.0) g/dL Hct (42-52) % MCV (80-100) fL MCH (25-34) pg MCHC (32-36) g/dL RDW Std Deviation (36.4-46.3) fL RDW Coeff of Kimo (11.5-14.5) % Plt Count (130-400) K/uL MPV (7.4-10.4) fL PT (9.0-12.0) Seconds INR (0.9-1.1) Sodium (136-145) mmol/L Potassium (3.5-5.1) mmol/L Chloride (98-107) mmol/L Carbon Dioxide (21-32) mmol/L Anion Gap (3-11) BUN (7-18) mg/dl Creatinine (0.6-1.4) mg/dl Est Cr Clr Drug Dosing ml/min Est GFR ( Amer) Est GFR (Non-Af Amer) BUN/Creatinine Ratio (10-20) Glucose (70-99) mg/dl POC Glucose 95 116 H (70-99) mg/dl Calcium (8.5-10.1) mg/dl Stool Occult Bld Scrn (Negative) Blood Type O Positive Antibody Screen NEGATIVE Crossmatch See Detail 09/24/20 Range/Units 10:07 WBC (4.8-10.8) K/uL RBC (4.7-6.1) M/uL Hgb (14.0-18.0) g/dL Hct (42-52) % MCV (80-100) fL MCH (25-34) pg MCHC (32-36) g/dL RDW Std Deviation (36.4-46.3) fL RDW Coeff of Kimo (11.5-14.5) % Plt Count (130-400) K/uL MPV (7.4-10.4) fL PT (9.0-12.0) Seconds INR (0.9-1.1) Sodium (136-145) mmol/L Potassium (3.5-5.1) mmol/L Chloride (98-107) mmol/L Carbon Dioxide (21-32) mmol/L Anion Gap (3-11) BUN (7-18) mg/dl Creatinine (0.6-1.4) mg/dl Est Cr Clr Drug Dosing ml/min Est GFR ( Amer) Est GFR (Non-Af Amer) BUN/Creatinine Ratio (10-20) Glucose (70-99) mg/dl POC Glucose (70-99) mg/dl Calcium (8.5-10.1) mg/dl Stool Occult Bld Scrn (Negative) Blood Type Antibody Screen Crossmatch See Detail
[2020-09-28] MEDS: INSULIN ASPART 100 UNITS/ML 3 ML PEN SC SCH ×2 (08:56→13:26)
[2020-09-28] MEDS: CETIRIZINE HCL 10 MG TABLET PO SCH (08:57)
[2020-09-28] MEDS: CHOLECALCIFEROL 1,000 UNITS 25 MCG TAB PO SCH (08:57)
[2020-09-28] MEDS: MULTIVITAMIN TAB PO SCH ×2 (08:58→09:00)
[2020-09-28] MEDS: PANTOprazole 40 MG TAB PO SCH (08:58)
[2020-09-28] MEDS: METOPROLOL TARTRATE 25 MG TAB PO SCH (08:59)
[2020-09-28] MEDS: MAGNESIUM OXIDE 400 MG TAB PO SCH (08:59)
[2020-09-28] MEDS: FERROUS SULFATE 325 MG TAB PO SCH (08:59)
[2020-09-28] MEDS: DICLOFENAC SOD 1% GEL 100 GM TUBE EXT SCH ×2 (09:00→13:27)
[2020-09-28] MEDS: DOCUSATE SODIUM 100 MG CAP PO SCH (09:00)
[2020-09-28] MEDS: GABAPENTIN 300 MG CAP PO SCH ×2 (09:00→15:08)
[2020-09-28] MEDS: oxyCODONE HCL IR 5 MG TAB (IMMEDIATE RELEASE) PO PRN ×2 (09:11→15:08)
--- NOTE | 2020-09-28 13:38 | Hospitalist Progress Note ---
Date of Service September 28, 2020 Assessment & Plan (1) Primary osteoarthritis of right hip: POD #4 s/p right THR by Dr Jett. Course complicated by acute blood loss anemia with resulting low-normal and low BPs/hypotension. s/p 2 unit PRBCs this admission. see below. (2) Status post total hip replacement, right: POD #4 s/p right THR. Acute blood loss anemia - continue Fe supplementation. s/p 2 units PRBCs this admission. Repeat CBC today acceptable. Doing well from ortho standpoint. (3) Acute blood loss anemia: 1 unit PRBCs on 4 1 units PRBCs on 4. Given for LOW bps and mild dizziness. Hb today 8.7. HEME NEGATIVE STOOL. Continue ferrous sulfate 325mg BID. will need for 3 months or longer as outpatient. 2nd to perioperative blood loss, some dilutional effect, etc. b12, folate, and ferritin wnl. discussed Fe supplementation today. advised that his PCP should follow counts. (4) Left foot pain: x 2 months. Peroneal tendonitis suspected - see below. x-rays left foot and left ankle neg for fracture, CPPD changes, etc. (5) Peroneal tendonitis: Left. voltaren gel qid. IMPROVED. Cont voltaren gel at discharge. f/u with ortho after discharge for this. (6) Morbid obesity with BMI of 40.0-44.9, adult: BMI 41 (7) Diabetes mellitus, controlled: a1c 5.4% in 08/2020. not even in pre-DM range. regardless he is well controlled at this time. continue dietary control at home. (8) Mild CAD: 03/2020 heart cath with clean LAD, mild LCx, mild RCA disease. no cardiopulmonary symptoms while hospitalized. (9) CIRA on CPAP: home CPAP (10) Hypertension: BPs are low-normal or low due to acute blood loss anemia. Continue to hold ARB and HCTZ at discharge. Can resume lasix but would probably use PRN rather than scheduled for now. Continue metoprolol BID but at lower dose of 75mg BID. Gave him instructions to check BP daily at home. He has cuff. If systolic BPs rise and are consistently high he should resume his normal metoprolol dosing of 100 BID. f/u PCP for this. (11) Esophageal reflux: with Woodard's esophagus. PPI daily. (12) Atrial fibrillation, permanent: rates controlled with metoprolol. INR 1.5 today. resume warfarin per home regimen upon discharge and have an INR check as o utpatient in 3 days to ensure stability. (13) DVT prophylaxis: coumadin care d/w ortho again today from medical standpoint can d/c home today with close follow-up with PCP for medical issues Admission and Anticipated Discharge Date Admission Date: September 27, 2020 Subjective feeling good w/o dizziness or lightheadedness had BM late yesterday with use of suppository - brown stool, HEME NEGATIVE no bleeding from right hip pain controlled no dyspnea no chest pain no N/V or abd pain eating well left foot feeling good Review of Systems Constitutional: no fever, no chills, no fatigue and no anorexia Respiratory: no cough, no dyspnea and no dyspnea on exertion Cardiovascular: no chest pain Gastrointestinal: no abdominal pain, no nausea, no vomiting and no diarrh ea/loose stools Genitourinary: no difficulty urinating Physical Exam Constitutional: well developed, well nourished and + morbidly obese; no acute distress and no altered mental status ENMT: external ear and nose normal, oropharynx normal Respiratory: normal respiratory effort, lungs clear to auscultation Cardiovascular: Rate/Rhythm: regular rate and + irregularly irregular Heart Sounds: normal S1 and normal S2; no murmur Vessels: posterior tibial pulses present and dorsalis pedis pulses present; no JVD Extremities: + edema (1+ b/l ) Gastrointestinal (Abdomen): normal bowel sounds, soft, nontender, no hepatosplenomegaly Musculoskeletal: left foot - tenderness resolved over lateral foot to palpation Skin: + pallor Psychiatric: A+Ox3, euthymic affect Results & Data Results & Data ([facility]) Vital Signs (Past 12 Hours) Vital Signs Temp Pulse Pulse Pulse Resp BP BP 09/28/20 13:06 36.6 C 76 106 H 78 16 108/70 103/67 09/28/20 07:13 36.6 C 78 16 103/67 Pulse Ox 09/28/20 13:06 93 09/28/20 07:13 93 Laboratory Results Laboratory Results - last 24 hr 09/24/20 09/27/20 09/27/20 10:07 15:11 17:05 WBC RBC Hgb Hct MCV MCH MCHC RDW Std Deviation RDW Coeff of Kimo Plt Count MPV PT INR Sodium Potassium Chloride Carbon Dioxide Anion Gap BUN Creatinine Est Cr Clr Drug Dosing Est GFR ( Amer) Est GFR (Non-Af Amer) BUN/Creatinine Ratio Glucose POC Glucose 95 Calcium Stool Occult Bld Scrn Blood Type O Positive Antibody Screen NEGATIVE Crossmatch See Detail See Detail 09/27/20 09/27/20 09/28/20 20:35 Unknown 06:25 WBC 7.35 RBC 2.85 L Hgb 8.7 L Hct 25.9 L MCV 90.9 MCH 30.5 MCHC 33.6 RDW Std Deviation 47.0 H RDW Coeff of Kimo 14.1 Plt Count 159 MPV 9.3 PT INR Sodium Potassium Chloride Carbon Dioxide Anion Gap BUN Creatinine Est Cr Clr Drug Dosing Est GFR ( Amer) Est GFR (Non-Af Amer) BUN/Creatinine Ratio Glucose POC Glucose 98 Calcium Stool Occult Bld Scrn Negative Blood Type Antibody Screen Crossmatch 09/28/20 09/28/20 09/28/20 06:25 06:25 08:03 WBC RBC Hgb Hct MCV MCH MCHC RDW Std Deviation RDW Coeff of Kimo Plt Count MPV PT 14.5 H INR 1.5 H Sodium 137 Potassium 4.1 Chloride 105 Carbon Dioxide 27 Anion Gap 5.0 BUN 23 H Creatinine 0.92 Est Cr Clr Drug Dosing 126.1 Est GFR ( Amer) 100.1 Est GFR (Non-Af Amer) 86.4 BUN/Creatinine Ratio 25.5 H Glucose 92 POC Glucose 107 H Calcium 8.5 Stool Occult Bld Scrn Blood Type Antibody Screen Crossmatch 09/28/20 11:55 WBC RBC Hgb Hct MCV MCH MCHC RDW Std Deviation RDW Coeff of Kimo Plt Count MPV PT INR Sodium Potassium Chloride Carbon Dioxide Anion Gap BUN Creatinine Est Cr Clr Drug Dosing Est GFR ( Amer) Est GFR (Non-Af Amer) BUN/Creatinine Ratio Glucose POC Glucose 121 H Calcium Stool Occult Bld Scrn Blood Type Antibody Screen Crossmatch PG Care Time/CCT Total # of Minutes Spent Total Time Spent with Patient: Total time spent is greater than 50% in coordination of care (as documented) at patient's floor/unit and/or counseling patient: Coding Level of Care Code 88360 Subseq Hosp Care Lvl 3 Diagnoses Primary osteoarthritis of right hip M16.11 Status post total hip replacement, right Z96.641 Acute blood loss anemia D62 Left foot pain M79.672 Peroneal tendonitis M76.70 Morbid obesity with BMI of 40.0-44.9, adult E66.01; Z68.41 Diabetes mellitus, controlled E11.9 Mild CAD I25.10 CIRA on CPAP G47.33; Z99.89 Hypertension I10 Esophageal reflux K21.9 Atrial fibrillation, permanent I48.2 DVT prophylaxis Z29.9
[2020-09-28] MEDS: WARFARIN SOD 7.5 MG TAB PO SCH (15:31)
--- NOTE | 2020-09-28 18:44 | Discharge Summary ---
Date of Service September 28, 2020 Admission HPI Per Admitting Provider 65 year old male with PMHx significant for HTN, CIRA, BPH, DM2, CAD, a-fib anticoagulated on Warfarin with longstanding right hip pain. He has had previous left hip replacement. He has failed conservative measures. Pain interfering with his ability to carry out daily activites. He would like to proceed with right hip replacement. Patient denies headaches, sweats, fevers, chills, double vision, blurred vision, cough, sore throat, dysphagia, chest pain, sob, wheezing, n/v/d/c, numbness, tingling, fatigue, urinary symptoms, mood disorders. ROS positive for right hip pain and stiffness. Admission Exam Per Admitting Provider Constitutional: well developed and well nourished; no acute distress Eyes: PERRL, conjunctivae normal, anicteric sclerae ENMT: external ear and nose normal, oropharynx normal Neck: trachea midline, no thyromegaly Respiratory: normal respiratory effort, lungs clear to auscultation Cardiovascular: Rate/Rhythm: regular rate and + irregularly irregular Heart Sounds: no murmur Musculoskeletal: Right hip: Painful active and passive ROM. Pain with passive IR and ER of hip, pain into groin. Strength normal. Tenderness anteriorly over hip flexors. Skin: no rashes, warm and dry Neurologic: patellar DTR's 2+ bilat, sensation intact Psychiatric: A+Ox3, euthymic affect Principal Diagnosis Right hip osteoarthritis, acute blood loss anemia Discharge Exam Toes mobile, N/V/I, Prevena dressing in place, thigh and calf soft Constitutional well developed and well nourished; no acute distress Eyes PERRL, conjunctivae normal, anicteric sclerae ENMT external ear and nose normal, oropharynx normal Neck trachea midline, no thyromegaly Respiratory normal respiratory effort, lungs clear to auscultation Cardiovascular Rate/Rhythm: regular rate and + irregularly irregular Heart Sounds: no murmur Skin no rashes, warm and dry Neurologic patellar DTR's 2+ bilat, sensation intact Psychiatric A+Ox3, euthymic affect Discharge Data Allergies Allergy/AdvReac Type Severity Reaction Status Date / Time hydrochlorothiazide Allergy Mild Hypotension Verified 09/24/20 10:09 [From Aldoril D30] methyldopa [From Aldoril D30] Allergy Mild Hypotension Verified 09/24/20 10:09 Consultations 09/22/20 11:00 Consult Hospitalist Routine 09/24/20 17:42 Consult Internal Medicine Routine Procedures Performed Operation Date: 09/24/20 11:55 Actual Procedures p Right Total Hip Arthroplasty(Right) - Paco Jett MD Hospital Course (1) Status post total hip replacement, right: Patient presented for same day admission following right total hip arthroplasty on 09/24/20. He tolerated procedure well. His post operative course was complicated by acute blood loss anemia leading to low/low normal BPs. Post- operatively, his activity was progressed and well tolerated. They participated in PT with ambulation distance of 260 feet. On POD#2 his Hgb dropped to 8.0 and was given 1 unit of PRBC, with an additional unit given on POD#3 due to hgb of 8.2 and persistently low blood pressures. By POD#4 his hemoglobin was at 8.7 and his blood pressure did improve. He also had complaint of left ankle pain post operatively which has been ongoing. X-rays were obtained and negative for fx. He was ordered 24hrs of Toradol which did help with this pain. Dr. Louis Vinson of medical service was consulted for medical management during admission. Pain controlled on oral medications. Please refer to daily progress notes and PT notes for complete details. After exam on 09/28/20, patient was felt to be stable for discharge home with plans on outpatient PT. Patient will f/u in the office in about 2 weeks for further evaluation including x-rays and incision check, sooner if having any issues or concerns. Lab Results 08/29/20 08/29/20 08/29/20 Range/Units 11:35 11:35 11:35 WBC (4.8-10.8) K/uL RBC (4.7-6.1) M/uL Hgb (14.0-18.0) g/dL Hct (42-52) % MCV (80-100) fL MCH (25-34) pg MCHC (32-36) g/dL RDW Std Deviation (36.4-46.3) fL RDW Coeff of Kimo (11.5-14.5) % Plt Count (130-400) K/uL MPV (7.4-10.4) fL Immature Gran % (Auto) % Neut % (Auto) % Lymph % (Auto) % [place] % (Auto) % Eos % (Auto) % Baso % (Auto) % Neut # (Auto) (1.4-6.5) K/uL Lymph # (Auto) (1.2-3.4) K/uL [place] # (Auto) (0.11-0.59) K/uL Eos # (Auto) (0-0.5) K/uL Baso # (Auto) (0-0.2) K/uL Immature Gran # (Auto) (0.00-0.02) K/uL PT 25.6 H (9.0-12.0) Seconds INR 2.7 H (0.9-1.1) APTT 40.7 H (21.0-31.0) Seconds PTT Ratio 1.5 Sodium (136-145) mmol/L Potassium (3.5-5.1) mmol/L Chloride (98-107) mmol/L Carbon Dioxide (21-32) mmol/L Anion Gap (3-11) BUN (7-18) mg/dl Creatinine (0.6-1.4) mg/dl Est Cr Clr Drug Dosing ml/min Est GFR ( Amer) Est GFR (Non-Af Amer) BUN/Creatinine Ratio (10-20) Glucose (70-99) mg/dl POC Glucose (70-99) mg/dl Calcium (8.5-10.1) mg/dl Magnesium (1.8-2.4) mg/dl Ferritin (8-388) ng/ml Vitamin B12 (193-986) pg/ml Folate (>5.38) ng/ml Urine Color Yellow Urine Appearance Clear (Clear) Urine pH 5.0 (4.5-7.5) Ur Specific Ute 1.023 (1.000-1.030) Urine Protein Negative (Negative) Urine Glucose (UA) Negative (Negative) Urine Ketones Negative (Negative) Urine Blood Negative (Negative) Urine Nitrite Negative (Negative) Urine Bilirubin Negative (Negative) Urine Urobilinogen Negative (Negative) Ur Leukocyte Esterase Negative (Negative) Stool Occult Bld Scrn (Negative) COVID-19 Eval Order SARS-CoV-2, RNA, NAAT (NEGATIVE) Blood Type O Positive Blood Type Recheck Antibody Screen NEGATIVE Crossmatch 09/24/20 09/24/20 09/24/20 Range/Units 10:07 10:07 10:48 WBC (4.8-10.8) K/uL RBC (4.7-6.1) M/uL Hgb (14.0-18.0) g/dL Hct (42-52) % MCV (80-100) fL MCH (25-34) pg MCHC (32-36) g/dL RDW Std Deviation (36.4-46.3) fL RDW Coeff of Kimo (11.5-14.5) % Plt Count (130-400) K/uL MPV (7.4-10.4) fL Immature Gran % (Auto) % Neut % (Auto) % Lymph % (Auto) % [place] % (Auto) % Eos % (Auto) % Baso % (Auto) % Neut # (Auto) (1.4-6.5) K/uL Lymph # (Auto) (1.2-3.4) K/uL [place] # (Auto) (0.11-0.59) K/uL Eos # (Auto) (0-0.5) K/uL Baso # (Auto) (0-0.2) K/uL Immature Gran # (Auto) (0.00-0.02) K/uL PT 10.5 (9.0-12.0) Seconds INR 1.0 (0.9-1.1) APTT 26.5 (21.0-31.0) Seconds PTT Ratio 1.0 Sodium (136-145) mmol/L Potassium (3.5-5.1) mmol/L Chloride (98-107) mmol/L Carbon Dioxide (21-32) mmol/L Anion Gap (3-11) BUN (7-18) mg/dl Creatinine (0.6-1.4) mg/dl Est Cr Clr Drug Dosing ml/min Est GFR ( Amer) Est GFR (Non-Af Amer) BUN/Creatinine Ratio (10-20) Glucose (70-99) mg/dl POC Glucose 103 H (70-99) mg/dl Calcium (8.5-10.1) mg/dl Magnesium (1.8-2.4) mg/dl Ferritin (8-388) ng/ml Vitamin B12 (193-986) pg/ml Folate (>5.38) ng/ml Urine Color Urine Appearance (Clear) Urine pH (4.5-7.5) Ur Specific [place]te (1.000-1.030) Urine Protein (Negative) Urine Glucose (UA) (Negative) Urine Ketones (Negative) Urine Blood (Negative) Urine Nitrite (Negative) Urine Bilirubin (Negative) Urine Urobilinogen (Negative) Ur Leukocyte Esterase (Negative) Stool Occult Bld Scrn (Negative) COVID-19 Eval Order SARS-CoV-2, RNA, NAAT (NEGATIVE) Blood Type O Positive Blood Type Recheck Antibody Screen NEGATIVE Crossmatch See Detail 09/24/20 09/24/20 09/24/20 Range/Units 16:34 18:11 20:43 WBC (4.8-10.8) K/uL RBC (4.7-6.1) M/uL Hgb (14.0-18.0) g/dL Hct (42-52) % MCV (80-100) fL MCH (25-34) pg MCHC (32-36) g/dL RDW Std Deviation (36.4-46.3) fL RDW Coeff of Kimo (11.5-14.5) % Plt Count (130-400) K/uL MPV (7.4-10.4) fL Immature Gran % (Auto) % Neut % (Auto) % Lymph % (Auto) % [place] % (Auto) % Eos % (Auto) % Baso % (Auto) % Neut # (Auto) (1.4-6.5) K/uL Lymph # (Auto) (1.2-3.4) K/uL [place] # (Auto) (0.11-0.59) K/uL Eos # (Auto) (0-0.5) K/uL Baso # (Auto) (0-0.2) K/uL Immature Gran # (Auto) (0.00-0.02) K/uL PT (9.0-12.0) Seconds INR (0.9-1.1) APTT (21.0-31.0) Seconds PTT Ratio Sodium (136-145) mmol/L Potassium (3.5-5.1) mmol/L Chloride (98-107) mmol/L Carbon Dioxide (21-32) mmol/L Anion Gap (3-11) BUN (7-18) mg/dl Creatinine (0.6-1.4) mg/dl Est Cr Clr Drug Dosing ml/min Est GFR ( Amer) Est GFR (Non-Af Amer) BUN/Creatinine Ratio (10-20) Glucose (70-99) mg/dl POC Glucose 117 H 124 H 168 H (70-99) mg/dl Calcium (8.5-10.1) mg/dl Magnesium (1.8-2.4) mg/dl Ferritin (8-388) ng/ml Vitamin B12 (193-986) pg/ml Folate (>5.38) ng/ml Urine Color Urine Appearance (Clear) Urine pH (4.5-7.5) Ur Specific [place]te (1.000-1.030) Urine Protein (Negative) Urine Glucose (UA) (Negative) Urine Ketones (Negative) Urine Blood (Negative) Urine Nitrite (Negative) Urine Bilirubin (Negative) Urine Urobilinogen (Negative) Ur Leukocyte Esterase (Negative) Stool Occult Bld Scrn (Negative) COVID-19 Eval Order SARS-CoV-2, RNA, NAAT (NEGATIVE) Blood Type Blood Type Recheck Antibody Screen Crossmatch 09/24/20 09/24/20 09/25/20 Range/Units Unknown Unknown 08:11 WBC (4.8-10.8) K/uL RBC (4.7-6.1) M/uL Hgb (14.0-18.0) g/dL Hct (42-52) % MCV (80-100) fL MCH (25-34) pg MCHC (32-36) g/dL RDW Std Deviation (36.4-46.3) fL RDW Coeff of Kimo (11.5-14.5) % Plt Count (130-400) K/uL MPV (7.4-10.4) fL Immature Gran % (Auto) % Neut % (Auto) % Lymph % (Auto) % [place] % (Auto) % Eos % (Auto) % Baso % (Auto) % Neut # (Auto) (1.4-6.5) K/uL Lymph # (Auto) (1.2-3.4) K/uL [place] # (Auto) (0.11-0.59) K/uL Eos # (Auto) (0-0.5) K/uL Baso # (Auto) (0-0.2) K/uL Immature Gran # (Auto) (0.00-0.02) K/uL PT 10.9 (9.0-12.0) Seconds INR 1.1 (0.9-1.1) APTT (21.0-31.0) Seconds PTT Ratio Sodium (136-145) mmol/L Potassium (3.5-5.1) mmol/L Chloride (98-107) mmol/L Carbon Dioxide (21-32) mmol/L Anion Gap (3-11) BUN (7-18) mg/dl Creatinine (0.6-1.4) mg/dl Est Cr Clr Drug Dosing ml/min Est GFR ( Amer) Est GFR (Non-Af Amer) BUN/Creatinine Ratio (10-20) Glucose (70-99) mg/dl POC Glucose (70-99) mg/dl Calcium (8.5-10.1) mg/dl Magnesium (1.8-2.4) mg/dl Ferritin (8-388) ng/ml Vitamin B12 (193-986) pg/ml Folate (>5.38) ng/ml Urine Color Urine Appearance (Clear) Urine pH (4.5-7.5) Ur Specific [place]te (1.000-1.030) Urine Protein (Negative) Urine Glucose (UA) (Negative) Urine Ketones (Negative) Urine Blood (Negative) Urine Nitrite (Negative) Urine Bilirubin (Negative) Urine Urobilinogen (Negative) Ur Leukocyte Esterase (Negative) Stool Occult Bld Scrn (Negative) COVID-19 Eval Order Covid19 [facility]Now [facility] SARS-CoV-2, RNA, NAAT NEGATIVE (NEGATIVE) Blood Type Blood Type Recheck Antibody Screen Crossmatch 09/25/20 09/25/20 09/25/20 Range/Units 08:11 08:11 08:22 WBC 12.47 H (4.8-10.8) K/uL RBC 3.09 L (4.7-6.1) M/uL Hgb 9.4 L (14.0-18.0) g/dL Hct 28.4 L (42-52) % MCV 91.9 (80-100) fL MCH 30.4 (25-34) pg MCHC 33.1 (32-36) g/dL RDW Std Deviation 46.8 H (36.4-46.3) fL RDW Coeff of Kimo 13.9 (11.5-14.5) % Plt Count 172 (130-400) K/uL MPV 9.2 (7.4-10.4) fL Immature Gran % (Auto) 0.3 % Neut % (Auto) 82.6 % Lymph % (Auto) 8.0 % [place] % (Auto) 9.0 % Eos % (Auto) 0.0 % Baso % (Auto) 0.1 % Neut # (Auto) 10.30 H (1.4-6.5) K/uL Lymph # (Auto) 1.00 L (1.2-3.4) K/uL [place] # (Auto) 1.12 H (0.11-0.59) K/uL Eos # (Auto) 0.00 (0-0.5) K/uL Baso # (Auto) 0.01 (0-0.2) K/uL Immature Gran # (Auto) 0.04 H (0.00-0.02) K/uL PT (9.0-12.0) Seconds INR (0.9-1.1) APTT (21.0-31.0) Seconds PTT Ratio Sodium 138 (136-145) mmol/L Potassium 4.3 (3.5-5.1) mmol/L Chloride 108 H (98-107) mmol/L Carbon Dioxide 25 (21-32) mmol/L Anion Gap 6.0 (3-11) BUN 26 H (7-18) mg/dl Creatinine 0.96 (0.6-1.4) mg/dl Est Cr Clr Drug Dosing 120.9 ml/min Est GFR ( Amer) 95.1 Est GFR (Non-Af Amer) 82.0 BUN/Creatinine Ratio 27.0 H (10-20) Glucose 123 H (70-99) mg/dl POC Glucose 132 H (70-99) mg/dl Calcium 8.6 (8.5-10.1) mg/dl Magnesium 2.0 (1.8-2.4) mg/dl Ferritin (8-388) ng/ml Vitamin B12 (193-986) pg/ml Folate (>5.38) ng/ml Urine Color Urine Appearance (Clear) Urine pH (4.5-7.5) Ur Specific [place]te (1.000-1.030) Urine Protein (Negative) Urine Glucose (UA) (Negative) Urine Ketones (Negative) Urine Blood (Negative) Urine Nitrite (Negative) Urine Bilirubin (Negative) Urine Urobilinogen (Negative) Ur Leukocyte Esterase (Negative) Stool Occult Bld Scrn (Negative) COVID-19 Eval Order SARS-CoV-2, RNA, NAAT (NEGATIVE) Blood Type Blood Type Recheck Antibody Screen Crossmatch 09/25/20 09/25/20 09/25/20 Range/Units 12:11 17:33 21:00 WBC (4.8-10.8) K/uL RBC (4.7-6.1) M/uL Hgb (14.0-18.0) g/dL Hct (42-52) % MCV (80-100) fL MCH (25-34) pg MCHC (32-36) g/dL RDW Std Deviation (36.4-46.3) fL RDW Coeff of Kimo (11.5-14.5) % Plt Count (130-400) K/uL MPV (7.4-10.4) fL Immature Gran % (Auto) % Neut % (Auto) % Lymph % (Auto) % [place] % (Auto) % Eos % (Auto) % Baso % (Auto) % Neut # (Auto) (1.4-6.5) K/uL Lymph # (Auto) (1.2-3.4) K/uL [place] # (Auto) (0.11-0.59) K/uL Eos # (Auto) (0-0.5) K/uL Baso # (Auto) (0-0.2) K/uL Immature Gran # (Auto) (0.00-0.02) K/uL PT (9.0-12.0) Seconds INR (0.9-1.1) APTT (21.0-31.0) Seconds PTT Ratio Sodium (136-145) mmol/L Potassium (3.5-5.1) mmol/L Chloride (98-107) mmol/L Carbon Dioxide (21-32) mmol/L Anion Gap (3-11) BUN (7-18) mg/dl Creatinine (0.6-1.4) mg/dl Est Cr Clr Drug Dosing ml/min Est GFR ( Amer) Est GFR (Non-Af Amer) BUN/Creatinine Ratio (10-20) Glucose (70-99) mg/dl POC Glucose 121 H 99 112 H (70-99) mg/dl Calcium (8.5-10.1) mg/dl Magnesium (1.8-2.4) mg/dl Ferritin (8-388) ng/ml Vitamin B12 (193-986) pg/ml Folate (>5.38) ng/ml Urine Color Urine Appearance (Clear) Urine pH (4.5-7.5) Ur Specific [place]te (1.000-1.030) Urine Protein (Negative) Urine Glucose (UA) (Negative) Urine Ketones (Negative) Urine Blood (Negative) Urine Nitrite (Negative) Urine Bilirubin (Negative) Urine Urobilinogen (Negative) Ur Leukocyte Esterase (Negative) Stool Occult Bld Scrn (Negative) COVID-19 Eval Order SARS-CoV-2, RNA, NAAT (NEGATIVE) Blood Type Blood Type Recheck Antibody Screen Crossmatch 09/26/20 09/26/20 09/26/20 Range/Units 05:35 05:35 05:35 WBC 9.11 (4.8-10.8) K/uL RBC 2.56 L (4.7-6.1) M/uL Hgb 8.0 L (14.0-18.0) g/dL Hct 23.4 L (42-52) % MCV 91.4 (80-100) fL MCH 31.3 (25-34) pg MCHC 34.2 (32-36) g/dL RDW Std Deviation 47.1 H (36.4-46.3) fL RDW Coeff of Kimo 14.1 (11.5-14.5) % Plt Count 146 (130-400) K/uL MPV 9.5 (7.4-10.4) fL Immature Gran % (Auto) 0.1 % Neut % (Auto) 67.7 % Lymph % (Auto) 15.8 % [place] % (Auto) 13.0 % Eos % (Auto) 3.2 % Baso % (Auto) 0.2 % Neut # (Auto) 6.17 (1.4-6.5) K/uL Lymph # (Auto) 1.44 (1.2-3.4) K/uL [place] # (Auto) 1.18 H (0.11-0.59) K/uL Eos # (Auto) 0.29 (0-0.5) K/uL Baso # (Auto) 0.02 (0-0.2) K/uL Immature Gran # (Auto) 0.01 (0.00-0.02) K/uL PT 11.7 (9.0-12.0) Seconds INR 1.2 H (0.9-1.1) APTT (21.0-31.0) Seconds PTT Ratio Sodium 139 (136-145) mmol/L Potassium 4.2 (3.5-5.1) mmol/L Chloride 107 (98-107) mmol/L Carbon Dioxide 27 (21-32) mmol/L Anion Gap 5.0 (3-11) BUN 33 H (7-18) mg/dl Creatinine 1.06 (0.6-1.4) mg/dl Est Cr Clr Drug Dosing 109.5 ml/min Est GFR ( Amer) 84.3 Est GFR (Non-Af Amer) 72.8 BUN/Creatinine Ratio 30.7 H (10-20) Glucose 101 H (70-99) mg/dl POC Glucose (70-99) mg/dl Calcium 8.0 L (8.5-10.1) mg/dl Magnesium (1.8-2.4) mg/dl Ferritin (8-388) ng/ml Vitamin B12 (193-986) pg/ml Folate (>5.38) ng/ml Urine Color Urine Appearance (Clear) Urine pH (4.5-7.5) Ur Specific [place]te (1.000-1.030) Urine Protein (Negative) Urine Glucose (UA) (Negative) Urine Ketones (Negative) Urine Blood (Negative) Urine Nitrite (Negative) Urine Bilirubin (Negative) Urine Urobilinogen (Negative) Ur Leukocyte Esterase (Negative) Stool Occult Bld Scrn (Negative) COVID-19 Eval Order SARS-CoV-2, RNA, NAAT (NEGATIVE) Blood Type Blood Type Recheck Antibody Screen Crossmatch 09/26/20 09/26/20 09/26/20 Range/Units 05:35 08:23 12:14 WBC (4.8-10.8) K/uL RBC (4.7-6.1) M/uL Hgb (14.0-18.0) g/dL Hct (42-52) % MCV (80-100) fL MCH (25-34) pg MCHC (32-36) g/dL RDW Std Deviation (36.4-46.3) fL RDW Coeff of Kimo (11.5-14.5) % Plt Count (130-400) K/uL MPV (7.4-10.4) fL Immature Gran % (Auto) % Neut % (Auto) % Lymph % (Auto) % [place] % (Auto) % Eos % (Auto) % Baso % (Auto) % Neut # (Auto) (1.4-6.5) K/uL Lymph # (Auto) (1.2-3.4) K/uL [place] # (Auto) (0.11-0.59) K/uL Eos # (Auto) (0-0.5) K/uL Baso # (Auto) (0-0.2) K/uL Immature Gran # (Auto) (0.00-0.02) K/uL PT (9.0-12.0) Seconds INR (0.9-1.1) APTT (21.0-31.0) Seconds PTT Ratio Sodium (136-145) mmol/L Potassium (3.5-5.1) mmol/L Chloride (98-107) mmol/L Carbon Dioxide (21-32) mmol/L Anion Gap (3-11) BUN (7-18) mg/dl Creatinine (0.6-1.4) mg/dl Est Cr Clr Drug Dosing ml/min Est GFR ( Amer) Est GFR (Non-Af Amer) BUN/Creatinine Ratio (10-20) Glucose (70-99) mg/dl POC Glucose 109 H 126 H (70-99) mg/dl Calcium (8.5-10.1) mg/dl Magnesium (1.8-2.4) mg/dl Ferritin (8-388) ng/ml Vitamin B12 (193-986) pg/ml Folate (>5.38) ng/ml Urine Color Urine Appearance (Clear) Urine pH (4.5-7.5) Ur Specific [place]te (1.000-1.030) Urine Protein (Negative) Urine Glucose (UA) (Negative) Urine Ketones (Negative) Urine Blood (Negative) Urine Nitrite (Negative) Urine Bilirubin (Negative) Urine Urobilinogen (Negative) Ur Leukocyte Esterase (Negative) Stool Occult Bld Scrn (Negative) COVID-19 Eval Order SARS-CoV-2, RNA, NAAT (NEGATIVE) Blood Type Blood Type Recheck O Positive Antibody Screen Crossmatch 09/26/20 09/26/20 09/26/20 Range/Units 12:53 17:06 21:12 WBC (4.8-10.8) K/uL RBC (4.7-6.1) M/uL Hgb 8.5 L (14.0-18.0) g/dL Hct 25.1 L (42-52) % MCV (80-100) fL MCH (25-34) pg MCHC (32-36) g/dL RDW Std Deviation (36.4-46.3) fL RDW Coeff of Kimo (11.5-14.5) % Plt Count (130-400) K/uL MPV (7.4-10.4) fL Immature Gran % (Auto) % Neut % (Auto) % Lymph % (Auto) % [place] % (Auto) % Eos % (Auto) % Baso % (Auto) % Neut # (Auto) (1.4-6.5) K/uL Lymph # (Auto) (1.2-3.4) K/uL [place] # (Auto) (0.11-0.59) K/uL Eos # (Auto) (0-0.5) K/uL Baso # (Auto) (0-0.2) K/uL Immature Gran # (Auto) (0.00-0.02) K/uL PT (9.0-12.0) Seconds INR (0.9-1.1) APTT (21.0-31.0) Seconds PTT Ratio Sodium (136-145) mmol/L Potassium (3.5-5.1) mmol/L Chloride (98-107) mmol/L Carbon Dioxide (21-32) mmol/L Anion Gap (3-11) BUN (7-18) mg/dl Creatinine (0.6-1.4) mg/dl Est Cr Clr Drug Dosing ml/min Est GFR ( Amer) Est GFR (Non-Af Amer) BUN/Creatinine Ratio (10-20) Glucose (70-99) mg/dl POC Glucose 97 99 (70-99) mg/dl Calcium (8.5-10.1) mg/dl Magnesium (1.8-2.4) mg/dl Ferritin (8-388) ng/ml Vitamin B12 (193-986) pg/ml Folate (>5.38) ng/ml Urine Color Urine Appearance (Clear) Urine pH (4.5-7.5) Ur Specific [place]te (1.000-1.030) Urine Protein (Negative) Urine Glucose (UA) (Negative) Urine Ketones (Negative) Urine Blood (Negative) Urine Nitrite (Negative) Urine Bilirubin (Negative) Urine Urobilinogen (Negative) Ur Leukocyte Esterase (Negative) Stool Occult Bld Scrn (Negative) COVID-19 Eval Order SARS-CoV-2, RNA, NAAT (NEGATIVE) Blood Type Blood Type Recheck Antibody Screen Crossmatch 09/27/20 09/27/20 09/27/20 Range/Units 06:21 06:21 06:21 WBC 8.03 (4.8-10.8) K/uL RBC 2.64 L (4.7-6.1) M/uL Hgb 8.2 L (14.0-18.0) g/dL Hct 24.1 L (42-52) % MCV 91.3 (80-100) fL MCH 31.1 (25-34) pg MCHC 34.0 (32-36) g/dL RDW Std Deviation 47.1 H (36.4-46.3) fL RDW Coeff of Kimo 14.1 (11.5-14.5) % Plt Count 147 (130-400) K/uL MPV 9.3 (7.4-10.4) fL Immature Gran % (Auto) % Neut % (Auto) % Lymph % (Auto) % [place] % (Auto) % Eos % (Auto) % Baso % (Auto) % Neut # (Auto) (1.4-6.5) K/uL Lymph # (Auto) (1.2-3.4) K/uL [place] # (Auto) (0.11-0.59) K/uL Eos # (Auto) (0-0.5) K/uL Baso # (Auto) (0-0.2) K/uL Immature Gran # (Auto) (0.00-0.02) K/uL PT 13.5 H (9.0-12.0) Seconds INR 1.4 H (0.9-1.1) APTT (21.0-31.0) Seconds PTT Ratio Sodium 138 (136-145) mmol/L Potassium 4.6 (3.5-5.1) mmol/L Chloride 107 (98-107) mmol/L Carbon Dioxide 29 (21-32) mmol/L Anion Gap 2.0 L (3-11) BUN 25 H (7-18) mg/dl Creatinine 0.95 (0.6-1.4) mg/dl Est Cr Clr Drug Dosing 122.1 ml/min Est GFR ( Amer) 96.3 Est GFR (Non-Af Amer) 83.1 BUN/Creatinine Ratio 26.4 H (10-20) Glucose 92 (70-99) mg/dl POC Glucose (70-99) mg/dl Calcium 8.2 L (8.5-10.1) mg/dl Magnesium (1.8-2.4) mg/dl Ferritin 480.6 H (8-388) ng/ml Vitamin B12 (193-986) pg/ml Folate (>5.38) ng/ml Urine Color Urine Appearance (Clear) Urine pH (4.5-7.5) Ur Specific Ute (1.000-1.030) Urine Protein (Negative) Urine Glucose (UA) (Negative) Urine Ketones (Negative) Urine Blood (Negative) Urine Nitrite (Negative) Urine Bilirubin (Negative) Urine Urobilinogen (Negative) Ur Leukocyte Esterase (Negative) Stool Occult Bld Scrn (Negative) COVID-19 Eval Order SARS-CoV-2, RNA, NAAT (NEGATIVE) Blood Type Blood Type Recheck Antibody Screen Crossmatch 09/27/20 09/27/20 09/27/20 Range/Units 06:21 08:41 12:13 WBC (4.8-10.8) K/uL RBC (4.7-6.1) M/uL Hgb (14.0-18.0) g/dL Hct (42-52) % MCV (80-100) fL MCH (25-34) pg MCHC (32-36) g/dL RDW Std Deviation (36.4-46.3) fL RDW Coeff of Kimo (11.5-14.5) % Plt Count (130-400) K/uL MPV (7.4-10.4) fL Immature Gran % (Auto) % Neut % (Auto) % Lymph % (Auto) % [place] % (Auto) % Eos % (Auto) % Baso % (Auto) % Neut # (Auto) (1.4-6.5) K/uL Lymph # (Auto) (1.2-3.4) K/uL [place] # (Auto) (0.11-0.59) K/uL Eos # (Auto) (0-0.5) K/uL Baso # (Auto) (0-0.2) K/uL Immature Gran # (Auto) (0.00-0.02) K/uL PT (9.0-12.0) Seconds INR (0.9-1.1) APTT (21.0-31.0) Seconds PTT Ratio Sodium (136-145) mmol/L Potassium (3.5-5.1) mmol/L Chloride (98-107) mmol/L Carbon Dioxide (21-32) mmol/L Anion Gap (3-11) BUN (7-18) mg/dl Creatinine (0.6-1.4) mg/dl Est Cr Clr Drug Dosing ml/min Est GFR ( Amer) Est GFR (Non-Af Amer) BUN/Creatinine Ratio (10-20) Glucose (70-99) mg/dl POC Glucose 106 H 116 H (70-99) mg/dl Calcium (8.5-10.1) mg/dl Magnesium (1.8-2.4) mg/dl Ferritin (8-388) ng/ml Vitamin B12 1351 H (193-986) pg/ml Folate 19.30 (>5.38) ng/ml Urine Color Urine Appearance (Clear) Urine pH (4.5-7.5) Ur Specific Ute (1.000-1.030) Urine Protein (Negative) Urine Glucose (UA) (Negative) Urine Ketones (Negative) Urine Blood (Negative) Urine Nitrite (Negative) Urine Bilirubin (Negative) Urine Urobilinogen (Negative) Ur Leukocyte Esterase (Negative) Stool Occult Bld Scrn (Negative) COVID-19 Eval Order SARS-CoV-2, RNA, NAAT (NEGATIVE) Blood Type Blood Type Recheck Antibody Screen Crossmatch 09/27/20 09/27/20 09/27/20 Range/Units 15:11 17:05 20:35 WBC (4.8-10.8) K/uL RBC (4.7-6.1) M/uL Hgb (14.0-18.0) g/dL Hct (42-52) % MCV (80-100) fL MCH (25-34) pg MCHC (32-36) g/dL RDW Std Deviation (36.4-46.3) fL RDW Coeff of Kimo (11.5-14.5) % Plt Count (130-400) K/uL MPV (7.4-10.4) fL Immature Gran % (Auto) % Neut % (Auto) % Lymph % (Auto) % [place] % (Auto) % Eos % (Auto) % Baso % (Auto) % Neut # (Auto) (1.4-6.5) K/uL Lymph # (Auto) (1.2-3.4) K/uL [place] # (Auto) (0.11-0.59) K/uL Eos # (Auto) (0-0.5) K/uL Baso # (Auto) (0-0.2) K/uL Immature Gran # (Auto) (0.00-0.02) K/uL PT (9.0-12.0) Seconds INR (0.9-1.1) APTT (21.0-31.0) Seconds PTT Ratio Sodium (136-145) mmol/L Potassium (3.5-5.1) mmol/L Chloride (98-107) mmol/L Carbon Dioxide (21-32) mmol/L Anion Gap (3-11) BUN (7-18) mg/dl Creatinine (0.6-1.4) mg/dl Est Cr Clr Drug Dosing ml/min Est GFR ( Amer) Est GFR (Non-Af Amer) BUN/Creatinine Ratio (10-20) Glucose (70-99) mg/dl POC Glucose 95 98 (70-99) mg/dl Calcium (8.5-10.1) mg/dl Magnesium (1.8-2.4) mg/dl Ferritin (8-388) ng/ml Vitamin B12 (193-986) pg/ml Folate (>5.38) ng/ml Urine Color Urine Appearance (Clear) Urine pH (4.5-7.5) Ur Specific [place]te (1.000-1.030) Urine Protein (Negative) Urine Glucose (UA) (Negative) Urine Ketones (Negative) Urine Blood (Negative) Urine Nitrite (Negative) Urine Bilirubin (Negative) Urine Urobilinogen (Negative) Ur Leukocyte Esterase (Negative) Stool Occult Bld Scrn (Negative) COVID-19 Eval Order SARS-CoV-2, RNA, NAAT (NEGATIVE) Blood Type O Positive Blood Type Recheck Antibody Screen NEGATIVE Crossmatch See Detail 09/27/20 09/28/20 09/28/20 Range/Units Unknown 06:25 06:25 WBC 7.35 (4.8-10.8) K/uL RBC 2.85 L (4.7-6.1) M/uL Hgb 8.7 L (14.0-18.0) g/dL Hct 25.9 L (42-52) % MCV 90.9 (80-100) fL MCH 30.5 (25-34) pg MCHC 33.6 (32-36) g/dL RDW Std Deviation 47.0 H (36.4-46.3) fL RDW Coeff of Kimo 14.1 (11.5-14.5) % Plt Count 159 (130-400) K/uL MPV 9.3 (7.4-10.4) fL Immature Gran % (Auto) % Neut % (Auto) % Lymph % (Auto) % [place] % (Auto) % Eos % (Auto) % Baso % (Auto) % Neut # (Auto) (1.4-6.5) K/uL Lymph # (Auto) (1.2-3.4) K/uL [place] # (Auto) (0.11-0.59) K/uL Eos # (Auto) (0-0.5) K/uL Baso # (Auto) (0-0.2) K/uL Immature Gran # (Auto) (0.00-0.02) K/uL PT 14.5 H (9.0-12.0) Seconds INR 1.5 H (0.9-1.1) APTT (21.0-31.0) Seconds PTT Ratio Sodium (136-145) mmol/L Potassium (3.5-5.1) mmol/L Chloride (98-107) mmol/L Carbon Dioxide (21-32) mmol/L Anion Gap (3-11) BUN (7-18) mg/dl Creatinine (0.6-1.4) mg/dl Est Cr Clr Drug Dosing ml/min Est GFR ( Amer) Est GFR (Non-Af Amer) BUN/Creatinine Ratio (10-20) Glucose (70-99) mg/dl POC Glucose (70-99) mg/dl Calcium (8.5-10.1) mg/dl Magnesium (1.8-2.4) mg/dl Ferritin (8-388) ng/ml Vitamin B12 (193-986) pg/ml Folate (>5.38) ng/ml Urine Color Urine Appearance (Clear) Urine pH (4.5-7.5) Ur Specific Ute (1.000-1.030) Urine Protein (Negative) Urine Glucose (UA) (Negative) Urine Ketones (Negative) Urine Blood (Negative) Urine Nitrite (Negative) Urine Bilirubin (Negative) Urine Urobilinogen (Negative) Ur Leukocyte Esterase (Negative) Stool Occult Bld Scrn Negative (Negative) COVID-19 Eval Order SARS-CoV-2, RNA, NAAT (NEGATIVE) Blood Type Blood Type Recheck Antibody Screen Crossmatch 09/28/20 09/28/20 09/28/20 Range/Units 06:25 08:03 11:55 WBC (4.8-10.8) K/uL RBC (4.7-6.1) M/uL Hgb (14.0-18.0) g/dL Hct (42-52) % MCV (80-100) fL MCH (25-34) pg MCHC (32-36) g/dL RDW Std Deviation (36.4-46.3) fL RDW Coeff of Kimo (11.5-14.5) % Plt Count (130-400) K/uL MPV (7.4-10.4) fL Immature Gran % (Auto) % Neut % (Auto) % Lymph % (Auto) % [place] % (Auto) % Eos % (Auto) % Baso % (Auto) % Neut # (Auto) (1.4-6.5) K/uL Lymph # (Auto) (1.2-3.4) K/uL [place] # (Auto) (0.11-0.59) K/uL Eos # (Auto) (0-0.5) K/uL Baso # (Auto) (0-0.2) K/uL Immature Gran # (Auto) (0.00-0.02) K/uL PT (9.0-12.0) Seconds INR (0.9-1.1) APTT (21.0-31.0) Seconds PTT Ratio Sodium 137 (136-145) mmol/L Potassium 4.1 (3.5-5.1) mmol/L Chloride 105 (98-107) mmol/L Carbon Dioxide 27 (21-32) mmol/L Anion Gap 5.0 (3-11) BUN 23 H (7-18) mg/dl Creatinine 0.92 (0.6-1.4) mg/dl Est Cr Clr Drug Dosing 126.1 ml/min Est GFR ( Amer) 100.1 Est GFR (Non-Af Amer) 86.4 BUN/Creatinine Ratio 25.5 H (10-20) Glucose 92 (70-99) mg/dl POC Glucose 107 H 121 H (70-99) mg/dl Calcium 8.5 (8.5-10.1) mg/dl Magnesium (1.8-2.4) mg/dl Ferritin (8-388) ng/ml Vitamin B12 (193-986) pg/ml Folate (>5.38) ng/ml Urine Color Urine Appearance (Clear) Urine pH (4.5-7.5) Ur Specific Ute (1.000-1.030) Urine Protein (Negative) Urine Glucose (UA) (Negative) Urine Ketones (Negative) Urine Blood (Negative) Urine Nitrite (Negative) Urine Bilirubin (Negative) Urine Urobilinogen (Negative) Ur Leukocyte Esterase (Negative) Stool Occult Bld Scrn (Negative) COVID-19 Eval Order SARS-CoV-2, RNA, NAAT (NEGATIVE) Blood Type Blood Type Recheck Antibody Screen Crossmatch (2) Acute blood loss anemia: Total Time Total Time Spent Total Time Spent (In Minutes): 20 Discharge Plan Discharge Items Patient Disposition: Home - Self-Care Reason For Visit: Unilateral Primary Osteoarthritis Hip Right Discharge Diagnosis: Right hip osteoarthritis Activity: Per Instructions section Non-emergency contact: Surgeon Call non-emergency contact if: you have any medication questions, your pain is not controlled, your pain is unusual for you, your pain is concerning for you, you have a fever, your temperature is above 101, your wound has increased redness and your wound has increased drainage Follow-up/Referrals: Piedad Reed MD [Primary Care Provider] - (see Dr Reed within 1 week, or schedule a "virtual" visit to review blood pressures.) Paco Jett MD [Surgeon] - Diet: Carb Consistent or DM2 Addtl Attending Provider Instructions: ACTIVITY RECOMMENDATIONS: SELF CARE INSTRUCTIONS AFTER TOTAL HIP REPLACEMENT Until the incision and soft tissues around your hip have healed, there is a possibility that the hip prosthesis could dislocate. A. Observe the following precautions to prevent dislocation: 1. Don't bend your hip greater than 90 degrees. 2. Avoid crossing your legs or ankles while standing or lying. 3. Sit with your feet placed 6 inches apart. 4. When sitting, keep your knees below your hips. Sit on a firm surface, avoid deep, soft chairs and couches. Use an elevated toilet seat in the bathroom. 5. Don't bend over at the waist. Use a long handled shoehorn and a sock aid to help you put on your shoes and socks. A production troubleshooter can help you mushroom picker objects that are too high or too low to reach. 6. Keep car riding to a minimum for at least one month after surgery. B. Your balance may be shaky for a while. Use crutches or a walker until directed by your doctor. C. Use hand rails when walking on stairs. D. Wear low heeled shoes with non-slip soles. E. Be sure that your floors are free of things that could trip you - throw rugs, electrical cords, small objects. Avoid wet and waxed floors, especially with crutches and canes. F. Try to walk several times a day with rest periods between. G. Continue with all the exercises taught to you in the hospital. Again, make walking a part of your daily routine. SPECIAL CARE INSTRUCTIONS: VERY IMPORTANT TO READ AND REVIEW A. You may still be at risk for phlebitis and blood clots. 1. Wear surgical stockings (ADRIAN hose) for 2 weeks after surgery to improve circulation and reduce swelling. 2. Take Aspirin 81mg twice daily for 4 weeks or as directed by your doctor. This is your blood thinner. 3. High risk patients may be prescribed a stronger blood thinner if necessary. 4. If you are on Coumadin normally, your family doctor/science professor should monitor your blood work. Expect a phone call the day of or the day after bloodwork is drawn to adjust your dosage. B. You must take antibiotics before having dental work, bladder, bowel and other surgery. Your doctor will provide you with a permanent card to carry describing precautions. C. Call [facility] if you have a fever, redness or swelling around the incision, cloudy drainage from incision, or sudden increase in pain in your hip, not relieved by your regular pain medication. D. Please call the office at if you have any concerns or questions about your operation or recovery. * YOU MAY SHOWER, NO TUB BATHS UNTIL CLEARED BY YOUR DOCTOR. * WEAR ADRIAN HOSE 20 HOURS PER DAY FOR 2 WEEKS. * YOU SHOULD USE A WALKER OR CRUTCHES FOR 6 WEEKS. THIS WILL HELP PREVENT STRAIN ON YOUR HIP MUSCLE AND ALLOW IT TO HEAL PROPERLY. YOU MAY WEAN TO A CANE TOLERATED. * MOST PATIENTS WILL HAVE HOME NURSING FOR THERAPY. IF YOU DECIDE TO DO OUTPATIENT PHYSICAL THERAPY, PLEASE SCHEDULE THIS 3 TIMES PER WEEK. This is a large suction dressing covering your incision. This will help pull any excess drainage from the wound and allow your incision to heal properly. You may shower with this if you can keep the unit outside of the shower. If any bleeding or leakage is noted please call your doctor's office. This will remain on your incision for 7 days and then should be removed. This can be done yourself or by the home nursing staff if applicable. The entire unit is disposable once removed. Once removed, keep incision clean and dry. If redness or drainage is noted, please call your surgeon. IF INCISION IS LEAKING THROUGH DRESSING, PLEASE CALL THE OFFICE . FOLLOW UP VISIT: If appointment is not already scheduled: Please call [facility] to make a follow-up appointment for 2 weeks after your surgery at . [employer] Consultant Provider Instructions: From Louis Vinson, Hospitalist: 1. Please stop your valsartan-hydrochlorothiazide blood pressure medication. 2. Please LOWER your metoprolol to 75mg twice daily. New prescription sent to [facility] for you. 3. Take ferrous sulfate (iron) twice daily for 3 months. Know that iron can cause constipation and make your stools look dark. Please have Dr Reed follow your iron levels and blood counts. 4. Ok to take the furosemide water pill on an as needed basis. If you see swelling in your feet/legs you can take the furosemide daily until the swelling is gone. 5. Check your blood pressures daily and report these to Dr Reed. 6. Your INR today is 1.5. Resume your normal coumadin dosing upon return home. Please have your coumadin (warfarin) provider check your INR in 3-4 days from now to ensure the level is between 2 and 3. 7. If you notice that your blood pressures are starting to rise at home (120s/130s or higher) it is ok to stop the metoprolol 75mg twice daily and go back to your normal dosing of 100mg twice daily. 8. Left foot tendonitis - voltaren gel 2 grams to the site of pain up to 4 times daily. This product is now [id number]. Follow-up with orthopedics for this problem. Best wishes for a speedy recovery! - Dr Vinson Pending Studies at Discharge: No Stand-Alone Forms: My [facility] [employer], Smoking Cessation Medications and DC Order Prescriptions: New ferrous sulfate 325 mg (65 mg iron) Tablet,Delayed Release (Dr/Ec) 325 mg PO BID Qty: 60 RF: 0 acetaminophen 500 mg Tablet 1,000 mg PO Q8 Qty: 60 RF: 0 oxycodone 5 mg Tablet 5 - 10 mg PO .Q4h-6h MDD 6 PRN (Reason: pain) Qty: 30 RF: 0 celecoxib [Celebrex] 100 mg capsule 100 mg PO DAILY Qty: 30 RF: 0 cefadroxil 500 mg capsule 500 mg PO BID Qty: 14 RF: 0 diclofenac sodium [Voltaren] 1 % Gel 4 g EXT QID PRN (Reason: left foot pain) Qty: 1 RF: 0 metoprolol tartrate 75 mg tablet 75 mg PO BID Qty: 60 RF: 5 Continued alfuzosin 10 mg tablet extended release 24 hr 10 mg PO HS Qty: 90 RF: 3 warfarin 7.5 mg tablet 7.5 mg PO .COMPLEX Qty: 65 RF: 3 warfarin 10 mg tablet 10 mg PO .COMPLEX Qty: 24 RF: 3 lansoprazole 30 mg capsule,delayed release(DR/EC) 30 mg PO QAM Qty: 90 RF: 3 tadalafil 10 mg tablet 18.5 mg PO DAILY PRN (Reason: sexual activity) Qty: 90 RF: 3 magnesium oxide 400 mg (241.3 mg magnesium) tablet 400 mg PO BID Qty: 180 RF: 3 gabapentin 300 mg capsule 300 mg PO TID Qty: 270 RF: 3 multivitamin [Multiple Vitamins] tablet 1 tab PO QAM RF: 0 cetirizine 10 mg tablet 10 mg PO QAM RF: 0 cholecalciferol (vitamin D3) 1,000 unit (25 mcg) tablet 1,000 units PO QAM RF: 0 atorvastatin 40 mg tablet 40 mg PO HS Qty: 90 RF: 3 famotidine 40 mg tablet 40 mg PO QPM RF: 0 docusate sodium [Stool Softener] 100 mg Capsule 100 mg PO BID RF: 0 Changed furosemide [Lasix] 20 mg tablet 20 mg PO QAM PRN (Reason: swelling of feet/legs) Qty: 1 RF: 0 Discontinued meloxicam 7.5 mg tablet 7.5 mg PO DAILY PRN (Reason: joint pain) Qty: 90 RF: 1 valsartan-hydrochlorothiazide 160-12.5 mg tablet 1 tab PO QAM RF: 0 acetaminophen [Tylenol Extra Strength] 500 mg Tablet 1,500 mg PO Q6H PRN (Reason: Pain) RF: 0 Discharge Orders: Discharge Order (Routine); Ordered 09/28/20 Ordered By: Julio César Starks Admission Data Admit Date/Time: 09/27/20 22:16 Attending Provider: Paco Jett Admit Provider: Paco Jett Primary Care Provider: Piedad Reed Other Providers: Siuta,Louis R ; Covaleski,Geoff E. Other Interventions: Discharge Summary Assessment (RN) Last Done: 09/28/20 13:06
== END 2020-09-28 16:11 | disposition home or self-care (01) | DRG 470 ==
LOC: ASU 09:49 → 3N 09:49

== ENCOUNTER 2021-06-24 07:27 | Inpatient (IN) ==
[2021-06-24] MEDS ORDERED: HYDROmorphone INJ 0.5 MG/0.5 ML SYR IV STA (07:55)
--- NOTE | 2021-06-24 08:13 | Emergency Department Note ---
Impression & Plan Spinal stenosis, Lumbar radiculopathy, Leg weakness, bilateral, Bilateral leg paresthesia, Urinary incontinence ED Provider Note CHIEF COMPLAINT: Lower back pain with neurological deficits HISTORY OF PRESENT ILLNESS: Charlie Hamlin is a 65 year old male with history of atrial fibrillation on Coumadin, DM2, DLD, HTN, CIRA on CPAP, Woodard's esophagus, OA, polyneuropathy and spinal stenosis among others listed below who presents to the Emergency Department for evaluation of pain to his mid-lower back with associated numbness/tingling and weakness to his bilateral legs as well as urinary incontinence which has been worsening over the past 2 weeks. The patient has known history of spinal stenosis and states that he has been experiencing ongoing mid-lower back pain with the neurological deficits as noted over the past several months. He has been following with Dr. Toure of Orthopedic spine for his symptoms and was scheduled to have posterior L2-S1 decompression and fusion, possible T11-S1 decompression today, however his surgery was cancelled due to the pandemic. The patient denies sustaining any new falls or injuries to his back, however, as his symptoms have continued to become worse over the past 2 weeks with more severe back pain this morning, he was instructed by Dr. Toure to come to the ED for further evaluation. When the patient woke up this morning, he rated his pain as a 10/10, now down to a 7/10. No relief after taking Tylenol. He has not been taking any other medications for his symptoms. He otherwise denies pain to his neck or upper back, no numbness/tingling or weakness to his arms. He also denies recent fevers/chills, chest pain, shortness of breath, abdominal pain, nausea or vomiting. He is able to control his bowels but has incontinence of his bladder, also worsening over the past 2 weeks as well. The patient is normally on Coumadin for his history of A-fib but has not taken it for the past 7-10 days in preparation for his surgery. REVIEW OF SYSTEMS: 10 systems were reviewed and were negative unless otherwise stated in HPI as above PHYSICAL EXAM: VITALS: Vitals are noted on the nurse's note and reviewed by myself. Hypertensive, vital signs otherwise stable. General: Resting in bed, no acute distress HEENT: Normocephalic, atraumatic, PERRL, EOMI, mucous membranes moist, oropharynx clear Neck: No mid-line cervical tenderness, ROM intact without pain Resp: Good inspiratory effort on room air, lung sounds clear bilaterally CV: Irregularly irregular rate and rhythm, peripheral pulses palpated Back: Tenderness to palpation over the midline mid-lower spine, no obvious step- offs or deformities Abd: Obese, soft, non-tender to palpation MSK: No tenderness to palpation of the BUE, moving these extremities without apparent pain or difficulty, sensation and radial pulses intact. Mild tenderness to palpation over the BLE, notes numbness/tingling from the mid thigh down to the toes, ROM of the BLE limited with decreased strength, left more weak than right, d/p pulses intact Neuro: Awake, alert, interacting and answering questions appropriately Differential diagnosis includes spinal canal stenosis, lumbar radiculopathy, spinal cord injury, cauda equina, among others were considered. EMERGENCY DEPARTMENT COURSE: Physical exam and history were performed. Nursing triage notes, EMR, and medication list were personally reviewed. Patient appears to have pain to his mid-lower back with associated numbness/tingling and weakness to his bilateral legs as well as urinary incontinence which has been worsening over the past 2 weeks. The patient has known history of spinal stenosis and states that he has been experiencing duane oing mid-lower back pain with the neurological deficits as noted over the past several months. He has been following with Dr. Toure of Orthopedic spine for his symptoms and was scheduled to have posterior L2-S1 decompression and fusion, possible T11-S1 decompression today, however his surgery was cancelled due to the pandemic. The patient denies sustaining any new falls or injuries to his back, however, as his symptoms have continued to become worse over the past 2 weeks with more severe back pain this morning, he was instructed by Dr. Toure to come to the ED for further evaluation. The patient was offered pain medication. IV access was established and he was given 0.5 mg of Dilaudid with improvement of pain. Dr. Toure was contacted and did agreed to admit the patient for further management. The patient verbalized understanding and agreement with this treatment plan. The chart was completed utilizing [employer] Access Recognition Software. Grammatical errors, random word insertions, pronoun errors, and incomplete sentences are an occasional consequence of this system due to software limitations, ambient noise, and hardware issues. Any formal questions or concerns about the content, text, or information contained within the body of this dictation should be directly addressed to the provider for clarification. Past Med/Surg History Medical History Anemia on iron supplementation Atrial fibrillation, permanent Follows with Dr. Gama; on warfarin Woodard's esophagus Benign localized hyperplasia of prostate with urinary obstruction Benign positional vertigo last episode > 1 yr ago Cardiomegaly DM type 2 (diabetes mellitus, type 2) diet controlled Dyslipidemia Esophageal reflux controlled, stable per pt Hypertension controlled, stable per pt Mild CAD 03/2020 - heart cath by Dr Christiano Zhu; nonobstructive CAD Morbid obesity with BMI of 40.0-44.9, adult CIRA on CPAP 100% compliant. Osteoarthritis Polyneuropathy Surgical History History of esophagogastroduodenoscopy (EGD) History of left hip replacement History of right hip replacement 09/24/2020: SAB at L3-L4, 2 attempts. No issues per anesthesia postop progress note. Hx of laparoscopic gastric banding 2009 S/P cardiac cath 03/2020 [place] - no stents/angioplasty S/P colonoscopy S/P knee replacement bilateral left 04/23/2019: SAB at L4-L5, 2 attempts + PNB. No issues per anesthesia postop progress note. S/P rotator cuff repair RIGHT/LEFT right 08/22/2017: Grade 1 view, MAC#4, ETT#8.0 atraumatic x 1 + PNB. No issues per anesthesia postop progress note. Family History Father Heart disease Lung disease Myocardial infarction Mother Hypertension Uterine cancer Other Diabetes Social History Smoking Status: Former smoker Number of Years Since Quit: 35; Second Hand Exposure: No; Do You Dip or Chew Tobacco: No; Tobacco Cessation Education Requested by Patient: No Hx Alcohol Use: Yes Alcohol type: beer Hx Substance Use: No Preferred Language: Ethiopian Communication Ability: Effective Visual Impairment: No Limitations Lightning Rod Installer Required: No Beliefs That Will Affect Care: None marital status: Current Living Situation: Spouse Current Living Situation Comment: lives in [place] current occupational status: retired 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 How many Children do You have: 6 How many Children do You have Comment: 3 biological children; 3 step-children Other Information That Helps Us Care for You: No Feels Safe at Home: Yes Safety Concerns: Feels Safe At This Time Seatbelt Use: always Assistive Devices: CPAP, Denture - Upper, Denture - Lower, Glasses and Walker Allergies Allergies Allergy/AdvReac Type Severity Reaction Status Date / Time hydrochlorothiazide Allergy Mild Hypotension Verified 06/24/21 08:27 [From Aldoril D30] methyldopa [From Aldoril D30] Allergy Mild Hypotension Verified 06/24/21 08:27 Home Meds Home Medications Medication Instructions Recorded Confirmed cetirizine 10 mg tablet 10 mg PO QAM 03/20/19 06/24/21 cholecalciferol (vitamin D3) 25 1,000 units PO QAM 03/20/19 06/24/21 mcg (1,000 unit) tablet multivitamin (Multiple Vitamins) 1 tab PO QAM 03/20/19 06/24/21 docusate sodium 100 mg capsule 100 mg PO BID 08/14/20 06/24/21 (Stool Softener) metoprolol tartrate 100 mg tablet See Rx Instructions PO .COMPLEX 12/02/20 06/24/21 alfuzosin 10 mg tablet,extended 10 mg PO QPM 05/28/21 06/24/21 release 24 hr celecoxib 100 mg capsule (Celebrex) 100 mg PO QAM 05/28/21 06/24/21 Previous Rx's Medication Instructions Recorded magnesium oxide 400 mg (241.3 mg 400 mg PO BID #180 tab 01/17/19 magnesium) tablet warfarin 10 mg tablet 10 mg PO .COMPLEX #24 tab 04/25/20 tadalafil 10 mg tablet 18.5 mg PO DAILY PRN #90 tab 09/04/20 ferrous sulfate 325 mg (65 mg 325 mg PO BID #60 tab 09/26/20 iron) tablet,delayed release diclofenac sodium 1 % topical gel 4 g EXT QID PRN #1 tube 09/28/20 (Voltaren) furosemide 20 mg tablet (Lasix) 20 mg PO QAM #60 tab 12/02/20 atorvastatin 40 mg tablet 40 mg PO HS #90 tab 02/02/21 lansoprazole 30 mg capsule,delayed 30 mg PO QAM #90 cap 02/04/21 release famotidine 40 mg tablet 40 mg PO QPM #90 tab 04/08/21 gabapentin 300 mg capsule 300 mg PO TID #270 cap 04/08/21 warfarin 7.5 mg tablet 7.5 mg PO .COMPLEX #65 tab 05/19/21 Results & Data (ED) Vital Signs Vital Signs - 24 hr 06/24/21 07:31 06/24/21 08:49 06/24/21 10:43 Temperature 36.9 C Temperature Source Oral Pulse Rate 76 Pulse Rate [Finger] 71 68 Pulse Rhythm Regular Pulse Strength Normal Respiratory Rate 20 20 20 Respiratory Effort / Characteristics Non-Labored Spontaneous Respiratory Depth Normal Respiratory Pattern Regular Blood Pressure 159/94 H Blood Pressure [Left Arm] 119/77 113/75 Blood Pressure Mean 115 Blood Pressure Mean [Left Arm] 91 87 Blood Pressure Position Sitting Pulse Oximetry 96 94 94 Oxygen Delivery Method Room Air Room Air Room Air Sepsis Recent Fever Within 48 Hours No Sepsis New/Unexplained Change in Mental Status No Sepsis Action Taken by Nursing No Action Required 06/24/21 12:18 06/24/21 14:17 Temperature Temperature Source Pulse Rate Pulse Rate [Finger] 64 76 Pulse Rhythm Pulse Strength Respiratory Rate 16 20 Respiratory Effort / Characteristics Respiratory Depth Respiratory Pattern Blood Pressure Blood Pressure [Left Arm] 118/88 128/86 Blood Pressure Mean Blood Pressure Mean [Left Arm] 98 100 Blood Pressure Position Pulse Oximetry 95 97 Oxygen Delivery Method Room Air Room Air Sepsis Recent Fever Within 48 Hours Sepsis New/Unexplained Change in Mental Status Sepsis Action Taken by Nursing Laboratory Data Result diagrams: 06/26/21 15:11 06/24/21 08:10 Lab Results 06/24/21 06/24/21 06/24/21 Range/Units 08:10 08:10 08:10 WBC 10.76 (4.8-10.8) K/uL RBC 4.16 L (4.7-6.1) M/uL Hgb 12.8 L (14.0-18.0) g/dL Hct 38.8 L (42-52) % MCV 93.3 (80-100) fL MCH 30.8 (25-34) pg MCHC 33.0 (32-36) g/dL RDW Std Deviation 47.2 H (36.4-46.3) fL RDW Coeff of Kimo 13.8 (11.5-14.5) % Plt Count 227 (130-400) K/uL MPV 9.1 (7.4-10.4) fL Immature Gran % (Auto) 0.2 % Neut % (Auto) 74.3 % Lymph % (Auto) 12.1 % [place] % (Auto) 7.1 % Eos % (Auto) 5.8 % Baso % (Auto) 0.5 % Neut # (Auto) 8.01 H (1.4-6.5) K/uL Lymph # (Auto) 1.30 (1.2-3.4) K/uL [place] # (Auto) 0.76 H (0.11-0.59) K/uL Eos # (Auto) 0.62 H (0-0.5) K/uL Baso # (Auto) 0.05 (0-0.2) K/uL Immature Gran # (Auto) 0.02 (0.00-0.02) K/uL PT 10.5 (9.0-12.0) Seconds INR 1.0 (0.9-1.1) APTT 26.3 (21.0-31.0) Seconds PTT Ratio 1.0 Sodium 136 (136-145) mmol/L Potassium 4.1 (3.5-5.1) mmol/L Chloride 104 (98-107) mmol/L Carbon Dioxide 25 (21-32) mmol/L Anion Gap 7 (3-11) BUN 39 H (6-23) mg/dl Creatinine 0.92 (0.6-1.4) mg/dl Est Cr Clr Drug Dosing 139.6 ml/min Est GFR ( Amer) 100.1 ml/min Est GFR (Non-Af Amer) 86.4 ml/min BUN/Creatinine Ratio 42.4 H (10-20) Glucose 107 H (70-99(Fasting)) mg/dl Calcium 9.1 (8.5-10.1) mg/dl Total Bilirubin 0.5 (0.2-1.0) mg/dl AST 17 (13-39) U/L ALT 14 (7-52) U/L Alkaline Phosphatase 66 (34-104) U/L Total Protein 6.9 (6.0-8.3) gm/dl Albumin 4.1 (3.4-5.0) gm/dl Globulin 2.8 (2.5-4.0) gm/dl Albumin/Globulin Ratio 1.5 (0.9-2) SARS-CoV-2, RNA, NAAT (NEGATIVE) 06/24/21 Range/Units 08:10 WBC (4.8-10.8) K/uL RBC (4.7-6.1) M/uL Hgb (14.0-18.0) g/dL Hct (42-52) % MCV (80-100) fL MCH (25-34) pg MCHC (32-36) g/dL RDW Std Deviation (36.4-46.3) fL RDW Coeff of Kimo (11.5-14.5) % Plt Count (130-400) K/uL MPV (7.4-10.4) fL Immature Gran % (Auto) % Neut % (Auto) % Lymph % (Auto) % [place] % (Auto) % Eos % (Auto) % Baso % (Auto) % Neut # (Auto) (1.4-6.5) K/uL Lymph # (Auto) (1.2-3.4) K/uL [place] # (Auto) (0.11-0.59) K/uL Eos # (Auto) (0-0.5) K/uL Baso # (Auto) (0-0.2) K/uL Immature Gran # (Auto) (0.00-0.02) K/uL PT (9.0-12.0) Seconds INR (0.9-1.1) APTT (21.0-31.0) Seconds PTT Ratio Sodium (136-145) mmol/L Potassium (3.5-5.1) mmol/L Chloride (98-107) mmol/L Carbon Dioxide (21-32) mmol/L Anion Gap (3-11) BUN (6-23) mg/dl Creatinine (0.6-1.4) mg/dl Est Cr Clr Drug Dosing ml/min Est GFR ( Amer) ml/min Est GFR (Non-Af Amer) ml/min BUN/Creatinine Ratio (10-20) Glucose (70-99(Fasting)) mg/dl Calcium (8.5-10.1) mg/dl Total Bilirubin (0.2-1.0) mg/dl AST (13-39) U/L ALT (7-52) U/L Alkaline Phosphatase (34-104) U/L Total Protein (6.0-8.3) gm/dl Albumin (3.4-5.0) gm/dl Globulin (2.5-4.0) gm/dl Albumin/Globulin Ratio (0.9-2) SARS-CoV-2, RNA, NAAT NEGATIVE (NEGATIVE) Administered Medications Alfuzosin HCl (Alfuzosin Hcl 10 Mg Tab) 10 mg PO QPM [facility] Stop: 07/24/21 20:59 Last Admin: 06/26/21 21:55 Dose: 10 mg Documented by: [id number] Admin: 06/25/21 20:16 Dose: 10 mg Documented by: [id number] Admin: 06/24/21 20:29 Dose: 10 mg Documented by: [id number] Atorvastatin Calcium (Atorvastatin 40 Mg Tab) 40 mg PO HS [facility] Stop: 07/24/21 20:59 Last Admin: 06/26/21 21:55 Dose: 40 mg Documented by: [id number] Admin: 06/25/21 20:17 Dose: 40 mg Documented by: [id number] Admin: 06/24/21 20:29 Dose: 40 mg Documented by: [id number] Cetirizine HCl (Cetirizine Hcl 10 Mg Tablet) 10 mg PO QAM [facility] Stop: 07/25/21 08:59 Last Admin: 06/26/21 07:50 Dose: Not Given Documented by: [id number] Admin: 06/25/21 08:58 Dose: 10 mg Documented by: [id number] Famotidine (Famotidine 40 Mg Tablet) 40 mg PO QPM [facility] Stop: 07/24/21 20:59 Last Admin: 06/26/21 21:55 Dose: 40 mg Documented by: [id number] Admin: 06/25/21 20:16 Dose: 40 mg Documented by: [id number] Admin: 06/24/21 20:30 Dose: 40 mg Documented by: [id number] Ferrous Sulfate (Ferrous Sulfate 325 Mg Tab) 325 mg PO BID [facility] Stop: 07/24/21 20:59 Last Admin: 06/26/21 21:55 Dose: 325 mg Documented by: [id number] Admin: 06/26/21 07:50 Dose: Not Given Documented by: [id number] Admin: 06/25/21 20:16 Dose: 325 mg Documented by: [id number] Admin: 06/25/21 08:58 Dose: 325 mg Documented by: [id number] Admin: 06/24/21 20:30 Dose: 325 mg Documented by: [id number] Gabapentin (Gabapentin 300 Mg Cap) 300 mg PO TID [facility] Stop: 07/24/21 20:59 Last Admin: 06/26/21 21:56 Dose: 300 mg Documented by: [id number] Admin: 06/26/21 16:36 Dose: Not Given Documented by: [id number] Admin: 06/26/21 07:48 Dose: 300 mg Documented by: [id number] Admin: 06/25/21 20:16 Dose: 300 mg Documented by: [id number] Admin: 06/25/21 13:30 Dose: 300 mg Documented by: [id number] Admin: 06/25/21 08:59 Dose: 300 mg Documented by: [id number] Admin: 06/24/21 20:30 Dose: 300 mg Documented by: [id number] Cefazolin Sodium (Ancef 2000mg) 2,000 mg in 15 mls @ 3.75 mls/min IV Q8H [facility]; Protocol Stop: 06/27/21 02:03 Last Admin: 06/26/21 17:33 Dose: 3.75 mls/min Documented by: [id number] Lactated Ringer's (Lr) 1,000 mls @ 75 mls/hr IV .[id number] [facility] Stop: 07/26/21 16:06 Last Admin: 06/26/21 16:23 Dose: 75 mls/hr Documented by: [id number] Ketorolac Tromethamine (Ketorolac Tromethamine 15 Mg/Ml Vial) 15 mg IV Q6H [facility] Stop: 06/27/21 12:01 Last Admin: 06/26/21 17:33 Dose: 15 mg Documented by: [id number] Magnesium Oxide (Magnesium Oxide 400 Mg Tab) 400 mg PO BID [facility] Stop: 07/24/21 20:59 Last Admin: 06/26/21 21:56 Dose: 400 mg Documented by: [id number] Admin: 06/26/21 07:50 Dose: Not Given Documented by: [id number] Admin: 06/25/21 20:17 Dose: 400 mg Documented by: [id number] Admin: 06/25/21 08:59 Dose: 400 mg Documented by: [id number] Admin: 06/24/21 20:30 Dose: 400 mg Documented by: [id number] Metoprolol Tartrate (Metoprolol Tartrate 100 Mg Tab) 100 mg PO QAM [facility] Stop: 07/25/21 08:59 Last Admin: 06/26/21 07:48 Dose: 100 mg Documented by: [id number] Admin: 06/25/21 08:59 Dose: 100 mg Documented by: [id number] Metoprolol Tartrate (Metoprolol Tartrate 50 Mg Tab) 50 mg PO QPM [facility] Stop: 07/24/21 20:59 Last Admin: 06/26/21 21:56 Dose: 50 mg Documented by: [id number] Admin: 06/25/21 20:17 Dose: 50 mg Documented by: [id number] Admin: 06/24/21 20:29 Dose: 50 mg Documented by: [id number] [facility]ivit[facility] ([facility]ivitamin Tab) [facility] [place]: 07/25/21 08:59 Last Admin: 06/26/21 07:50 Dose: Not Given Documented by: [id number] Admin: 06/25/21 08:59 Dose: 1 tab Documented by: [id number] Oxycodone HCl (Oxycodone Hcl Ir 5 Mg Tab (Immediate Release)) 5 - 10 mg PO Q4H PRN PRN Reason: Pain & Pre PT Stop: 07/10/21 16:06 Last Admin: 06/26/21 22:00 Dose: 10 mg Documented by: [id number] Admin: 06/26/21 16:22 Dose: 5 mg Documented by: [id number] Pantoprazole Sodium (Pantoprazole 40 Mg Tab) [facility] [place]: 07/25/21 08:59 Last Admin: 06/26/21 07:48 Dose: 40 mg Documented by: [id number] Admin: 06/25/21 08:59 Dose: 40 mg Documented by: [id number] Senna/Docusate Sodium (Docusate Sodium/Senna 50/8.6mg Tab) 2 tab PO HS [facility] Stop: 07/26/21 20:59 Last Admin: 06/26/21 21:55 Dose: 2 tab Documented by: [id number] Vitamin D (Cholecalciferol 1,000 Units 25 Mcg Tab) 1,000 [facility] [place]: 07/25/21 08:59 Last Admin: 06/26/21 07:50 Dose: Not Given Documented by: [id number] Admin: 06/25/21 08:58 Dose: 1,000 units Documented by: [id number] Discontinued Medications Acetaminophen (Acetaminophen 500 Mg Tab) 1,000 mg PO Q8H PRN PRN Reason: MILD Pain Scale 1,2,3 & Pre PT Stop: 07/24/21 16:14 Last Admin: 06/25/21 23:26 Dose: 1,000 mg Documented by: [id number] Admin: 06/24/21 23:20 Dose: 1,000 mg Documented by: [id number] Bupivacaine HCl (Bupivacaine 0.5 % 5 Mg/1 Ml Mpf 30ml Vial) Confirm Administered Dose 30 ml .ROUTE .STK-MED ONE Stop: 06/26/21 09:50 Last Admin: 06/26/21 11:35 Dose: 40 ml Documented by: [id number] Cefazolin Sodium (Cefazolin 250 Mg/Ml 1 Gm Vial) Confirm Administered Dose 1,000 mg .ROUTE .STK-MED ONE Stop: 06/26/21 09:50 Last Admin: 06/26/21 11:35 Dose: 1,000 mg Documented by: [id number] Epinephrine HCl (Epinephrine Inj 1 Mg/Ml Amp) Confirm Administered Dose 1 mg .ROUTE .STK-MED ONE Stop: 06/26/21 09:50 Last Admin: 06/26/21 11:36 Dose: 0.3 mg Documented by: [id number] Hydromorphone HCl (Hydromorphone Inj 0.5 Mg/0.5 Ml Syr) 0.5 mg IV NOW STA Stop: 06/24/21 07:56 Last Admin: 06/24/21 08:12 Dose: 0.5 mg Documented by: [id number] Sodium Chloride (Nss 1000ml) 1,000 mls @ 75 mls/hr IV .[id number] [facility] Stop: 07/24/21 16:14 Last Infusion: 06/26/21 16:23 Dose: 0 mls/hr Documented by: [id number] Admin: 06/26/21 07:48 Dose: 75 mls/hr Documented by: [id number] Infusion: 06/26/21 07:48 Dose: 75 mls/hr Documented by: [id number] Admin: 06/25/21 19:21 Dose: 75 mls/hr Documented by: [id number] Infusion: 06/25/21 19:21 Dose: 75 mls/hr Documented by: [id number] Admin: 06/25/21 06:01 Dose: 75 mls/hr Documented by: [id number] Infusion: 06/25/21 06:01 Dose: 75 mls/hr Documented by: [id number] Admin: 06/24/21 17:09 Dose: 75 mls/hr Documented by: [id number] Cefazolin Sodium (Ancef 3000mg) 72.5 mls @ 130 mls/hr IV PREOP [facility]; Protocol Stop: 06/26/21 05:59 Last Infusion: 06/26/21 16:23 Dose: 0 mls/hr Documented by: [id number] Admin: 06/26/21 10:16 Dose: 130 mls/hr Documented by: [id number] Miscellaneous ( Floseal Hemostatic Matrix 10ml) 0 ml TOP ONCE ONE Stop: 06/26/21 11:37 Last Admin: 06/26/21 14:09 Dose: 62 ml Documented by: [id number] Discharge Plan Visit Data Chief Complaint: Back Injury/Pain Stated Complaint: LWR BACK PAIN INTO BOTH LEGS-LEG NUMBNESS ED Provider: Mathew Mcmahan ED Midlevel Provider: Josie Yang Discharge Problem: Spinal stenosis, Lumbar radiculopathy, Leg weakness, bilateral, Bilateral leg paresthesia, Urinary incontinence Patient Disposition: Admitted As Inpatient Discharge Instructions Interventions: ED Discharge Assessment Last Done: 06/24/21 16:20 Addendum June 26, 2021 23:00 HPI: The patient is a 65 y/o gentleman with a pmhx of HTN, HLD, afib on warfarin, DM2, CIRA on CPAP, OA, neuropathy and spinal stenosis who presents to the emergency department for continued/worsening mid-lower back pain with associated paraesthesias to BLE over the past 2 weeks. No loss of bowl control. He reports intermittent urinary incontinence. He has a history of BPH. He was scheduled to have surgery but was canceled/postponed. He was referred to ED for worsening sx. Denies recent illness. A/P: Lumbar stenosis with neurogenic claudication. Appreciate ortho-spine, Dr. Toure, consultation. They will admit the patient with plan for OR. I reviewed the patient's past medical history, medications, and visit nursing notes. I discussed the case with the physician visitor use assistant and agree with the findings and plan as documented in PAC Scheiner's note.
[2021-06-24 08:21] LABS: Basophils # (auto) 0.05 K/uL (0-0.2); Basophils % (auto) 0.5 %; Eosinophils # (auto) 0.62 K/uL (0-0.5); Eosinophils % (auto) 5.8 %; Hematocrit (blood only) 38.8 % (42-52); Hemoglobin 12.8 g/dL (14.0-18.0); Immature Granulocytes # (auto) 0.02 K/uL (0.00-0.02); Immature Granulocytes % (auto) 0.2 %; Lymphocytes % (auto) 12.1 %; Mean Corpuscular Hemoglobin 30.8 pg (25-34); Mean Corpuscular Volume 93.3 fL (80-100); Mean Platelet Volume 9.1 fL (7.4-10.4); Monocytes # (auto) 0.76 K/uL (0.11-0.59); Monocytes % (auto) 7.1 %; Neutrophils # (auto) 8.01 K/uL (1.4-6.5); Neutrophils % (auto) 74.3 %; Platelet Count 227 K/uL (130-400); RDW Coefficient of Variation 13.8 % (11.5-14.5); RDW Standard Deviation 47.2 fL (36.4-46.3); Red Blood Count 4.16 M/uL (4.7-6.1); White Blood Count 10.76 K/uL (4.8-10.8)
[2021-06-24 08:45] LABS: Albumin Globulin Ratio 1.5 (0.9-2); Albumin Level 4.1 gm/dl (3.4-5.0); BUN Creatinine Ratio 42.4 (10-20); Bilirubin,Total 0.5 mg/dl (0.2-1.0); Calcium 9.1 mg/dl (8.5-10.1); Creatinine Clr Calc Pharmacy 139.6 ml/min; Est GFR (African American) 100.1 ml/min; Est GFR (Non-African American) 86.4 ml/min; Globulin 2.8 gm/dl (2.5-4.0); Potassium 4.1 mmol/L (3.5-5.1); Total Protein 6.9 gm/dl (6.0-8.3)
[2021-06-24 08:50] LABS: Partial Thromboplastin Time 26.3 Seconds (21.0-31.0); Prothrombin Time 10.5 Seconds (9.0-12.0)
--- NOTE | 2021-06-24 15:31 | History & Physical Report ---
Date of Service June 24, 2021 Assessment & Plan (1) Lumbar stenosis with neurogenic claudication: Plan: Patient presents to the emergency room today with a decline in his status over the past 2 weeks or so including a new change with intermittent urinary incontinence. His balance is progressively worsening as well. HE has known severe thoracolumbar stenosis. Patient is being admitted to Dr. Toure service. He has held his Coumadin in anticipation of surgery today which is ultimately canceled. INR is 1.0 in the ER today. We will admit him for pain control. We will proceed with surgical intervention as soon as possible. Planned procedure is T11-S1 decompression and instrumented fusion. Risk, benefits, pros cons and alternative outlined in detail. All questions have been reviewed to the patient and his in detail as well. Patient is seen PCP and information technology account manager preoperatively. History of Present Illness Chief Complaint: Bilateral lower extremity numbness and weakness Primary Care Provider: Piedad Reed MD Is a very pleasant 65-year-old gentleman who presents to the emergency room for evaluation. He is a known patient to us. He is actually scheduled for prior thoracolumbar decompression instrumented fusion today by Dr. Toure. Unfortunately this was canceled due to the pandemic, bed availability. He has had ongoing symptoms for several months. Initially he states in the summertime he was noting many falls. He was ambulating with a cane at that point. His Symptoms progressively worsened. Now he is ambulating with a walker all the time. Patient's is with him today and reports he is actually not very ambulatory because of above-mentioned complaints. He has bilateral lower extremity numbness, pain, weakness. He is progressively worsening over the past few weeks. Balance is also progressively worsening also. He now notes new urinary incontinence over the past 2 weeks. Denies perineum numbness. Denies bowel changes plate. He is trialed physical therapy in the past without improvement. Within the past month he has seen both Dr. Zhu for his ca rdiac issues as well as Dr. Reed his PCP preoperatively. Allergies Allergy/AdvReac Type Severity Reaction Status Date / Time hydrochlorothiazide Allergy Mild Hypotension Verified 06/24/21 08:27 [From Aldoril D30] methyldopa [From Aldoril D30] Allergy Mild Hypotension Verified 06/24/21 08:27 Home Medications Medication Instructions Recorded Confirmed Type magnesium oxide 400 mg (241.3 mg 400 mg PO BID #180 tab 01/17/19 06/24/21 Rx magnesium) tablet cetirizine 10 mg tablet 10 mg PO QAM 03/20/19 06/24/21 History cholecalciferol (vitamin D3) 25 1,000 units PO QAM 03/20/19 06/24/21 History mcg (1,000 unit) tablet multivitamin (Multiple Vitamins) 1 tab PO QAM 03/20/19 06/24/21 History warfarin 10 mg tablet 10 mg PO .COMPLEX #24 tab 04/25/20 06/24/21 Rx docusate sodium 100 mg capsule 100 mg PO BID 08/14/20 06/24/21 History (Stool Softener) tadalafil 10 mg tablet 18.5 mg PO DAILY PRN #90 tab 09/04/20 06/24/21 Rx ferrous sulfate 325 mg (65 mg 325 mg PO BID #60 tab 09/26/20 06/24/21 Rx iron) tablet,delayed release diclofenac sodium 1 % topical gel 4 g EXT QID PRN #1 tube 09/28/20 06/24/21 Rx (Voltaren) furosemide 20 mg tablet (Lasix) 20 mg PO QAM #60 tab 12/02/20 06/24/21 Rx metoprolol tartrate 100 mg tablet See Rx Instructions PO .COMPLEX 12/02/20 06/24/21 History atorvastatin 40 mg tablet 40 mg PO HS #90 tab 02/02/21 06/24/21 Rx lansoprazole 30 mg capsule,delayed 30 mg PO QAM #90 cap 02/04/21 06/24/21 Rx release famotidine 40 mg tablet 40 mg PO QPM #90 tab 04/08/21 06/24/21 Rx gabapentin 300 mg capsule 300 mg PO TID #270 cap 04/08/21 06/24/21 Rx warfarin 7.5 mg tablet 7.5 mg PO .COMPLEX #65 tab 05/19/21 06/24/21 Rx alfuzosin 10 mg tablet,extended 10 mg PO QPM 05/28/21 06/24/21 History release 24 hr celecoxib 100 mg capsule (Celebrex) 100 mg PO QAM 05/28/21 06/24/21 History Past Med/Surg History Medical History Anemia on iron supplementation Atrial fibrillation, permanent Follows with Dr. Gama; on warfarin Woodard's esophagus Benign localized hyperplasia of prostate with urinary obstruction Benign positional vertigo last episode > 1 yr ago Cardiomegaly DM type 2 (diabetes mellitus, type 2) diet controlled Dyslipidemia Esophageal reflux controlled, stable per pt Hypertension controlled, stable per pt Mild CAD 03/2020 - heart cath by Dr Christiano Zhu; nonobstructive CAD Morbid obesity with BMI of 40.0-44.9, adult CIRA on CPAP 100% compliant. Osteoarthritis Polyneuropathy Surgical History History of esophagogastroduodenoscopy (EGD) History of left hip replacement History of right hip replacement 09/24/2020: SAB at L3-L4, 2 attempts. No issues per anesthesia postop progress note. Hx of laparoscopic gastric banding 2009 S/P cardiac cath 03/2020 [place] - no stents/angioplasty S/P colonoscopy S/P knee replacement bilateral left 04/23/2019: SAB at L4-L5, 2 attempts + PNB. No issues per anesthesia postop progress note. S/P rotator cuff repair RIGHT/LEFT right 08/22/2017: Grade 1 view, MAC#4, ETT#8.0 atraumatic x 1 + PNB. No issues per anesthesia postop progress note. Family History Father Heart disease Lung disease Myocardial infarction Mother Hypertension Uterine cancer Other Diabetes Social History Smoking Status: Former smoker Number of Years Since Quit: 35; Second Hand Exposure: No; Do You Dip or Chew Tobacco: No; Tobacco Cessation Education Requested by Patient: No Hx Alcohol Use: Yes Alcohol type: beer Hx Substance Use: No Preferred Language: Amharic Communication Ability: Effective Visual Impairment: No Limitations Traveling Sales Executive Required: No Beliefs That Will Affect Care: None marital status: Current Living Situation: Spouse Current Living Situation Comment: lives in [place] 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 How many Children do You have: 6 How many Children do You have Comment: 3 biological children; 3 step-children Other Information That Helps Us Care for You: No Feels Safe at Home: No Is there a partner from a previous relationship who is making you feel unsafe now?: No Any Concerns about Your Family Situation: No Would You Like to Speak to Someone About Your Situation: No Safety Concerns: Feels Safe At This Time Seatbelt Use: always Assistive Devices: None Review of Systems Review of Systems: All systems reviewed & are unremarkable except as noted in HPI & below Physical Exam Physical Exam: He is seen in the ER in conjunction with his Alert and oriented x3 No acute distress Cooperative with exam Negative logrolling bilaterally Negative tension signs bilaterally 3/5or 3+/5 bilateral hip flexors 4/5 left dorsiflexion and quadricep Constitutional: well developed and cooperative Eyes: normal visual batista by confrontation ENMT: external ear and nose normal, oropharynx normal Neck: normal visual inspection Respiratory: normal respiratory effort Cardiovascular: Extremities: normal capillary refill Gastrointestinal (Abdomen): Inspection/Auscultation: abdomen normal to inspection Musculoskeletal: Spine: + limited thoraco-lumbar ROM and + lumbar spinal tenderness Skin: normal turgor Neurologic: normal touch/pain/proprioception, moves all extremities and + focal motor deficit Psychiatric: A+Ox3, euthymic affect Apperance: appropriately dressed Eye Contact: good eye contact Results & Data Results & Data ([facility]) Vital Signs (Past 12 Hours) Vital Signs Temp Pulse Pulse Resp BP BP Pulse Ox 06/24/21 14:17 76 20 128/86 97 06/24/21 12:18 64 16 118/88 95 06/24/21 10:43 68 20 113/75 94 06/24/21 08:49 71 20 119/77 94 06/24/21 07:31 36.9 C 76 20 159/94 H 96 Code Status & VTE Plan VTE Prophylaxis Plan VTE Prophylaxis will be ordered: Yes
[2021-06-24] MEDS ORDERED: traMADol HCL 50 MG TABLET PO PRN (16:15)
[2021-06-24] MEDS ORDERED: ONDANSETRON 4 MG OD TAB PO PRN (16:15)
[2021-06-24] MEDS ORDERED: PROMETHAZINE HCL 12.5 MG in SODIUM CHLORIDE 0.9% 50 ML IV PRN (16:15)
[2021-06-24] MEDS ORDERED: METOCLOPRAMIDE HCL INJ 5 MG/ML 2 ML VIAL IV PRN (16:15)
[2021-06-24] MEDS ORDERED: HYDROmorphone INJ 1 MG/ML SYRINGE IV PRN (16:15)
[2021-06-24] MEDS ORDERED: LORazepam 0.5 MG/1 ML VIAL IV PRN (16:15)
[2021-06-24] MEDS ORDERED: hydrOXYzine HCl 25 MG TAB PO PRN (16:15)
[2021-06-24] MEDS ORDERED: ACETAMINOPHEN 1,000 MG/100 ML VIAL IV PRN (16:15)
[2021-06-24] MEDS ORDERED: NALOXONE HCL 0.4 MG/1 ML VIAL/CARP IV PRN (16:15)
[2021-06-24] MEDS ORDERED: ALUMINUM/MAGNESIUM SUSP 30 ML UDC PO PRN (16:15)
[2021-06-24] MEDS ORDERED: LORazepam 0.5 MG TAB PO PRN (16:15)
[2021-06-24] MEDS ORDERED: oxyCODONE HCL IR 5 MG TAB (IMMEDIATE RELEASE) PO PRN (16:15)
[2021-06-24] MEDS ORDERED: MAGNESIUM HYDROXIDE SUSP 30 ML UDC PO PRN (16:15)
[2021-06-24] MEDS ORDERED: HYDROmorphone INJ 0.5 MG/0.5 ML SYR IV PRN (16:15)
[2021-06-24] MEDS ORDERED: ONDANSETRON INJ 2 MG/ML 2 ML VIAL IV PRN (16:15)
[2021-06-24] MEDS ORDERED: SOD PHOSPHATE/SOD BIPHOSPHATE ENEMA 132 ML BTL PR PRN (16:15)
[2021-06-24] MEDS: SODIUM CHLORIDE 0.9% 1000ML 1,000 ML IV SCH (17:09)
--- NOTE | 2021-06-24 18:17 | Hospitalist Consultation ---
Date of Consultation June 24, 2021 Assessment & Plan (1) Lumbar stenosis with neurogenic claudication: - Surgical management per primary team - Anticipate possible surgical intervention on Tuesday (2) Atrial fibrillation, permanent: - Remains rate controlled/asymptomatic; Follows with Dr. Zhu - Continue Metoprolol 100 mg AM and 50 mg PM - INR is currently 1.0 and has been off warfarin x 5 days -- Did send a [place] to primary to see if bridging with Lovenox is warranted but until knowing when surgery is could probably hold one more day - CHADVASC is 2-3 so will need to get back on anticoagulation as soon as surgically safe (3) Lower urinary tract symptoms due to benign prostatic hyperplasia: - Continue Alfuzosin 10 mg PM (4) Anemia: - STABLE; appears normocystic - Continue iron supplementation; monitor for constipation (5) Mild CAD: - Catheterization approx. 1 year ago with only mild non-occlusive CAD; no angina - Does not appear to be on ASA; did have a gastric lap band in the past - Continue Atorvastatin (6) Hypertension: - Controlled - Continue Metoprolol - Hold Lasix pre-operatively (7) Esophageal reflux: - Continue Protonix as interchage and Famotidine (8) Dyslipidemia: - Continue Atorvastatin (9) Diabetes mellitus, controlled: - Last A1c 5.8 - not on medication - Can monitor with AM labs especially in setting of likely steroids post- operative Await surgical intervention; Hospitalists will continue to follow Supervising Physician Co-Signing Physician Notes Attending note: patient seen and examined with Kaleigh MCCORMICK. I agree with her exam, ROS, assessment and plan. hospitalist team will follow medically, surgical recommendations per primary team History of Present Illness Reason for Consultation: Medical Management Requesting Physician: Dr. Toure Attending Physician: Candido Toure, History of Present Illness Mr. Hamlin is a 65 y/o male with PMHx of Permanent Atrial Fibrillation, BPH with LUTS, HTN, HLD, GERD, Anemia, and T2DM who presents due to worsening back pain and ambulatory dysfunction. Hospitalists consulted for medical management. Pt reports stability in regards to chronic issues. He follows with Dr. Zhu for cardiology care. He is in permanent A Fib and is rate controlled and is not bothered by this rhythm. He denies CP or SOB. He does not decreased endurance however feels this is related to more difficulty ambulating then from a cardiopulmonary side of things. He was cleared by his PCP and cardiology for surgical intervention. He underwent cardiac cath approx 1 year ago with only mild nonobstructive CAD. His last A1c was 5.8 and not on anti-diabetics. Allergies Allergy/AdvReac Type Severity Reaction Status Date / Time hydrochlorothiazide Allergy Mild Hypotension Verified 06/24/21 08:27 [From Aldoril D30] methyldopa [From Aldoril D30] Allergy Mild Hypotension Verified 06/24/21 08:27 Home Medications Medication Instructions Recorded Confirmed Type magnesium oxide 400 mg (241.3 mg 400 mg PO BID #180 tab 01/17/19 06/24/21 Rx magnesium) tablet cetirizine 10 mg tablet 10 mg PO QAM 03/20/19 06/24/21 History cholecalciferol (vitamin D3) 25 1,000 units PO QAM 03/20/19 06/24/21 History mcg (1,000 unit) tablet multivitamin (Multiple Vitamins) 1 tab PO QAM 03/20/19 06/24/21 History warfarin 10 mg tablet 10 mg PO .COMPLEX #24 tab 04/25/20 06/24/21 Rx docusate sodium 100 mg capsule 100 mg PO BID 08/14/20 06/24/21 History (Stool Softener) tadalafil 10 mg tablet 18.5 mg PO DAILY PRN #90 tab 09/04/20 06/24/21 Rx ferrous sulfate 325 mg (65 mg 325 mg PO BID #60 tab 09/26/20 06/24/21 Rx iron) tablet,delayed release diclofenac sodium 1 % topical gel 4 g EXT QID PRN #1 tube 09/28/20 06/24/21 Rx (Voltaren) metoprolol tartrate 100 mg tablet See Rx Instructions PO .COMPLEX 12/02/20 06/24/21 History atorvastatin 40 mg tablet 40 mg PO HS #90 tab 02/02/21 06/24/21 Rx lansoprazole 30 mg capsule,delayed 30 mg PO QAM #90 cap 02/04/21 06/24/21 Rx release famotidine 40 mg tablet 40 mg PO QPM #90 tab 04/08/21 06/24/21 Rx gabapentin 300 mg capsule 300 mg PO TID #270 cap 04/08/21 06/24/21 Rx warfarin 7.5 mg tablet 7.5 mg PO .COMPLEX #65 tab 05/19/21 06/24/21 Rx alfuzosin 10 mg tablet,extended 10 mg PO QPM 05/28/21 06/24/21 History release 24 hr celecoxib 100 mg capsule (Celebrex) 100 mg PO QAM 05/28/21 06/24/21 History oxycodone 5 mg tablet 5 mg PO Q6H PRN #30 tab 06/29/21 Rx tramadol 50 mg tablet 50 mg PO Q6H PRN #30 tab 06/29/21 Rx furosemide 20 mg tablet (Lasix) 20 mg PO QAM #60 tab 06/30/21 Rx Patient History Medical History Anemia on iron supplementation Atrial fibrillation, permanent Follows with Dr. Gama; on warfarin Woodard's esophagus Benign localized hyperplasia of prostate with urinary obstruction Benign positional vertigo last episode > 1 yr ago Cardiomegaly DM type 2 (diabetes mellitus, type 2) diet controlled Dyslipidemia Esophageal reflux controlled, stable per pt Hypertension controlled, stable per pt Mild CAD 03/2020 - heart cath by Dr Christiano Zhu; nonobstructive CAD Morbid obesity with BMI of 40.0-44.9, adult CIRA on CPAP 100% compliant. Osteoarthritis Polyneuropathy Surgical History History of esophagogastroduodenoscopy (EGD) History of left hip replacement History of right hip replacement 09/24/2020: SAB at L3-L4, 2 attempts. No issues per anesthesia postop progress note. Hx of laparoscopic gastric banding 2010 S/P cardiac cath 03/2020 [place] - no stents/angioplasty S/P colonoscopy S/P knee replacement bilateral left 04/23/2019: SAB at L4-L5, 2 attempts + PNB. No issues per anesthesia postop progress note. S/P rotator cuff repair RIGHT/LEFT right 08/22/2017: Grade 1 view, MAC#4, ETT#8.0 atraumatic x 1 + PNB. No issues per anesthesia postop progress note. Family History Father Heart disease Lung disease Myocardial infarction Mother Hypertension Uterine cancer Other Diabetes Social History Smoking Status: Former smoker Number of Years Since Quit: 35; Second Hand Exposure: No; Do You Dip or Chew Tobacco: No; Tobacco Cessation Education Requested by Patient: No Hx Alcohol Use: Yes Alcohol type: beer Hx Substance Use: No Preferred Language: Cameroonian Communication Ability: Effective Visual Impairment: No Limitations Pull Over Required: No Beliefs That Will Affect Care: None marital status: Current Living Situation: Spouse Current Living Situation Comment: lives in [place] 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 How many Children do You have: 6 How many Children do You have Comment: 3 biological children; 3 step-children Other Information That Helps Us Care for You: No Feels Safe at Home: Yes Safety Concerns: Feels Safe At This Time Seatbelt Use: always Assistive Devices: Walker Review of Systems Review of Systems: All systems reviewed & are unremarkable except as noted in Subjective Physical Exam Physical Exam: PHYSICAL EXAM General Appearance: WDWN in NAD who is A&O x 3 HEENT: Head is normocephalic/atraumatic; Hearing grossly intact; Mucous membranes moist Neck: Supple; Trachea midline; Neg JVD Heart: Irregularly irregular; rate controlled Lungs: CTA in all lung batista bilaterally; Respirations unlabored; Neg accessory muscle use Abdomen: Soft, non-tender, non-distended; Positive BS x 4 quadrants Extremities: Neg cyanosis; + edema does not appear pitting but has compression socks in place Neurological: Speech clear Psychiatric: Appropriate mood/affect Skin: Normal Color; Warm/Dry Results & Data Results & Data ([facility]) Vital Signs (Past 12 Hours) Vital Signs Temp Pulse Pulse Pulse Resp BP BP 06/24/21 16:20 36.8 C 76 18 129/83 06/24/21 16:17 36.8 C 87 18 140/89 06/24/21 14:17 76 20 128/86 06/24/21 12:18 64 16 118/88 06/24/21 10:43 68 20 113/75 06/24/21 08:49 71 20 119/77 06/24/21 07:31 36.9 C 76 20 159/94 H Pulse Ox 06/24/21 16:20 98 06/24/21 16:17 06/24/21 14:17 97 06/24/21 12:18 95 06/24/21 10:43 94 06/24/21 08:49 94 06/24/21 07:31 96 PG Care Time/CCT Total # of Minutes Spent Total Time Spent with Patient: Total time spent is greater than 50% in coordination of care (as documented) at patient's floor/unit and/or counseling patient: Coding Level of Care Code 82185 Inpt Consult Level 2 Diagnoses Lumbar stenosis with neurogenic claudication M48.062 Diabetes mellitus, controlled E11.9 Lower urinary tract symptoms due to benign prostatic hyperplasia N40.1 Anemia D64.9 Mild CAD I25.10 Hypertension I10 Esophageal reflux K21.9 Dyslipidemia E78.5 Atrial fibrillation, permanent I48.2
[2021-06-24] MEDS: ALFUZOSIN HCL 10 MG TAB PO SCH (20:29)
[2021-06-24] MEDS: METOPROLOL TARTRATE 50 MG TAB PO SCH (20:29)
[2021-06-24] MEDS: ATORVASTATIN 40 MG TAB PO SCH (20:29)
[2021-06-24] MEDS: FERROUS SULFATE 325 MG TAB PO SCH (20:30)
[2021-06-24] MEDS: GABAPENTIN 300 MG CAP PO SCH (20:30)
[2021-06-24] MEDS: FAMOTIDINE 40 MG TABLET PO SCH (20:30)
[2021-06-24] MEDS: MAGNESIUM OXIDE 400 MG TAB PO SCH (20:30)
[2021-06-24] MEDS: ACETAMINOPHEN 500 MG TAB PO PRN (23:20)
[2021-06-25] MEDS: SODIUM CHLORIDE 0.9% 1000ML 1,000 ML IV SCH ×2 (06:01→19:21)
--- NOTE | 2021-06-25 08:47 | Orthopedic Progress Note ---
Date of Service June 25, 2021 Assessment & Plan (1) Lumbar stenosis with neurogenic claudication: Plan: This time we will make the patient n.p.o. after midnight and plan for surgery in the a.m. Admission and Anticipated Discharge Date Admission Date: June 24, 2021 Subjective Patient continues to note significant bilateral leg pain and weakness. Physical Exam Physical Exam: On exam he demonstrates significant foot drop to the left lower extremity compared to the right. There is no evidence of ankle clonus. There is marked sensory deficits. Results & Data ([facility]) Vital Signs (Past 12 Hours) Vital Signs Temp Pulse Pulse Resp BP Pulse Ox 06/25/21 07:13 36.5 C 70 20 107/69 94 06/24/21 22:21 36.6 C 84 19 130/81 93
[2021-06-25] MEDS: CHOLECALCIFEROL 1,000 UNITS 25 MCG TAB PO SCH (08:58)
[2021-06-25] MEDS: CETIRIZINE HCL 10 MG TABLET PO SCH (08:58)
[2021-06-25] MEDS: FERROUS SULFATE 325 MG TAB PO SCH ×2 (08:58→20:16)
[2021-06-25] MEDS: GABAPENTIN 300 MG CAP PO SCH ×3 (08:59→20:16)
[2021-06-25] MEDS: MAGNESIUM OXIDE 400 MG TAB PO SCH ×2 (08:59→20:17)
[2021-06-25] MEDS: MULTIVITAMIN TAB PO SCH (08:59)
[2021-06-25] MEDS: PANTOprazole 40 MG TAB PO SCH (08:59)
[2021-06-25] MEDS: METOPROLOL TARTRATE 100 MG TAB PO SCH (08:59)
[2021-06-25] MEDS ORDERED: FUROSEMIDE 20 MG TAB PO SCH (09:00)
--- NOTE | 2021-06-25 13:16 | Hospitalist Progress Note ---
Date of Service June 25, 2021 Assessment & Plan (1) Lumbar stenosis with neurogenic claudication: Plan: - Surgical management per primary team - Anticipate possible surgical intervention on Tuesday (2) Atrial fibrillation, permanent: Plan: - Remains rate controlled/asymptomatic; Follows with Dr. Zhu - Continue Metoprolol 100 mg AM and 50 mg PM - INR is currently 1.0 and has been off warfarin x 5 days - CHADVASC is 2-3 so will need to get back on anticoagulation as soon as surgically safe (3) Lower urinary tract symptoms due to benign prostatic hyperplasia: Plan: - Continue Alfuzosin 10 mg PM (4) Anemia: Plan: - STABLE; appears normocystic - Continue iron supplementation; monitor for constipation (5) Mild CAD: Plan: - Catheterization approx. 1 year ago with only mild non-occlusive CAD; no angina - Does not appear to be on ASA; did have a gastric lap band in the past - Continue Atorvastatin (6) Hypertension: Plan: - Controlled - Continue Metoprolol - Hold Lasix pre-operatively (7) Esophageal reflux: Plan: - Continue Protonix as interchage and Famotidine (8) Dyslipidemia: Plan: - Continue Atorvastatin (9) Diabetes mellitus, controlled: Plan: - Last A1c 5.8 - not on medication - Can monitor with AM labs especially in setting of likely steroids post- operative Plan: Await surgical intervention; Hospitalists will continue to follow Admission and Anticipated Discharge Date Admission Date: June 24, 2021 Subjective No acute events overnight. Pain is tolerable. Tolerating a diet without issue. Awaiting surgical intervention tomorrow Review of Systems Review of Systems: All systems reviewed & are unremarkable except as noted in Subjective Physical Exam Physical Exam: PHYSICAL EXAM General Appearance: WDWN in NAD who is A&O x 3 HEENT: Head is normocephalic/atraumatic; Hearing grossly intact; Mucous membranes moist Neck: Supple; Trachea midline; Neg JVD Heart: Irregularly irregular; rate controlled Lungs: CTA in all lung batista bilaterally; Respirations unlabored; Neg accessory muscle use Abdomen: Soft, non-tender, non-distended; Positive BS x 4 quadrants Extremities: Neg cyanosis; + edema does not appear pitting but has compression socks in place Neurological: Speech clear Psychiatric: Appropriate mood/affect Skin: Normal Color; Warm/Dry Results & Data Results & Data ([facility]) Vital Signs (Past 12 Hours) Vital Signs Temp Pulse Resp BP Pulse Ox 06/25/21 07:13 36.5 C 70 20 107/69 94 PG Care Time/CCT Total # of Minutes Spent Total Time Spent with Patient: Total time spent is greater than 50% in coordination of care (as documented) at patient's floor/unit and/or counseling patient: Coding Level of Care Code 00462 Inpt Consult Level 2 Diagnoses Lumbar stenosis with neurogenic claudication M48.062 Atrial fibrillation, permanent I48.2 Lower urinary tract symptoms due to benign prostatic hyperplasia N40.1 Anemia D64.9 Mild CAD I25.10 Hypertension I10 Esophageal reflux K21.9 Dyslipidemia E78.5 Diabetes mellitus, controlled E11.9
[2021-06-25] MEDS: ALFUZOSIN HCL 10 MG TAB PO SCH (20:16)
[2021-06-25] MEDS: FAMOTIDINE 40 MG TABLET PO SCH (20:16)
[2021-06-25] MEDS: ATORVASTATIN 40 MG TAB PO SCH (20:17)
[2021-06-25] MEDS: METOPROLOL TARTRATE 50 MG TAB PO SCH (20:17)
[2021-06-25] MEDS: ACETAMINOPHEN 500 MG TAB PO PRN (23:26)
--- NOTE | 2021-06-26 06:28 | Electrocardiogram Report ---
Test Reason : Blood Pressure : / mmHG Vent. Rate : 077 BPM Atrial Rate : 077 BPM P-R Int : 000 ms QRS Dur : 166 ms QT Int : 430 ms P-R-T Axes : 000 033 032 degrees QTc Int : 486 ms Atrial fibrillation Right bundle branch block Cannot rule out Inferior infarct (cited on or before 11-JUN-2021) Abnormal ECG When compared with ECG of 11-JUN-2021 12:09, No significant change was found Confirmed by Christiano Zhu ([id number] on 06/26/2021 6:27:42 AM Referred By: REFERRED SELF Confirmed By:Christiano Zhu
[2021-06-26] MEDS: GABAPENTIN 300 MG CAP PO SCH ×3 (07:48→21:56)
[2021-06-26] MEDS: SODIUM CHLORIDE 0.9% 1000ML 1,000 ML IV SCH (07:48)
[2021-06-26] MEDS: METOPROLOL TARTRATE 100 MG TAB PO SCH (07:48)
[2021-06-26] MEDS: PANTOprazole 40 MG TAB PO SCH (07:48)
[2021-06-26] MEDS: MAGNESIUM OXIDE 400 MG TAB PO SCH ×2 (07:50→21:56)
[2021-06-26] MEDS: FERROUS SULFATE 325 MG TAB PO SCH ×2 (07:50→21:55)
[2021-06-26] MEDS: MULTIVITAMIN TAB PO SCH (07:50)
[2021-06-26] MEDS: CHOLECALCIFEROL 1,000 UNITS 25 MCG TAB PO SCH (07:50)
[2021-06-26] MEDS: CETIRIZINE HCL 10 MG TABLET PO SCH (07:50)
[2021-06-26] MEDS ORDERED: KETAMINE 50 MG/5 ML SYRINGE ONE (08:24)
[2021-06-26] MEDS ORDERED: MIDAZOLAM HCL 1 MG/ML 2ML VIAL ONE (08:24)
[2021-06-26] MEDS ORDERED: HYDROmorphone INJ 2 MG/ML SYR/VIAL ONE (08:25)
--- NOTE | 2021-06-26 08:36 | Anesthesiology Consultation ---
Date of Service June 26, 2021 Assessment & Plan Chart Review Chart Review: Acceptable Risk for Surgery and Patient NOT seen in Pre Admission Testing Consults Requested none ASA ASA4 Proposed Anesthesia Anesthesia Type: General Anesthesia Line Insertion: Arterial line History Surgery Operation Date: 06/26/21 10:05 Proposed Procedures p T11-S1 Thoraco Lumbar Decompression Instrumentation Fusion - Candido Toure, Height/Weight Height: 6 ft 3 in Weight: 157.397 kg Allergies Allergy/AdvReac Type Severity Reaction Status Date / Time hydrochlorothiazide Allergy Mild Hypotension Verified 06/24/21 08:27 [From Aldoril D30] methyldopa [From Aldoril D30] Allergy Mild Hypotension Verified 06/24/21 08:27 Medications Home Medications Medication Instructions Recorded Confirmed Last Taken magnesium oxide 400 mg (241.3 mg 400 mg PO BID #180 tab 01/17/19 06/24/21 09/23/20 22:00 magnesium) tablet cetirizine 10 mg tablet 10 mg PO QAM 03/20/19 06/24/21 09/23/20 08:00 cholecalciferol (vitamin D3) 25 1,000 units PO QAM 03/20/19 06/24/21 09/23/20 08:00 mcg (1,000 unit) tablet multivitamin (Multiple Vitamins) 1 tab PO QAM 03/20/19 06/24/21 09/23/20 08:00 warfarin 10 mg tablet 10 mg PO .COMPLEX #24 tab 04/25/20 06/24/21 09/16/20 docusate sodium 100 mg capsule 100 mg PO BID 08/14/20 06/24/21 09/23/20 22:00 (Stool Softener) tadalafil 10 mg tablet 18.5 mg PO DAILY PRN #90 tab 09/04/20 06/24/21 Unknown ferrous sulfate 325 mg (65 mg 325 mg PO BID #60 tab 09/26/20 06/24/21 Unknown iron) tablet,delayed release diclofenac sodium 1 % topical gel 4 g EXT QID PRN #1 tube 09/28/20 06/24/21 Unknown (Voltaren) furosemide 20 mg tablet (Lasix) 20 mg PO QAM #60 tab 12/02/20 06/24/21 Unknown metoprolol tartrate 100 mg tablet See Rx Instructions PO .COMPLEX 12/02/20 06/24/21 06/24/21 atorvastatin 40 mg tablet 40 mg PO HS #90 tab 02/02/21 06/24/21 Unknown lansoprazole 30 mg capsule,delayed 30 mg PO QAM #90 cap 02/04/21 06/24/21 06/24/21 release famotidine 40 mg tablet 40 mg PO QPM #90 tab 04/08/21 06/24/21 Unknown gabapentin 300 mg capsule 300 mg PO TID #270 cap 04/08/21 06/24/21 06/24/21 warfarin 7.5 mg tablet 7.5 mg PO .COMPLEX #65 tab 05/19/21 06/24/21 Unknown alfuzosin 10 mg tablet,extended 10 mg PO QPM 05/28/21 06/24/21 Unknown release 24 hr celecoxib 100 mg capsule (Celebrex) 100 mg PO QAM 05/28/21 06/24/21 Unknown Active Medications Generic Name Dose Route Start Last Admin Trade Name Freq PRN Reason Stop Dose Admin Acetaminophen 1,000 mg 06/24/21 16:15 06/25/21 23:26 Acetaminophen 500 Mg Tab PO 07/24/21 16:14 1,000 mg Q8H PRN Administration MILD Pain Scale 1,2,3 & Pre PT Alfuzosin HCl 10 mg 06/24/21 21:00 06/25/21 20:16 Alfuzosin Hcl 10 Mg Tab PO 07/24/21 20:59 10 mg QPM DALILA Administration Atorvastatin Calcium 40 mg 06/24/21 21:00 06/25/21 20:17 Atorvastatin 40 Mg Tab PO 07/24/21 20:59 40 mg HS DALILA Administration Cetirizine HCl 10 mg 06/25/21 09:00 06/26/21 07:50 Cetirizine Hcl 10 Mg Tablet PO 07/25/21 08:59 Not Given QAM DALILA Famotidine 40 mg 06/24/21 21:00 06/25/21 20:16 Famotidine 40 Mg Tablet PO 07/24/21 20:59 40 mg QPM DALILA Administration Ferrous Sulfate 325 mg 06/24/21 21:00 06/26/21 07:50 Ferrous Sulfate 325 Mg Tab PO 07/24/21 20:59 Not Given BID DALILA Gabapentin 300 mg 06/24/21 21:00 06/26/21 07:48 Gabapentin 300 Mg Cap PO 07/24/21 20:59 300 mg TID DALILA Administration Sodium Chloride 1,000 mls @ 75 mls/hr 06/24/21 16:15 06/26/21 07:48 Nss 1000ml IV 07/24/21 16:14 75 mls/hr .[id number] DALILA Administration Magnesium Oxide 400 mg 06/24/21 21:00 06/26/21 07:50 Magnesium Oxide 400 Mg Tab PO 07/24/21 20:59 Not Given BID DALILA Metoprolol Tartrate 100 mg 06/25/21 09:00 06/26/21 07:48 Metoprolol Tartrate 100 Mg Tab PO 07/25/21 08:59 100 mg QAM DALILA Administration Metoprolol Tartrate 50 mg 06/24/21 21:00 06/25/21 20:17 Metoprolol Tartrate 50 Mg Tab PO 07/24/21 20:59 50 mg QPM DALILA Administration Multivitamins 1 tab 06/25/21 09:00 06/26/21 07:50 Multivitamin Tab PO 07/25/21 08:59 Not Given QAM DALILA Pantoprazole Sodium 40 mg 06/25/21 09:00 06/26/21 07:48 Pantoprazole 40 Mg Tab PO 07/25/21 08:59 40 mg QAM DALILA Administration Vitamin D 1,000 units 06/25/21 09:00 06/26/21 07:50 Cholecalciferol 1,000 Units 25 Mcg Tab PO 07/25/21 08:59 Not Given QAM DALILA Past Medical History Medical History Anemia on iron supplementation Atrial fibrillation, permanent Follows with Dr. Gama; on warfarin Woodard's esophagus Benign localized hyperplasia of prostate with urinary obstruction Benign positional vertigo last episode > 1 yr ago Cardiomegaly DM type 2 (diabetes mellitus, type 2) diet controlled Dyslipidemia Esophageal reflux controlled, stable per pt Hypertension controlled, stable per pt Mild CAD 03/2020 - heart cath by Dr Christiano Zhu; nonobstructive CAD Morbid obesity with BMI of 40.0-44.9, adult CIRA on CPAP 100% compliant. Osteoarthritis Polyneuropathy Exercise / Class Metabolic Activity III < 4 Walking/Shop/Light housework Past Family History Family History Father Heart disease Lung disease Myocardial infarction Mother Hypertension Uterine cancer Other Diabetes Past Surgical History Surgical History History of esophagogastroduodenoscopy (EGD) History of left hip replacement History of right hip replacement 09/24/2020: SAB at L3-L4, 2 attempts. No issues per anesthesia postop progress note. Hx of laparoscopic gastric banding 2010 S/P cardiac cath 03/2020 [place] - no stents/angioplasty S/P colonoscopy S/P knee replacement bilateral left 04/23/2019: SAB at L4-L5, 2 attempts + PNB. No issues per anesthesia postop progress note. S/P rotator cuff repair RIGHT/LEFT right 08/22/2017: Grade 1 view, MAC#4, ETT#8.0 atraumatic x 1 + PNB. No issues per anesthesia postop progress note. Past Anesthesia History No Hx of Anesthesia Complications and No Family Hx of Anesthesia Complications History of PONV No Hx of PONV and No Hx of Motion Sickness Social History Smoking Status: Former smoker Do You Dip or Chew Tobacco: No Hx Alcohol Use: Yes Alcohol type: beer alcohol intake frequency: holidays/special occasions only Hx Substance Use: No substance use type: does not use Physical Exam Vital Signs Last Vital Signs Temp 36.5 C 06/26/21 07:39 Pulse 87 06/26/21 07:39 Resp 20 06/26/21 07:39 BP 126/87 06/26/21 07:39 Pulse Ox 96 06/26/21 07:39 Testing Laboratory Results 06/24/21 08:10 06/24/21 08:10 PT 10.5 Seconds (9.0-12.0) 06/24/21 08:10 INR 1.0 (0.9-1.1) 06/24/21 08:10 APTT 26.3 Seconds (21.0-31.0) 06/24/21 08:10 Blood Type O Positive 06/25/21 15:46 Antibody Screen NEGATIVE 06/25/21 15:46 Electrocardiogram Date: 06/25/21 Findings: + AFIB @ (at 76) and + RBBB Echocardiogram Date: 08/04/15 EF: 50% LV Function: normal (low Normal) RWMA: + none Other Findings: + LVH (moderate) RV-mildly dilated Cardiac Catheterization Date: 03/06/20 Findings: + RCA (prox-mid 20-30%), + LMA (NL) and + LCX (OM1- prox 30-40%); no valve disease LAD-LI's
[2021-06-26] MEDS ORDERED: SODIUM CHLORIDE 0.9% 250 ML IV PRN (08:40)
[2021-06-26] MEDS ORDERED: SUGAMMADEX SODIUM 200 MG/2 ML VIAL IV ONE (08:57)
--- NOTE | 2021-06-26 09:34 | History & Physical Bridge Note ---
Date of Service June 26, 2021 History & Physical Bridge Note I have examined the patient, reviewed the History & Physical and in the interval since the performance of the History & Physical I have noted the following changes of clinical significance: no changes noted L2-S1 decompression and fusion, possible T11-S1 decompression
[2021-06-26] MEDS ORDERED: BUPIVACAINE 0.5 % 5 MG/1 ML MPF 30ML VIAL ONE (09:49)
[2021-06-26] MEDS ORDERED: EPINEPHrine INJ 1 MG/ML AMP ONE (09:49)
[2021-06-26] MEDS ORDERED: ceFAZolin 330 MG/ML 1 GM VIAL ONE (09:49)
[2021-06-26] MEDS ORDERED: ROCURONIUM BROMIDE 10 MG/ML 5 ML VIAL IV ONE ×2 (11:01→12:58)
[2021-06-26] MEDS ORDERED: SUCCINYLCHOLINE CHLORIDE 20 MG/ML 10 ML VIAL IV ONE (11:02)
[2021-06-26] MEDS ORDERED: LIDOCAINE 2% 2 ML VIAL/AMP(20MG/ML) INFIL ONE (11:02)
[2021-06-26] MEDS ORDERED: PHENYLEPHRINE 100MCG/ML 5ML SYR ONE (11:02)
[2021-06-26] MEDS ORDERED: DEXAMETHASONE SOD INJ 4 MG/ML VIAL ONE (11:02)
[2021-06-26] MEDS ORDERED: ONDANSETRON INJ 2 MG/ML 2 ML VIAL ONE (11:02)
[2021-06-26] MEDS ORDERED: PROPOFOL IV EMULSION 10 MG/ML 20 ML VIAL IV ONE (11:02)
[2021-06-26] MEDS ORDERED: FLOSEAL HEMOSTATIC MATRIX 10ML TOP ONE (11:36)
[2021-06-26] MEDS ORDERED: PHENYLEPHRINE HCL 10 MG/ML VIAL ONE (11:43)
[2021-06-26 12:12] LABS: Hematocrit (blood only) 34.1 % (42-52); Hemoglobin 11.1 g/dL (14.0-18.0)
[2021-06-26 12:22] LABS: iSTAT Creatinine 0.7 mg/dl (0.6-1.3); iSTAT Hemoglobin 10.5 g/dl (14.0-18.0); iSTAT Ionized Calcium 1.2 mmol/l (1.12-1.32); iSTAT Potassium 3.8 mmol/L (3.3-5.0)
[2021-06-26 13:44] LABS: Hematocrit (blood only) 34.5 % (42-52); Hemoglobin 11.4 g/dL (14.0-18.0)
[2021-06-26 13:58] LABS: iSTAT Creatinine 0.7 mg/dl (0.6-1.3); iSTAT Hemoglobin 11.2 g/dl (14.0-18.0); iSTAT Ionized Calcium 1.21 mmol/l (1.12-1.32); iSTAT Potassium 4.2 mmol/L (3.3-5.0)
[2021-06-26] MEDS ORDERED: fentaNYL citrate 100 MCG/2 ML VIAL ONE (14:25)
--- NOTE | 2021-06-26 14:25 | Operative Report ---
Post Operative Report Pre & Post Diagnosis Operation Date: 06/26/21 10:05 Pre-Op Diagnosis: Lumbar stenosis with neurogenic claudication Post-Op Diagnosis: Lumbar stenosis with neurogenic claudication I identified the patient and participated in the time-out.: Yes Procedure Operation Date: 06/26/21 10:05 Actual Procedures #1 lumbar decompression with bilateral medial facetectomies and foraminotomies L2-3, L3-4, L4-5 and L5-S1. #2 posterior spinal fusion L2-3, L3-4, L4-5 and L5- S1. #3 placement posterior segmental instrumentation L2-S1 including a cross- link. #4 interbody fusion L4-5 L5-S1. #5 placement of a 11 x 26 mm titanium cage L4-L5 and 13 x 26 mm titanium cage L5-S1. #6 placement locally harvested morselized autograft in the posterior gutters. #7 placement of infuse collagen sponge, master graft in the posterior lateral gutters and I factor in the interbody space. Surgeon Candido Toure, DO Hydrologic Modeler Bart Garza Estimated Blood Loss 1,800 Findings See Below The patient is 6 foot 3 inches tall weighing over 157 kg with a BMI in excess of 43. This combined with an EBL of greater than 800 cc pretty significant technical difficulty. He required deepest retractors and longest instruments in order to perform his procedure. This added at least 50% increase to the operative time. Specimens None Indications This is a 65-year-old male who presents with above-mentioned diagnosis after failing since course of nonoperative care and having a steady decline in status is here for the above-mentioned procedure. Description of Procedure Patient was met with identified informed consent obtained. Patient was then taken to the operative suite underwent an patient placed in a prone position the [facility] top Dannie frame. All bony prominences well-padded eyes inspected to ensure no external pressure placed upon the. This point the lumbar spine was prepped and draped in normal sterile fashion. Sharp dissection with the assistance of Bovie cautery was performed down to and exposing the lamina and transverse processes of L to L3-L4-L5 and the sacral ala bilaterally. From caudal to cephalad fashion complete laminectomy of L5 L4 L3 and L2 was performed including bilateral medial facetectomies and foraminotomies addressing severe spinal stenosis. Pedicle screws were placed in L2 L3-L4-L5 and S1 levels bilaterally with assistance of fluoroscopy and properly sized elma placed. By way of entrance foraminal approach on the left complete discectomy of L5-S1 was performed endplates curetted to subcortical bleeding bone and a 13 x 26 mm titanium cage filled I factor tapped in position. Then proceeded to L4-L5 and again by way of a transforaminal approach on the left knee discectomy performed endplates curetted to subcortically bone and an 11 x 26 mm titanium cage filled with I factor tapped in position. The rods were then locked in final position bilaterally. The transverse processes of L2 L3-L4-L5 and the sacral ala burred to subcortical being bone. Infuse collagen sponge master graft local autograft was placed in the posterior gutters. Cross-link was locked in position. 15 round TRINI drain inserted. The incision then closed with 1 Vicryl the fascia 2-0 Vicryl subcutaneously and 4 Monocryl for fascial closure. Steri-Strip sterile dressings placed. Patient waken taken back in stable condition. Please note spinal cord monitoring was utilized at the procedure no changes noted. Lastly Bart Garza was present at the entire surgery involved the patient positioning complex portions of the surgery and final skin closure. I attest to the content of the Intraoperative Record and any orders documented therein. Any exceptions are noted below.
--- NOTE | 2021-06-26 14:27 | Fluoroscopy Report ---
FL lumbar spine 2-3V CLINICAL HISTORY: T11-S1 THORACO LUMBAR DECOMP/FUSION COMPARISON STUDY: None. FLUOROSCOPY TIME: 51 seconds.. FINDINGS: 4 fluoroscopic spot images of the thoracolumbar spine. There is posterior decompression and fusion within the lumbar spine. The exact levels are difficult to determine due to the suboptimal im age quality. The hardware appears grossly intact. IMPRESSION: Fluoroscopic assistance provided for posterior decompression and fusion within the thorac olumbar spine. ACT 112: Negative or not required by law. Electronically signed by: Les Renteria M.D. 06/26/2021 2:26 PM
[2021-06-26] MEDS ORDERED: ATROPINE SULFATE 0.1 MG/ML 10ML SYR IV PRN (14:37)
[2021-06-26] MEDS ORDERED: FLUMAZENIL 0.1 MG/1 ML 10 ML VIAL IV PRN (14:37)
[2021-06-26] MEDS ORDERED: LABETALOL HCL IV 5 MG/ML 20ML IV PRN (14:37)
[2021-06-26] MEDS ORDERED: PROMETHAZINE HCL 12.5 MG in SODIUM CHLORIDE 0.9% 50 ML IV PRN ×2 (14:37→16:07)
[2021-06-26] MEDS ORDERED: ePHEDrine sulfate 50 MG/ML AMP IV PRN (14:37)
[2021-06-26] MEDS ORDERED: NALOXONE HCL 0.4 MG/1 ML VIAL/CARP IV PRN ×2 (14:37→16:07)
[2021-06-26] MEDS ORDERED: HYDROmorphone INJ 1 MG/ML SYRINGE IV PRN (14:37)
[2021-06-26] MEDS ORDERED: ONDANSETRON INJ 2 MG/ML 2 ML VIAL IV PRN ×2 (14:37→16:07)
[2021-06-26] MEDS ORDERED: bisacodyL 10 MG SUPP PR PRN ×2 (14:57→16:07)
[2021-06-26 15:27] LABS: Hematocrit (blood only) 33.8 % (42-52); Hemoglobin 11.2 g/dL (14.0-18.0)
--- NOTE | 2021-06-26 15:40 | Anesthesiology Progress Note ---
Date of Service June 26, 2021 Anesthesia Post Procedure Vital Signs Vital Signs: Temp Pulse Pulse Resp BP Pulse Ox 06/26/21 15:20 87 15 143/89 H 99 06/26/21 15:10 82 20 144/92 H 100 06/26/21 15:00 77 16 145/97 H 98 06/26/21 14:53 36.6 C 110 H 16 139/92 98 06/26/21 09:22 36.6 C 78 18 162/90 H 96 06/26/21 07:39 36.5 C 87 20 126/87 96 06/25/21 23:11 36.7 C 80 16 119/78 97 06/25/21 20:14 83 16 122/80 94 Pain Intensity Back: Pain Intensity: 2 Transfer of Care Handoff Completed per policy Notes Mental Status: alert / awake / arousable Patient Amnestic to Procedure: Yes Nausea / Vomiting: adequately controlled Pain: adequately controlled Airway Patency, RR, SpO2: stable & adequate BP & HR: stable & adequate Hydration State: stable & adequate Anesthetic Complications: no major complications apparent and Pt Satisfied with anesthetic care Notes: The patient is awake and comfortable. His vital signs are stable. Hgb is 11.2.
[2021-06-26] MEDS ORDERED: diphenhydrAMINE Capsule 25 MG CAP PO PRN (16:07)
[2021-06-26] MEDS ORDERED: MAGNESIUM HYDROXIDE SUSP 30 ML UDC PO PRN (16:07)
[2021-06-26] MEDS ORDERED: ONDANSETRON 4 MG OD TAB PO PRN (16:07)
[2021-06-26] MEDS ORDERED: HYDROmorphone INJ 0.5 MG/0.5 ML SYR IV PRN (16:07)
[2021-06-26] MEDS ORDERED: LORazepam 0.5 MG TAB PO PRN (16:07)
[2021-06-26] MEDS ORDERED: hydrOXYzine HCl 25 MG TAB PO PRN (16:07)
[2021-06-26] MEDS ORDERED: LORazepam 0.5 MG/1 ML VIAL IV PRN (16:07)
[2021-06-26] MEDS ORDERED: METOCLOPRAMIDE HCL INJ 5 MG/ML 2 ML VIAL IV PRN (16:07)
[2021-06-26] MEDS ORDERED: DO NOT ADMINISTER PNEUMOCOCCAL VACCINE PRN (16:07)
[2021-06-26] MEDS ORDERED: DO NOT ADMINISTER FLU VACCINE PRN (16:07)
[2021-06-26] MEDS ORDERED: SOD PHOSPHATE/SOD BIPHOSPHATE ENEMA 132 ML BTL PR PRN (16:07)
[2021-06-26] MEDS ORDERED: ALUMINUM/MAGNESIUM SUSP 30 ML UDC PO PRN (16:07)
[2021-06-26] MEDS ORDERED: ACETAMINOPHEN 1,000 MG/100 ML VIAL IV PRN (16:07)
[2021-06-26] MEDS ORDERED: ACETAMINOPHEN 500 MG TAB PO PRN (16:07)
[2021-06-26] MEDS ORDERED: FAMOTIDINE 20 MG TAB PO PRN (16:07)
[2021-06-26] MEDS: oxyCODONE HCL IR 5 MG TAB (IMMEDIATE RELEASE) PO PRN ×2 (16:22→22:00)
[2021-06-26] MEDS: LACTATED RINGER'S 1,000 ML IV SCH (16:23)
[2021-06-26] MEDS: ceFAZolin 2000MG 2,000 MG/15 ML SYR IV SCH (17:33)
[2021-06-26] MEDS: KETOROLAC TROMETHAMINE 15 MG/ML VIAL IV SCH (17:33)
--- NOTE | 2021-06-26 18:23 | Communication Note ---
Date of Service: June 26, 2021 Patient was down for surgery on multiple visits. Chart reviewed and patient did have significant blood loss (EBL 1800) - Multiple Hgb checks are stable and vitals stable. Labs ordered for AM with units of PRBCs on standby. Patient does have underlying anemia. Pending labs and when cleared from surgical perspective will have to have Coumadin re-instituted. Hospitalist service will continue to follow.
[2021-06-26] MEDS: ATORVASTATIN 40 MG TAB PO SCH (21:55)
[2021-06-26] MEDS: FAMOTIDINE 40 MG TABLET PO SCH (21:55)
[2021-06-26] MEDS: DOCUSATE SODIUM/SENNA 50/8.6MG TAB PO SCH (21:55)
[2021-06-26] MEDS: ALFUZOSIN HCL 10 MG TAB PO SCH (21:55)
[2021-06-26] MEDS: METOPROLOL TARTRATE 50 MG TAB PO SCH (21:56)
[2021-06-27] MEDS: ceFAZolin 2000MG 2,000 MG/15 ML SYR IV SCH (01:15)
[2021-06-27] MEDS: KETOROLAC TROMETHAMINE 15 MG/ML VIAL IV SCH ×3 (01:18→11:42)
[2021-06-27] MEDS: LACTATED RINGER'S 1,000 ML IV SCH ×2 (04:39→20:32)
[2021-06-27 06:02] LABS: Basophils # (auto) 0.01 K/uL (0-0.2); Basophils % (auto) 0.1 %; Eosinophils # (auto) 0.02 K/uL (0-0.5); Eosinophils % (auto) 0.2 %; Hematocrit (blood only) 28.9 % (42-52); Hemoglobin 9.5 g/dL (14.0-18.0); Immature Granulocytes # (auto) 0.05 K/uL (0.00-0.02); Immature Granulocytes % (auto) 0.4 %; Lymphocytes # (auto) 0.99 K/uL (1.2-3.4); Lymphocytes % (auto) 7.8 %; Mean Corpuscular Hemoglobin 30.6 pg (25-34); Mean Corpuscular Hgb Conc 32.9 g/dL (32-36); Mean Corpuscular Volume 93.2 fL (80-100); Monocytes # (auto) 1.47 K/uL (0.11-0.59); Monocytes % (auto) 11.6 %; Neutrophils # (auto) 10.17 K/uL (1.4-6.5); Neutrophils % (auto) 79.9 %; Platelet Count 200 K/uL (130-400); RDW Coefficient of Variation 13.5 % (11.5-14.5); RDW Standard Deviation 46.3 fL (36.4-46.3); White Blood Count 12.71 K/uL (4.8-10.8)
[2021-06-27 06:19] LABS: BUN Creatinine Ratio 25.6 (10-20); Calcium 8.4 mg/dl (8.5-10.1); Creatinine Clr Calc Pharmacy 135.8 ml/min; Est GFR (African American) 104.7 ml/min; Est GFR (Non-African American) 90.4 ml/min; Potassium 4.7 mmol/L (3.5-5.1)
[2021-06-27] MEDS: POLYETHYLENE (MIRALAX) 17 GM PACK PO SCH ×4 (06:30→20:39)
--- NOTE | 2021-06-27 08:19 | Orthopedic Progress Note ---
Date of Service June 27, 2021 Assessment & Plan (1) Lumbar radiculopathy: Plan: At this time initiate physical therapy and assess his progress throughout the weekend. I explained to the patient that we did not proceed with the thoracic component of the procedure. We were close to 5 hours of operative time for the lumbar surgery I felt it would be too high risk to continue for another few hours of surgery. Patient stands agrees. We will assess his progress over the next several days and determine if and when we have to proceed with a thoracic component of this procedure. Admission and Anticipated Discharge Date Admission Date: June 24, 2021 Subjective Back pain controlled denies any leg pain. He feels his numbness is improved. Physical Exam Physical Exam: Patient is in bed. He has sensation to light touch lower extremities. Plantar flexion dorsiflexion quadriceps intact. Results & Data ([facility]) Vital Signs (Past 12 Hours) Vital Signs Temp Pulse Resp BP Pulse Ox 06/27/21 07:36 36.8 C 79 18 122/77 94 06/27/21 04:25 36.8 C 90 16 136/75 95 06/27/21 01:20 80 127/91 06/26/21 22:00 36.5 C 86 18 121/71 94
[2021-06-27] MEDS: GABAPENTIN 300 MG CAP PO SCH ×3 (09:38→20:37)
[2021-06-27] MEDS: METOPROLOL TARTRATE 100 MG TAB PO SCH (09:38)
[2021-06-27] MEDS: PANTOprazole 40 MG TAB PO SCH (09:38)
[2021-06-27] MEDS: FERROUS SULFATE 325 MG TAB PO SCH ×2 (09:39→20:38)
[2021-06-27] MEDS: CHOLECALCIFEROL 1,000 UNITS 25 MCG TAB PO SCH (09:39)
[2021-06-27] MEDS: MULTIVITAMIN TAB PO SCH (09:39)
[2021-06-27] MEDS: CETIRIZINE HCL 10 MG TABLET PO SCH (09:39)
[2021-06-27] MEDS: MAGNESIUM OXIDE 400 MG TAB PO SCH ×2 (09:40→20:37)
[2021-06-27] MEDS: dexAMETHasone 6 MG in SYRINGE 0 ML IV SCH (09:40)
[2021-06-27] MEDS ORDERED: SENNA 8.6 MG TAB PO PRN (19:02)
--- NOTE | 2021-06-27 19:02 | Hospitalist Progress Note ---
Date of Service June 27, 2021 Assessment & Plan (1) Lumbar stenosis with neurogenic claudication: Plan: - Surgical management per primary team -Patient status post L2 S1 thoracic lumbar decompression and fusion however thoracic part was not completed Dr. Toure still evaluating whether the thoracic department did be completed with the additional surgical procedure this week. Patient is ambulating and symptoms have improved (2) Atrial fibrillation, permanent: Plan: - Remains rate controlled/asymptomatic; Follows with Dr. Zhu - Continue Metoprolol 100 mg AM and 50 mg PM - INR is currently 1.0 and has been off warfarin x 5 days - CHADVASC is 2-3 so will need to get back on anticoagulation as soon as hemostasis is achieved and further surgical procedures are out of consideration. If patient is in the hospital for prolonged period time could consider using a short acting anticoagulant if needed (3) Lower urinary tract symptoms due to benign prostatic hyperplasia: Plan: - Continue Alfuzosin 10 mg PM (4) Anemia: Plan: - STABLE; appears normocystic - Continue iron supplementation; monitor for constipation (5) Mild CAD: Plan: - Catheterization approx. 1 year ago with only mild non-occlusive CAD; no angina - Does not appear to be on ASA; did have a gastric lap band in the past - Continue Atorvastatin (6) Hypertension: Plan: - Controlled - Continue Metoprolol - (7) Esophageal reflux: Plan: - Continue Protonix as interchage and Famotidine (8) Dyslipidemia: Plan: - Continue Atorvastatin (9) Diabetes mellitus, controlled: Plan: - Last A1c 5.8 - not on medication - Can monitor with AM labs especially in setting of likely steroids post- operative Plan: Await surgical intervention; Hospitalists will continue to follow Admission and Anticipated Discharge Date Admission Date: June 24, 2021 Subjective Patient's back pain and leg symptoms are much improved patient still has a TRINI drain in place. Orthopedic spine surgery still considering whether additional procedures are warranted Review of Systems Review of Systems: Mild distress and fatigue no headache, no visual changes no speech or swallowing issues no chest pain, pressure or palpitations no shortness of breath, cough or wheezes no abdominal pain, nausea or vomiting, diarrhea or constipation no dysuria, hematuria or frequency no focal joint pain or swelling Persistent back pain but improved no bruising, bleeding or rashes no focal signs of weakness or numbness or altered sensation no complaints of anxiety or depression.. Physical Exam Physical Exam: The patient appeared well nourished and normally developed. Morbidly obese Vital signs as documented. Head exam is normocephalic atraumatic Neck is without JVD, thyromegaly, or carotid bruits. Lungs are clear to auscultation, no focal loss of breath sounds Cardiac exam, Rhythm is regular.. No murmurs, rubs or gallops. Abdominal exam reveals normal bowel sounds, soft non tender, no masses Extremities are nonedematous and both pedal pulses are present Neurologic exam is alert and oriented, no focal loss of strength or sensation Skin is without bruises or rashes Psychologically is without concerns for anxiety or depression.. Results & Data Results & Data ([facility]) Vital Signs (Past 12 Hours) Vital Signs Temp Pulse Resp BP Pulse Ox 06/27/21 15:12 98.4 F 71 16 114/68 96 06/27/21 13:00 98.1 F 86 16 104/66 92 06/27/21 09:34 80 125/70 06/27/21 07:36 98.2 F 79 18 122/77 94 PG Care Time/CCT Total # of Minutes Spent Total Time Spent with Patient: Total time spent is greater than 50% in coordination of care (as documented) at patient's floor/unit and/or counseling patient: Coding Level of Care Code 28994 Subseq Hosp Care Lvl 2 Diagnoses Lumbar stenosis with neurogenic claudication M48.062 Atrial fibrillation, permanent I48.2 Lower urinary tract symptoms due to benign prostatic hyperplasia N40.1 Anemia D64.9 Mild CAD I25.10 Hypertension I10 Esophageal reflux K21.9 Dyslipidemia E78.5 Diabetes mellitus, controlled E11.9
[2021-06-27] MEDS: ATORVASTATIN 40 MG TAB PO SCH (20:37)
[2021-06-27] MEDS: ALFUZOSIN HCL 10 MG TAB PO SCH (20:37)
[2021-06-27] MEDS: DOCUSATE SODIUM/SENNA 50/8.6MG TAB PO SCH (20:37)
[2021-06-27] MEDS: FAMOTIDINE 40 MG TABLET PO SCH (20:38)
[2021-06-27] MEDS: METOPROLOL TARTRATE 50 MG TAB PO SCH (20:39)
[2021-06-27] MEDS: oxyCODONE HCL IR 5 MG TAB (IMMEDIATE RELEASE) PO PRN (23:12)
[2021-06-28] MEDS: POLYETHYLENE (MIRALAX) 17 GM PACK PO SCH ×4 (06:22→20:15)
[2021-06-28] MEDS: traMADol HCL 50 MG TABLET PO PRN ×2 (06:23→23:14)
[2021-06-28] MEDS: MULTIVITAMIN TAB PO SCH (08:49)
[2021-06-28] MEDS: CETIRIZINE HCL 10 MG TABLET PO SCH (08:50)
[2021-06-28] MEDS: PANTOprazole 40 MG TAB PO SCH (08:50)
[2021-06-28] MEDS: FERROUS SULFATE 325 MG TAB PO SCH ×2 (08:50→20:13)
[2021-06-28] MEDS: dexAMETHasone 6 MG in SYRINGE 0 ML IV SCH (08:50)
[2021-06-28] MEDS: CHOLECALCIFEROL 1,000 UNITS 25 MCG TAB PO SCH (08:50)
[2021-06-28] MEDS: GABAPENTIN 300 MG CAP PO SCH ×3 (08:51→20:12)
[2021-06-28] MEDS: MAGNESIUM OXIDE 400 MG TAB PO SCH ×2 (08:51→20:14)
[2021-06-28] MEDS: METOPROLOL TARTRATE 100 MG TAB PO SCH (08:51)
--- NOTE | 2021-06-28 11:57 | Orthopedic Progress Note ---
Date of Service June 28, 2021 Assessment & Plan (1) Lumbar stenosis with neurogenic claudication: Plan: At this time we will continue transfers and ambulation as tolerated. Unfortunately is not able to tolerate the chair in the room. He would be best to sit up on the side of the bed and uses a walker to stand and ambulate with assistance. We may need to consider rehab. Admission and Anticipated Discharge Date Admission Date: June 24, 2021 Subjective Patient's back pain is controlled. He feels the sensation is somewhat improving into the lower extremities. He was able to tolerate physical therapy this morning. Physical Exam Physical Exam: On exam he has good strength plantar flexion dorsiflexion on the right some weakness on the left. Sensory is improved. He appears to be comfortable. Results & Data ([facility]) Vital Signs (Past 12 Hours) Vital Signs Temp Pulse Resp BP Pulse Ox 06/28/21 07:27 36.6 C 90 18 109/69 95
[2021-06-28] MEDS: oxyCODONE HCL IR 5 MG TAB (IMMEDIATE RELEASE) PO PRN (13:28)
--- NOTE | 2021-06-28 14:15 | Hospitalist Progress Note ---
Date of Service June 28, 2021 Assessment & Plan (1) Lumbar stenosis with neurogenic claudication: Plan: - Surgical management per primary team -Patient status post L2 S1 thoracic lumbar decompression and fusion however thoracic part was not completed Dr. Toure still evaluating whether the thoracic department did be completed with the additional surgical procedure this week. Patient is ambulating and symptoms have improved (2) Atrial fibrillation, permanent: Plan: - Remains rate controlled/asymptomatic; Follows with Dr. Zhu - Continue Metoprolol 100 mg AM and 50 mg PM - INR is currently 1.0 and has been off warfarin x 5 days - CHADVASC is 2-3 since no further plans of surgery, will start warfain 06/29 after drain is removed from back (3) Lower urinary tract symptoms due to benign prostatic hyperplasia: Plan: - Continue Alfuzosin 10 mg PM (4) Anemia: Plan: - STABLE; appears normocystic - Continue iron supplementation; monitor for constipation (5) Mild CAD: Plan: - Catheterization approx. 1 year ago with only mild non-occlusive CAD; no angina - Does not appear to be on ASA; did have a gastric lap band in the past - Continue Atorvastatin (6) Hypertension: Plan: - Controlled - Continue Metoprolol - (7) Esophageal reflux: Plan: - Continue Protonix as interchage and Famotidine (8) Dyslipidemia: Plan: - Continue Atorvastatin (9) Diabetes mellitus, controlled: Plan: - Last A1c 5.8 - not on medication - Can monitor with AM labs especially in setting of likely steroids post- operative Plan: Await surgical intervention; Hospitalists will continue to follow Admission and Anticipated Discharge Date Admission Date: June 24, 2021 Subjective She is pain is controlled with 's family when I entered the room Review of Systems Review of Systems: Patient does have some persistent lower extremity neuropathy after surgery Physical Exam Physical Exam: Patient is in no distress able to ambulate short distances remains in rate controlled atrial fibrillation Results & Data Results & Data ([facility]) Vital Signs (Past 12 Hours) Vital Signs Temp Pulse Resp BP Pulse Ox 06/28/21 07:27 97.9 F 90 18 109/69 95 PG Care Time/CCT Total # of Minutes Spent Total Time Spent with Patient: Total time spent is greater than 50% in coordination of care (as documented) at patient's floor/unit and/or counseling patient: Coding Level of Care Code 46952 Subseq Hosp Care Lvl 1 Diagnoses Lumbar stenosis with neurogenic claudication M48.062 Atrial fibrillation, permanent I48.2 Lower urinary tract symptoms due to benign prostatic hyperplasia N40.1 Anemia D64.9 Mild CAD I25.10 Hypertension I10 Esophageal reflux K21.9 Dyslipidemia E78.5 Diabetes mellitus, controlled E11.9
[2021-06-28] MEDS: METOPROLOL TARTRATE 50 MG TAB PO SCH (20:13)
[2021-06-28] MEDS: ALFUZOSIN HCL 10 MG TAB PO SCH (20:13)
[2021-06-28] MEDS: DOCUSATE SODIUM/SENNA 50/8.6MG TAB PO SCH (20:13)
[2021-06-28] MEDS: FAMOTIDINE 40 MG TABLET PO SCH (20:13)
[2021-06-28] MEDS: ATORVASTATIN 40 MG TAB PO SCH (20:13)
[2021-06-29] MEDS: POLYETHYLENE (MIRALAX) 17 GM PACK PO SCH ×3 (06:35→18:17)
[2021-06-29 06:57] LABS: Prothrombin Time 10.3 Seconds (9.0-12.0)
[2021-06-29] MEDS: traMADol HCL 50 MG TABLET PO PRN ×2 (08:43→20:11)
[2021-06-29] MEDS: MAGNESIUM OXIDE 400 MG TAB PO SCH ×2 (08:44→20:13)
[2021-06-29] MEDS: CHOLECALCIFEROL 1,000 UNITS 25 MCG TAB PO SCH (08:44)
[2021-06-29] MEDS: dexAMETHasone 6 MG in SYRINGE 0 ML IV SCH (08:45)
[2021-06-29] MEDS: GABAPENTIN 300 MG CAP PO SCH ×3 (08:45→20:12)
[2021-06-29] MEDS: FERROUS SULFATE 325 MG TAB PO SCH ×2 (08:46→20:12)
[2021-06-29] MEDS: PANTOprazole 40 MG TAB PO SCH (08:46)
[2021-06-29] MEDS: MULTIVITAMIN TAB PO SCH (08:46)
[2021-06-29] MEDS: CETIRIZINE HCL 10 MG TABLET PO SCH (08:46)
[2021-06-29] MEDS: METOPROLOL TARTRATE 100 MG TAB PO SCH (08:46)
--- NOTE | 2021-06-29 13:03 | Orthopedic Progress Note ---
Date of Service June 29, 2021 Assessment & Plan (1) Lumbar stenosis with neurogenic claudication: Plan: Patient is progressing appropriately from his lumbar surgery. His radicular pain is resolved. I am still watching him closely for his known thoracic stenosis and determine if this is contributing to his symptom complex and would ultimately require surgical intervention. Ideally would allow him to heal thoroughly from the lumbar component of this procedure. Continue with physical therapy anticipate discharge in the next few days. Admission and Anticipated Discharge Date Admission Date: June 24, 2021 Subjective Patient's back pain is controlled. He believes this numbness and tingling in the legs is markedly improved. Physical Exam Physical Exam: Patient is ambling the halls with a walker. Is able to stand upright position without evidence of antalgia or leg pain. Results & Data ([facility]) Vital Signs (Past 12 Hours) Vital Signs Temp Pulse Resp BP Pulse Ox 06/29/21 07:39 36.5 C 77 18 111/67 94
[2021-06-29] MEDS ORDERED: WARFARIN SOD 7.5 MG TAB PO SCH ×2 (16:00)
--- NOTE | 2021-06-29 17:24 | Hospitalist Progress Note ---
Date of Service June 29, 2021 Assessment & Plan (1) Lumbar stenosis with neurogenic claudication: Plan: - Surgical management per primary team -Patient status post L2 S1 thoracic lumbar decompression and fusion however thoracic part was not completed Dr. Toure still evaluating whether the thoracic department did be completed with the additional surgical procedure this week. Patient is ambulating and symptoms have improved (2) Atrial fibrillation, permanent: Plan: - Remains rate controlled/asymptomatic; Follows with Dr. Zhu - Continue Metoprolol 100 mg AM and 50 mg PM - INR is currently 1.0 and has been off warfarin x 5 days - CHADVASC is 2-3 since no further plans of surgery, will start warfain after drain is removed from back (3) Lower urinary tract symptoms due to benign prostatic hyperplasia: Plan: - Continue Alfuzosin 10 mg PM (4) Anemia: Plan: - STABLE; appears normocystic - Continue iron supplementation; monitor for constipation (5) Mild CAD: Plan: - Catheterization approx. 1 year ago with only mild non-occlusive CAD; no angina - Does not appear to be on ASA; did have a gastric lap band in the past - Continue Atorvastatin (6) Hypertension: Plan: - Controlled - Continue Metoprolol - (7) Esophageal reflux: Plan: - Continue Protonix as interchage and Famotidine (8) Dyslipidemia: Plan: - Continue Atorvastatin (9) Diabetes mellitus, controlled: Plan: - Last A1c 5.8 - not on medication - Can monitor with AM labs especially in setting of likely steroids post- operative Plan: Await surgical intervention; Hospitalists will continue to follow Admission and Anticipated Discharge Date Admission Date: June 24, 2021 Subjective Pt feels improved walking with PT but has had increased TRINI drainage and this is sanguinous, and will not have anticoagulation started with increased drainage Physical Exam Physical Exam: The patient appeared well, improved Vital signs as documented. Lungs are clear to auscultation and appear unlabored Cardiac exam, Rhythm is regular.. No murmurs, rubs or gallops. Abdominal exam reveals normal bowel sounds, soft non tender, no masses Extremities are nonedematous and both pedal pulses are normal. Neurologic exam is alert and oriented, no focal loss of strength or sensation TRINI drain has increased drainage Results & Data Results & Data ([facility]) Vital Signs (Past 12 Hours) Vital Signs Temp Pulse Resp BP Pulse Ox 06/29/21 15:39 98.1 F 86 18 136/67 94 06/29/21 07:39 97.7 F 77 18 111/67 94 PG Care Time/CCT Total # of Minutes Spent Total Time Spent with Patient: Total time spent is greater than 50% in coordination of care (as documented) at patient's floor/unit and/or counseling patient: Coding Level of Care Code None Diagnoses Lumbar stenosis with neurogenic claudication M48.062 Atrial fibrillation, permanent I48.2 Lower urinary tract symptoms due to benign prostatic hyperplasia N40.1 Anemia D64.9 Mild CAD I25.10 Hypertension I10 Esophageal reflux K21.9 Dyslipidemia E78.5 Diabetes mellitus, controlled E11.9
[2021-06-29] MEDS: ALFUZOSIN HCL 10 MG TAB PO SCH (20:12)
[2021-06-29] MEDS: ATORVASTATIN 40 MG TAB PO SCH (20:13)
[2021-06-29] MEDS: FAMOTIDINE 40 MG TABLET PO SCH (20:13)
[2021-06-29] MEDS: DOCUSATE SODIUM/SENNA 50/8.6MG TAB PO SCH (20:13)
[2021-06-29] MEDS: METOPROLOL TARTRATE 50 MG TAB PO SCH (20:14)
[2021-06-30 06:30] LABS: Prothrombin Time 10.3 Seconds (9.0-12.0)
--- NOTE | 2021-06-30 07:02 | Hospitalist Progress Note ---
Date of Service June 29, 2021 Assessment & Plan (1) Lumbar stenosis with neurogenic claudication: Plan: - Surgical management per primary team -Patient status post L2 S1 thoracic lumbar decompression and fusion however thoracic part was not completed Dr. Toure still evaluating whether the thoracic department did be completed with the additional surgical procedure this week. Patient is ambulating and symptoms have improved (2) Atrial fibrillation, permanent: Plan: - Remains rate controlled/asymptomatic; Follows with Dr. Zhu - Continue Metoprolol 100 mg AM and 50 mg PM - INR is currently 1.0 and has been off warfarin x 5 days - CHADVASC is 2-3 since no further plans of surgery, will start warfain after drain is removed from back (3) Lower urinary tract symptoms due to benign prostatic hyperplasia: Plan: - Continue Alfuzosin 10 mg PM (4) Anemia: Plan: - STABLE; acute blood loss anemia - Continue iron supplementation; monitor for constipation (5) Mild CAD: Plan: - Catheterization approx. 1 year ago with only mild non-occlusive CAD; no angina - Does not appear to be on ASA; did have a gastric lap band in the past - Continue Atorvastatin (6) Hypertension: Plan: - Controlled - Continue Metoprolol - (7) Esophageal reflux: Plan: - Continue Protonix as interchage and Famotidine (8) Dyslipidemia: Plan: - Continue Atorvastatin (9) Diabetes mellitus, controlled: Plan: - Last A1c 5.8 - not on medication - Can monitor with AM labs especially in setting of likely steroids post- operative Plan: Await surgical intervention; Hospitalists will continue to follow Admission and Anticipated Discharge Date Admission Date: June 24, 2021 Results & Data Results & Data ([facility]) Vital Signs (Past 12 Hours) Vital Signs Temp Pulse Resp BP Pulse Ox 06/29/21 15:39 98.1 F 86 18 136/67 94 06/29/21 07:39 97.7 F 77 18 111/67 94 PG Care Time/CCT Total # of Minutes Spent Total Time Spent with Patient: Total time spent is greater than 50% in coordination of care (as documented) at patient's floor/unit and/or counseling patient: Coding Level of Care Code None Diagnoses Lumbar stenosis with neurogenic claudication M48.062 Atrial fibrillation, permanent I48.2 Lower urinary tract symptoms due to benign prostatic hyperplasia N40.1 Anemia D64.9 Mild CAD I25.10 Hypertension I10 Esophageal reflux K21.9 Dyslipidemia E78.5 Diabetes mellitus, controlled E11.9
--- NOTE | 2021-06-30 08:59 | Orthopedic Progress Note ---
Date of Service June 30, 2021 Assessment & Plan (1) Lumbar stenosis with neurogenic claudication: Plan: This time we will continue physical therapy monitor his TRINI output hopefully will be accepted to rehab the next day or so. Admission and Anticipated Discharge Date Admission Date: June 24, 2021 Subjective Patient's back pain is controlled leg symptoms steadily improving. Physical Exam Physical Exam: Patient is sitting upright in bed. He has good strength testing lower extremities. Appears comfortable. Results & Data ([facility]) Vital Signs (Past 12 Hours) Vital Signs Temp Pulse Resp BP Pulse Ox 06/30/21 07:23 36.7 C 74 16 119/71 96 06/29/21 22:17 36.8 C 80 18 128/79 96
[2021-06-30] MEDS: MAGNESIUM OXIDE 400 MG TAB PO SCH ×2 (09:27→20:18)
[2021-06-30] MEDS: METOPROLOL TARTRATE 100 MG TAB PO SCH (09:27)
[2021-06-30] MEDS: PANTOprazole 40 MG TAB PO SCH (09:27)
[2021-06-30] MEDS: FERROUS SULFATE 325 MG TAB PO SCH ×2 (09:27→20:17)
[2021-06-30] MEDS: GABAPENTIN 300 MG CAP PO SCH ×3 (09:27→20:17)
[2021-06-30] MEDS: MULTIVITAMIN TAB PO SCH (09:27)
[2021-06-30] MEDS: CHOLECALCIFEROL 1,000 UNITS 25 MCG TAB PO SCH (09:27)
[2021-06-30] MEDS: CETIRIZINE HCL 10 MG TABLET PO SCH (09:27)
[2021-06-30] MEDS: oxyCODONE HCL IR 5 MG TAB (IMMEDIATE RELEASE) PO PRN ×2 (13:08→23:06)
[2021-06-30] MEDS: METOPROLOL TARTRATE 50 MG TAB PO SCH (20:16)
[2021-06-30] MEDS: FAMOTIDINE 40 MG TABLET PO SCH (20:16)
[2021-06-30] MEDS: DOCUSATE SODIUM/SENNA 50/8.6MG TAB PO SCH (20:16)
[2021-06-30] MEDS: ALFUZOSIN HCL 10 MG TAB PO SCH (20:17)
[2021-06-30] MEDS: ATORVASTATIN 40 MG TAB PO SCH (20:17)
--- NOTE | 2021-06-30 20:39 | Communication Note ---
Date of Service: June 30, 2021 Patient has remained stable but continues with serosanguineous discharge from his TRINI drain. Subsequently anticoagulation atrial fibrillation is postponed another day. Will check hemoglobin on 07/01/2021
[2021-07-01 06:36] LABS: Hematocrit (blood only) 24.5 % (42-52); Hemoglobin 7.7 g/dL (14.0-18.0); Mean Corpuscular Hemoglobin 29.8 pg (25-34); Mean Corpuscular Hgb Conc 31.4 g/dL (32-36); Mean Platelet Volume 9.2 fL (7.4-10.4); Nucleated RBC # (auto) 0.06 K/uL (0-0); Nucleated RBC % (auto) 0.6 %; Platelet Count 238 K/uL (130-400); RDW Coefficient of Variation 14.2 % (11.5-14.5); RDW Standard Deviation 48.6 fL (36.4-46.3); Red Blood Count 2.58 M/uL (4.7-6.1)
[2021-07-01 06:52] LABS: Creatinine Clr Calc Pharmacy 116.8 ml/min; Est GFR (African American) 90.5 ml/min; Est GFR (Non-African American) 78.1 ml/min; Potassium 4.4 mmol/L (3.5-5.1)
--- NOTE | 2021-07-01 08:28 | Orthopedic Progress Note ---
Date of Service July 01, 2021 Assessment & Plan (1) Myelopathy concurrent with and due to spinal stenosis of thoracic region: Plan: Discussion today with this patient regarding his progress with physical therapy and current symptom complex. He still struggling with balance gait particular affecting the right leg. Was hoping to postpone his thoracic procedure for several weeks to allow his lumbar procedure to recover heal and recover. However he is not improving and he is comfortable with moving forward. I agree with this plan. We will proceed with a decompression fusion T10-T11. I will make him n.p.o. after midnight and plan for surgery in a.m. Admission and Anticipated Discharge Date Admission Date: June 24, 2021 Physical Exam Physical Exam: Patient is in bed. Is comfortable at this time. He does have reasonable plantar flexion dorsiflexion but still difficulty with with raising his right leg off of the bed compared to the left. Results & Data ([facility]) Vital Signs (Past 12 Hours) Vital Signs Temp Pulse Resp BP Pulse Ox 07/01/21 07:21 36.8 C 90 16 112/65 94 06/30/21 22:51 36.5 C 81 18 127/71 93
[2021-07-01] MEDS ORDERED: SODIUM CHLORIDE 0.9% 250 ML IV PRN ×2 (08:44→08:59)
--- NOTE | 2021-07-01 08:47 | Hospitalist Progress Note ---
Date of Service July 01, 2021 Assessment & Plan (1) Lumbar stenosis with neurogenic claudication: Plan: - Surgical management per primary team -Patient status post L2 S1 thoracic lumbar decompression and fusion however thoracic part was not completed Dr. Toure to perform additional surgical procedure this week tentatively scheduled for 07/02/2021 Patient is ambulating has persistent neuropathy paresthesias especially to the right leg (2) Atrial fibrillation, permanent: Plan: - Remains rate controlled/asymptomatic; Follows with Dr. Zhu - Continue Metoprolol 100 mg AM and 50 mg PM - INR is currently 1.0 and has been off warfarin since preoperative time - CHADVASC is 2-3 since no further plans of surgery, cannot restart warfarin as a continue of serosanguineous drainage (3) Lower urinary tract symptoms due to benign prostatic hyperplasia: Plan: - Continue Alfuzosin 10 mg PM (4) Anemia: Plan: Acute blood loss anemia-now will transfuse one unit, maybe back to OR 07/02/20 - Continue iron supplementation; monitor for constipation (5) Mild CAD: Plan: - Catheterization approx. 1 year ago with only mild non-occlusive CAD; no angina - Does not appear to be on ASA; did have a gastric lap band in the past - Continue Atorvastatin (6) Hypertension: Plan: - Controlled - Continue Metoprolol - (7) Esophageal reflux: Plan: - Continue Protonix as interchage and Famotidine (8) Dyslipidemia: Plan: - Continue Atorvastatin (9) Diabetes mellitus, controlled: Plan: - Last A1c 5.8 - not on medication - Can monitor with AM labs especially in setting of likely steroids post- operative Plan: Await surgical intervention; Hospitalists will continue to follow Admission and Anticipated Discharge Date Admission Date: June 24, 2021 Subjective Patient was seen today as he is having acute blood loss anemia postoperatively with continued serosanguineous drainage from his TRINI drain and now scheduled for return to surgery on 07/02 otherwise has persistent neuropathy to his feet worse on his right side Review of Systems Review of Systems: Mild distress and fatigue no headache, no visual changes no speech or swallowing issues no chest pain, pressure or palpitations no shortness of breath, cough or wheezes no abdominal pain, nausea or vomiting, diarrhea or constipation no dysuria, hematuria or frequency no focal joint pain or swelling Persistent back pain radiating bilaterally worse on the right side no bruising, bleeding or rashes Paresthesias to the right leg burning type sensation no complaints of anxiety or depression.. Physical Exam Physical Exam: The patient appeared well, improved Vital signs as documented. Lungs are clear to auscultation and appear unlabored Cardiac exam, Rhythm is regular.. No murmurs, rubs or gallops. Abdominal exam reveals normal bowel sounds, soft non tender, no masses Extremities are nonedematous and both pedal pulses are normal. Neurologic exam is alert and oriented, no focal loss of strength or sensation TRINI drain has increased drainage serosanguineous Results & Data Results & Data ([facility]) Vital Signs (Past 12 Hours) Vital Signs Temp Pulse Resp BP Pulse Ox 07/01/21 07:21 98.2 F 90 16 112/65 94 06/30/21 22:51 97.7 F 81 18 127/71 93 PG Care Time/CCT Total # of Minutes Spent Total Time Spent with Patient: Total time spent is greater than 50% in coordination of care (as documented) at patient's floor/unit and/or counseling patient: Coding Level of Care Code 24028 Subseq Hosp Care Lvl 2 Diagnoses Lumbar stenosis with neurogenic claudication M48.062 Atrial fibrillation, permanent I48.2 Lower urinary tract symptoms due to benign prostatic hyperplasia N40.1 Anemia D64.9 Mild CAD I25.10 Hypertension I10 Esophageal reflux K21.9 Dyslipidemia E78.5 Diabetes mellitus, controlled E11.9
[2021-07-01] MEDS: FERROUS SULFATE 325 MG TAB PO SCH ×2 (09:42→20:15)
[2021-07-01] MEDS: CETIRIZINE HCL 10 MG TABLET PO SCH (09:42)
[2021-07-01] MEDS: MAGNESIUM OXIDE 400 MG TAB PO SCH ×2 (09:42→20:14)
[2021-07-01] MEDS: METOPROLOL TARTRATE 100 MG TAB PO SCH (09:42)
[2021-07-01] MEDS: GABAPENTIN 300 MG CAP PO SCH ×3 (09:42→20:14)
[2021-07-01] MEDS: MULTIVITAMIN TAB PO SCH (09:43)
[2021-07-01] MEDS: PANTOprazole 40 MG TAB PO SCH (09:43)
[2021-07-01] MEDS: CHOLECALCIFEROL 1,000 UNITS 25 MCG TAB PO SCH (09:43)
[2021-07-01] MEDS: oxyCODONE HCL IR 5 MG TAB (IMMEDIATE RELEASE) PO PRN ×2 (12:51→23:05)
--- NOTE | 2021-07-01 15:10 | Anesthesiology Consultation ---
Date of Service July 01, 2021 The patient tolerated back surgery on 06/26/21. His hgb is now 7.7 down from 11.1 on the day of surgery. He is receiving a blood transfusion now. He will need to have his hgb rechecked prior to surgery. Assessment & Plan (1) Encounter for pre-operative examination: Chart Review Chart Review: Pending: Refer to Additional Notes / Consult section (recheck of hemoglobin tomorrow) and Patient NOT seen in Pre Admission Testing Consults Requested none the medicine team is following the patient in the hospital History Surgery Operation Date: 06/26/21 10:05 Proposed Procedures p T11-S1 Thoraco Lumbar Decompression Instrumentation Fusion - Candido Toure DO Operation Date: 07/02/21 11:25 Proposed Procedures p T10-T11 Decompression Fusion - Candido Toure DO Height/Weight Height: 6 ft 3 in Weight: 157.397 kg Allergies Allergy/AdvReac Type Severity Reaction Status Date / Time hydrochlorothiazide Allergy Mild Hypotension Verified 06/24/21 08:27 [From Aldoril D30] methyldopa [From Aldoril D30] Allergy Mild Hypotension Verified 06/24/21 08:27 Medications Home Medications Medication Instructions Recorded Confirmed Last Taken magnesium oxide 400 mg (241.3 mg 400 mg PO BID #180 tab 01/17/19 06/24/21 09/23/20 22:00 magnesium) tablet cetirizine 10 mg tablet 10 mg PO QAM 03/20/19 06/24/21 09/23/20 08:00 cholecalciferol (vitamin D3) 25 1,000 units PO QAM 03/20/19 06/24/21 09/23/20 08:00 mcg (1,000 unit) tablet multivitamin (Multiple Vitamins) 1 tab PO QAM 03/20/19 06/24/21 09/23/20 08:00 warfarin 10 mg tablet 10 mg PO .COMPLEX #24 tab 04/25/20 06/24/21 09/16/20 docusate sodium 100 mg capsule 100 mg PO BID 08/14/20 06/24/21 09/23/20 22:00 (Stool Softener) tadalafil 10 mg tablet 18.5 mg PO DAILY PRN #90 tab 09/04/20 06/24/21 Unknown ferrous sulfate 325 mg (65 mg 325 mg PO BID #60 tab 09/26/20 06/24/21 Unknown iron) tablet,delayed release diclofenac sodium 1 % topical gel 4 g EXT QID PRN #1 tube 09/28/20 06/24/21 Unknown (Voltaren) metoprolol tartrate 100 mg tablet See Rx Instructions PO .COMPLEX 12/02/20 06/24/21 06/24/21 atorvastatin 40 mg tablet 40 mg PO HS #90 tab 02/02/21 06/24/21 Unknown lansoprazole 30 mg capsule,delayed 30 mg PO QAM #90 cap 02/04/21 06/24/21 0 06/24/21 release famotidine 40 mg tablet 40 mg PO QPM #90 tab 04/08/21 06/24/21 Unknown gabapentin 300 mg capsule 300 mg PO TID #270 cap 04/08/21 06/24/21 06/24/21 warfarin 7.5 mg tablet 7.5 mg PO .COMPLEX #65 tab 05/19/21 06/24/21 Unknown alfuzosin 10 mg tablet,extended 10 mg PO QPM 05/28/21 06/24/21 Unknown release 24 hr celecoxib 100 mg capsule (Celebrex) 100 mg PO QAM 05/28/21 06/24/21 Unknown oxycodone 5 mg tablet 5 mg PO Q6H PRN #30 tab 06/29/21 Unknown tramadol 50 mg tablet 50 mg PO Q6H PRN #30 tab 06/29/21 Unknown furosemide 20 mg tablet (Lasix) 20 mg PO QAM #60 tab 06/30/21 Unknown Active Medications Generic Name Dose Route Start Last Admin Trade Name Lisa PRN Reason Stop Dose Admin Alfuzosin HCl 10 mg 06/24/21 21:00 06/30/21 20:17 Alfuzosin Hcl 10 Mg Tab PO 07/24/21 20:59 10 mg QPM DALILA Administration Atorvastatin Calcium 40 mg 06/24/21 21:00 06/30/21 20:17 Atorvastatin 40 Mg Tab PO 07/24/21 20:59 40 mg HS DALILA Administration Cetirizine HCl 10 mg 06/25/21 09:00 07/01/21 09:42 Cetirizine Hcl 10 Mg Tablet PO 07/25/21 08:59 10 mg QAM DALILA Administration Famotidine 40 mg 06/24/21 21:00 06/30/21 20:16 Famotidine 40 Mg Tablet PO 07/24/21 20:59 40 mg QPM DALILA Administration Ferrous Sulfate 325 mg 06/24/21 21:00 07/01/21 09:42 Ferrous Sulfate 325 Mg Tab PO 07/24/21 20:59 325 mg BID DALILA Administration Gabapentin 300 mg 06/24/21 21:00 07/01/21 13:04 Gabapentin 300 Mg Cap PO 07/24/21 20:59 300 mg TID DALILA Administration Magnesium Oxide 400 mg 06/24/21 21:00 07/01/21 09:42 Magnesium Oxide 400 Mg Tab PO 07/24/21 20:59 400 mg BID DALILA Administration Metoprolol Tartrate 100 mg 06/25/21 09:00 07/01/21 09:42 Metoprolol Tartrate 100 Mg Tab PO 07/25/21 08:59 100 mg QAM DALILA Administration Metoprolol Tartrate 50 mg 06/24/21 21:00 06/30/21 20:16 Metoprolol Tartrate 50 Mg Tab PO 07/24/21 20:59 50 mg QPM DALILA Administration Multivitamins 1 tab 06/25/21 09:00 07/01/21 09:43 Multivitamin Tab PO 07/25/21 08:59 1 tab QAM DALILA Administration Oxycodone HCl 5 - 10 mg 06/26/21 16:07 07/01/21 12:51 Oxycodone Hcl Ir 5 Mg Tab (Immediate Release) PO 07/10/21 16:06 5 mg Q4H PRN Administration Pain & Pre PT Pantoprazole Sodium 40 mg 06/25/21 09:00 07/01/21 09:43 Pantoprazole 40 Mg Tab PO 07/25/21 08:59 40 mg QAM DALILA Administration Senna/Docusate Sodium 2 tab 06/26/21 21:00 06/30/21 20:16 Docusate Sodium/Senna 50/8.6mg Tab PO 07/26/21 20:59 2 tab HS DALILA Administration Sennosides 17.2 mg 06/27/21 19:02 06/28/21 20:27 Senna 8.6 Mg Tab PO 07/27/21 19:14 17.2 mg DAILY PRN Administration constipation Tramadol HCl 50 - 100 mg 06/26/21 16:07 06/29/21 20:11 Tramadol Hcl 50 Mg Tablet PO 07/26/21 16:06 50 mg Q4H PRN Administration Moderate-Severe pain & Pre PT Vitamin D 1,000 units 06/25/21 09:00 07/01/21 09:43 Cholecalciferol 1,000 Units 25 Mcg Tab PO 07/25/21 08:59 1,000 units QAM DALILA Administration NPO Date Last Intake of Fluids: 06/25/21 Time Last Intake of Fluids: 23:30 Date Last Intake of Solids: 06/25/21 Time Last Intake of Solids: 18:00 Past Medical History Medical History Anemia on iron supplementation Atrial fibrillation, permanent Follows with Dr. Gama; on warfarin Woodard's esophagus Benign localized hyperplasia of prostate with urinary obstruction Benign positional vertigo last episode > 1 yr ago Cardiomegaly DM type 2 (diabetes mellitus, type 2) diet controlled Dyslipidemia Esophageal reflux controlled, stable per pt Hypertension controlled, stable per pt Mild CAD 03/2020 - heart cath by Dr Christiano Zhu; nonobstructive CAD Morbid obesity with BMI of 40.0-44.9, adult CIRA on CPAP 100% compliant. Osteoarthritis Polyneuropathy Past Family History Family History Father Heart disease Lung disease Myocardial infarction Mother Hypertension Uterine cancer Other Diabetes Past Surgical History Surgical History History of esophagogastroduodenoscopy (EGD) History of left hip replacement History of right hip replacement 09/24/2020: SAB at L3-L4, 2 attempts. No issues per anesthesia postop progress note. Hx of laparoscopic gastric banding 2010 S/P cardiac cath 03/2020 [place] - no stents/angioplasty S/P colonoscopy S/P knee replacement bilateral left 04/23/2019: SAB at L4-L5, 2 attempts + PNB. No issues per anesthesia postop progress note. S/P rotator cuff repair RIGHT/LEFT right 08/22/2017: Grade 1 view, MAC#4, ETT#8.0 atraumatic x 1 + PNB. No issues per anesthesia postop progress note. Social History Smoking Status: Former smoker Do You Dip or Chew Tobacco: No Hx Alcohol Use: Yes Alcohol type: beer alcohol intake frequency: holidays/special occasions only Hx Substance Use: No substance use type: does not use Physical Exam Vital Signs Last Vital Signs Temp 36.6 C 07/01/21 14:34 Pulse 86 07/01/21 14:34 Resp 16 07/01/21 14:34 BP 114/72 07/01/21 14:34 Pulse Ox 96 07/01/21 14:34 Testing Laboratory Results 07/01/21 05:37 07/01/21 05:37 PT 10.3 Seconds (9.0-12.0) 06/30/21 05:49 INR 1.0 (0.9-1.1) 06/30/21 05:49 APTT 26.3 Seconds (21.0-31.0) 06/24/21 08:10 Blood Type O Positive 07/01/21 09:25 Antibody Screen NEGATIVE 07/01/21 09:25 Electrocardiogram Date: 06/25/21 Findings: + AFIB @ (at 77) and + RBBB Echocardiogram Date: 08/04/15 EF: 50% LV Function: normal (low Normal) RWMA: + none Other Findings: + LVH (moderate) RV-mildly dilated Cardiac Catheterization Date: 03/06/20 Findings: + RCA (prox-mid 20-30%), + LMA (NL) and + LCX (OM1- prox 30-40%); no valve disease LAD-LI's
[2021-07-01] MEDS: ATORVASTATIN 40 MG TAB PO SCH (20:13)
[2021-07-01] MEDS: ALFUZOSIN HCL 10 MG TAB PO SCH (20:14)
[2021-07-01] MEDS: DOCUSATE SODIUM/SENNA 50/8.6MG TAB PO SCH (20:14)
[2021-07-01] MEDS: FAMOTIDINE 40 MG TABLET PO SCH (20:14)
[2021-07-01] MEDS: METOPROLOL TARTRATE 50 MG TAB PO SCH (20:15)
[2021-07-02] MEDS: FERROUS SULFATE 325 MG TAB PO SCH ×2 (08:02→20:34)
[2021-07-02] MEDS: MAGNESIUM OXIDE 400 MG TAB PO SCH ×2 (08:02→20:32)
[2021-07-02] MEDS: CETIRIZINE HCL 10 MG TABLET PO SCH (08:02)
[2021-07-02] MEDS: CHOLECALCIFEROL 1,000 UNITS 25 MCG TAB PO SCH (08:02)
[2021-07-02] MEDS: PANTOprazole 40 MG TAB PO SCH (08:02)
[2021-07-02] MEDS: MULTIVITAMIN TAB PO SCH (08:02)
[2021-07-02] MEDS: GABAPENTIN 300 MG CAP PO SCH ×3 (08:02→20:33)
[2021-07-02] MEDS: METOPROLOL TARTRATE 100 MG TAB PO SCH (08:02)
--- NOTE | 2021-07-02 11:36 | History & Physical Bridge Note ---
Date of Service July 02, 2021 History & Physical Bridge Note I have examined the patient, reviewed the History & Physical and in the interval since the performance of the History & Physical I have noted the following changes of clinical significance: Patient continues demonstrate evidence of thoracic myelopathy and is here for T11-T12 decompression fusion.
[2021-07-02] MEDS ORDERED: fentaNYL citrate 100 MCG/2 ML VIAL IV PRN (11:42)
[2021-07-02] MEDS ORDERED: PROMETHAZINE HCL 6.25 MG in SODIUM CHLORIDE 0.9% 50 ML IV PRN (11:42)
[2021-07-02] MEDS ORDERED: HYDROmorphone INJ 1 MG/ML SYRINGE IV PRN (11:42)
[2021-07-02] MEDS ORDERED: ATROPINE SULFATE 0.1 MG/ML 10ML SYR IV PRN (11:42)
[2021-07-02] MEDS ORDERED: ONDANSETRON INJ 2 MG/ML 2 ML VIAL IV PRN (11:42)
[2021-07-02] MEDS ORDERED: ePHEDrine sulfate 50 MG/ML AMP IV PRN (11:42)
[2021-07-02] MEDS ORDERED: LARYING-O-JET KIT (LTA) ONE (11:44)
[2021-07-02] MEDS ORDERED: PROPOFOL IV EMULSION 10 MG/ML 20 ML VIAL IV ONE (11:44)
[2021-07-02] MEDS ORDERED: fentaNYL citrate 100 MCG/2 ML VIAL ONE (11:44)
[2021-07-02] MEDS ORDERED: DEXAMETHASONE SOD INJ 4 MG/ML VIAL ONE (11:44)
[2021-07-02] MEDS ORDERED: ONDANSETRON INJ 2 MG/ML 2 ML VIAL ONE (11:44)
[2021-07-02] MEDS ORDERED: LIDOCAINE 2% 2 ML VIAL/AMP(20MG/ML) INFIL ONE (11:44)
[2021-07-02] MEDS ORDERED: ROCURONIUM BROMIDE 10 MG/ML 5 ML VIAL IV ONE (11:44)
[2021-07-02] MEDS ORDERED: MIDAZOLAM HCL 1 MG/ML 2ML VIAL ONE (11:45)
[2021-07-02] MEDS ORDERED: BUPIVACAINE/EPINEPHRINE 0.25% 1:200,000 30 ML VIAL ONE (11:52)
[2021-07-02] MEDS ORDERED: ceFAZolin 330 MG/ML 1 GM VIAL ONE ×2 (11:52→12:38)
[2021-07-02] MEDS ORDERED: KETAMINE 50 MG/5 ML SYRINGE ONE (12:38)
[2021-07-02] MEDS ORDERED: HYDROmorphone INJ 2 MG/ML SYR/VIAL ONE (13:45)
[2021-07-02] MEDS ORDERED: FLOSEAL HEMOSTATIC MATRIX 10ML TOP ONE (13:50)
--- NOTE | 2021-07-02 13:57 | Operative Report ---
Post Operative Report Pre & Post Diagnosis Operation Date: 06/26/21 10:05 Pre-Op Diagnosis: Lumbar stenosis with neurogenic claudication Post-Op Diagnosis: Lumbar stenosis with neurogenic claudication Operation Date: 07/02/21 11:25 Pre-Op Diagnosis: Myelopathy concurrent with and due to spinal stenosis of thoracic region Post-Op Diagnosis: Myelopathy concurrent with and due to spinal stenosis of thoracic region I identified the patient and participated in the time-out.: Yes Procedure Operation Date: 06/26/21 10:05 Actual Procedures p L2-S1 Thoracic Lumbar Decompression and Fusion, Spinal Cord Monitoring, Application of Bone Morphogenetic Protein and I-Factor. (Not Applicable) - Candido Toure DO Operation Date: 07/02/21 11:25 Actual Procedures #1 thoracic decompression with bilateral medial facetectomies and foraminotomies T10-T11 and T11-T12. #2 posterior spinal fusion T11-T12. #3 placement posterior instrumentation T11-T12. #4 placement locally harvested morselized autograft in the posterior gutters. #5 placement of infuse collagen sponge, and master graft to posterior gutters T11-T12. Surgeon Candido Toure DO Purifying Plant Operator Mikala Keene Estimated Blood Loss 1,800 Findings See Below The patient is 6 feet 3 inches tall weighing over 100 eccentric kilograms with a BMI in excess of 43. The patient's body habitus did create significant technical difficulty required deepest retractors longus instruments in order to perform his procedure. This had at least 50% increased operative time. Specimens None Indications This is a 65-year-old male that is known thoracic spinal stenosis. He did undergo a lumbar decompression fusion but continued to note deficits with his right greater than left leg and we elected undergo the above-mentioned procedure. Description of Procedure Patient was met with identified informed consent obtained. Patient was then taken to the operative suite underwent a patient placed in a prone position on a Berny table top Dannie frame. All bony prominences well-padded eyes inspected to ensure no external pressure placed upon the. This point the thoracolumbar spine was prepped and draped in a sterile fashion. Sharp dissection with the assistance of Bovie cautery was performed down to and exposing the lamina and transverse processes of T11 and T12. From caudal cephalad fashion complete laminectomy of 11 partial neck PFT 10 was performed occluding bilateral medial facetectomies foraminotomies addressing severe spinal stenosis. Marked facet hypertrophy and adhesions to the dura was identified. After complete decompression pedicle screws were placed in T11-T12 with appropriate sized rods locked into position. The transverse processes of T11 and T12 burred to subcortically bone. Infuse collagen sponge master graft local graft was placed in the posterior gutters. 15 round TRINI drain inserted. Incision was then closed with 1 Vicryl to fascia 2-0 Vicryl subcutaneously and 4 Monocryl for final skin closure. Steri-Strip Steri-Strips placed. Patient will continue PACU stable condition. Please note spinal cord monitoring was utilized at the procedure no changes noted. Lastly Mikala Keene was present at the entire surgeon while the patient positioning complex portions of the surgery and final skin closure. I attest to the content of the Intraoperative Record and any orders documented therein. Any exceptions are noted below.
--- NOTE | 2021-07-02 15:43 | Anesthesiology Progress Note ---
Date of Service July 02, 2021 Anesthesia Post Procedure Vital Signs Vital Signs: Temp Pulse Pulse Pulse Resp BP BP 07/02/21 15:15 83 15 113/68 07/02/21 15:05 78 18 114/81 07/02/21 14:55 36.4 C L 86 17 120/73 07/02/21 14:45 81 14 118/71 07/02/21 14:35 85 18 116/81 07/02/21 14:25 80 15 106/73 07/02/21 14:15 36.3 C L 84 14 101/66 07/02/21 11:10 37.2 C 76 20 102/62 07/02/21 07:57 37 C 79 16 07/01/21 23:02 92 H 118/75 07/01/21 20:16 37.2 C 97 H 19 153/79 H 07/01/21 16:01 36.7 C 84 16 122/73 BP Pulse Ox 07/02/21 15:15 96 07/02/21 15:05 95 07/02/21 14:55 100 07/02/21 14:45 100 07/02/21 14:35 100 07/02/21 14:25 99 07/02/21 14:15 94 07/02/21 11:10 94 07/02/21 07:57 154/71 H 93 07/01/21 23:02 07/01/21 20:16 94 07/01/21 16:01 94 Pain Intensity Back: Pain Intensity: 3 Transfer of Care Handoff Completed per policy Notes Mental Status: alert / awake / arousable Patient Amnestic to Procedure: Yes Nausea / Vomiting: adequately controlled Pain: adequately controlled Airway Patency, RR, SpO2: stable & adequate BP & HR: stable & adequate Hydration State: stable & adequate Anesthetic Complications: no major complications apparent
--- NOTE | 2021-07-02 16:02 | Fluoroscopy Report ---
[place] thoracic spine 2V CLINICAL HISTORY: T10-11 DECOMPRESSION/FUSION TECHNIQUE: 2 views were obtained with the C-arm in the OR with the above procedure. Total fluoroscopy time was 33.7 seconds. Total skin dose was 41.2 mGy. Comparison: None available at the time of this dictation. FINDINGS/IMPRESSION: Intraoperative images were obtained of the compression fusion of the lower thora cic spine. Please correlate with intraoperative fluoroscopy and operative report. ACT 112: Negative or not required by law. Electronically signed by: Leodan Nicholas M.D. 07/02/2021 4:01 PM
[2021-07-02] MEDS: HYDROmorphone INJ 1 MG/ML SYRINGE IV PRN ×2 (16:10→23:07)
--- NOTE | 2021-07-02 18:20 | Hospitalist Progress Note ---
Date of Service July 02, 2021 Assessment & Plan (1) Lumbar stenosis with neurogenic claudication: Plan: - Surgical management per primary team - Anticipate possible surgical intervention on Tuesday (2) Atrial fibrillation, permanent: Plan: - Remains rate controlled/asymptomatic; Follows with Dr. Zhu - Continue Metoprolol 100 mg AM and 50 mg PM - INR is currently 1.0 and has been off warfarin x 5 days -- Did send a [place] to primary to see if bridging with Lovenox is warranted but until knowing when surgery is could probably hold one more day - CHADVASC is 2-3 so will need to get back on anticoagulation as soon as surgically safe (3) Lower urinary tract symptoms due to benign prostatic hyperplasia: Plan: - Continue Alfuzosin 10 mg PM (4) Anemia: Plan: -Acute blood loss anemia status post 1 unit transfusion packed red blood cells - Continue iron supplementation; monitor for constipation (5) Mild CAD: Plan: - Catheterization approx. 1 year ago with only mild non-occlusive CAD; no angina - Does not appear to be on ASA; did have a gastric lap band in the past - Continue Atorvastatin (6) Hypertension: Plan: - Controlled - Continue Metoprolol - Hold Lasix pre-operatively (7) Esophageal reflux: Plan: - Continue Protonix as interchage and Famotidine (8) Dyslipidemia: Plan: - Continue Atorvastatin (9) Diabetes mellitus, controlled: Plan: - Last A1c 5.8 - not on medication - Admission and Anticipated Discharge Date Admission Date: June 24, 2021 Subjective Patient was seen today as he is having acute blood loss anemia postoperatively with continued serosanguineous drainage from his TRINI drain and now scheduled for return to surgery on 07/02. Patient has improved with transfusion 1 unit. Otherwise has persistent neuropathy to his feet worse on his right side Review of Systems Review of Systems: Mild distress and fatigue no headache, no visual changes no speech or swallowing issues no chest pain, pressure or palpitations no shortness of breath, cough or wheezes no abdominal pain, nausea or vomiting, diarrhea or constipation no dysuria, hematuria or frequency no focal joint pain or swelling Persistent back pain radiating bilaterally worse on the right side no bruising, bleeding or rashes Paresthesias to the right leg burning type sensation no complaints of anxiety or depression.. Physical Exam Physical Exam: The patient appeared well, improved Vital signs as documented. Lungs are clear to auscultation and appear unlabored Cardiac exam, Rhythm is regular.. No murmurs, rubs or gallops. Abdominal exam reveals normal bowel sounds, soft non tender, no masses Extremities are nonedematous and both pedal pulses are normal. Neurologic exam is alert and oriented, no focal loss of strength or sensation TRINI drain has increased drainage serosanguineous Results & Data Results & Data ([facility]) Vital Signs (Past 12 Hours) Vital Signs Temp Pulse Pulse Resp BP BP Pulse Ox 07/02/21 17:36 98.2 F 81 16 100/68 93 07/02/21 16:26 97.9 F 79 16 117/81 96 07/02/21 16:02 98.1 F 80 16 124/77 96 07/02/21 15:30 98.8 F 87 16 112/77 98 07/02/21 15:15 83 15 113/68 96 07/02/21 15:05 78 18 114/81 95 07/02/21 14:55 97.5 F L 86 17 120/73 100 07/02/21 14:45 81 14 118/71 100 07/02/21 14:35 85 18 116/81 100 07/02/21 14:25 80 15 106/73 99 07/02/21 14:15 97.3 F L 84 14 101/66 94 07/02/21 11:10 99.0 F 76 20 102/62 94 07/02/21 07:57 98.6 F 79 16 154/71 H 93 PG Care Time/CCT Total # of Minutes Spent Total Time Spent with Patient: Total time spent is greater than 50% in coordination of care (as documented) at patient's floor/unit and/or counseling patient: Coding Level of Care Code 46782 Subseq Hosp Care Lvl 2 Diagnoses Lumbar stenosis with neurogenic claudication M48.062 Atrial fibrillation, permanent I48.2 Lower urinary tract symptoms due to benign prostatic hyperplasia N40.1 Anemia D64.9 Mild CAD I25.10 Hypertension I10 Esophageal reflux K21.9 Dyslipidemia E78.5 Diabetes mellitus, controlled E11.9
[2021-07-02] MEDS: traMADol HCL 50 MG TABLET PO PRN (19:25)
[2021-07-02] MEDS: DOCUSATE SODIUM/SENNA 50/8.6MG TAB PO SCH (20:32)
[2021-07-02] MEDS: METOPROLOL TARTRATE 50 MG TAB PO SCH (20:33)
[2021-07-02] MEDS: ATORVASTATIN 40 MG TAB PO SCH (20:33)
[2021-07-02] MEDS: ALFUZOSIN HCL 10 MG TAB PO SCH (20:33)
[2021-07-02] MEDS: FAMOTIDINE 40 MG TABLET PO SCH (20:34)
[2021-07-03] MEDS: GABAPENTIN 300 MG CAP PO SCH ×3 (07:42→20:37)
[2021-07-03] MEDS: MAGNESIUM OXIDE 400 MG TAB PO SCH ×2 (07:42→20:37)
[2021-07-03] MEDS: FERROUS SULFATE 325 MG TAB PO SCH ×2 (07:42→20:36)
[2021-07-03] MEDS: CETIRIZINE HCL 10 MG TABLET PO SCH (07:42)
[2021-07-03] MEDS: PANTOprazole 40 MG TAB PO SCH (07:42)
[2021-07-03] MEDS: CHOLECALCIFEROL 1,000 UNITS 25 MCG TAB PO SCH (07:42)
[2021-07-03] MEDS: METOPROLOL TARTRATE 100 MG TAB PO SCH (07:42)
[2021-07-03] MEDS: MULTIVITAMIN TAB PO SCH (07:43)
[2021-07-03] MEDS: dexAMETHasone 8 MG in SYRINGE 0 ML IV SCH (07:46)
[2021-07-03] MEDS: oxyCODONE HCL IR 5 MG TAB (IMMEDIATE RELEASE) PO PRN ×3 (10:11→22:06)
--- NOTE | 2021-07-03 10:44 | Orthopedic Progress Note ---
Date of Service July 03, 2021 Assessment & Plan (1) Myelopathy concurrent with and due to spinal stenosis of thoracic region: Plan: At this time we will continue physical therapy monitor his TRINI. Hopefully rehab in the next few days. Admission and Anticipated Discharge Date Admission Date: June 24, 2021 Subjective Back pain controlled leg symptoms improving Physical Exam Physical Exam: Patient strength is intact. Appears comfortable. Results & Data ([facility]) Vital Signs (Past 12 Hours) Vital Signs Temp Pulse Resp BP BP Pulse Ox 07/03/21 07:50 36.7 C 70 18 107/67 93 07/03/21 02:16 36.5 C 68 16 109/70 96 07/02/21 22:58 36.9 C 86 16 109/72 96
--- NOTE | 2021-07-03 16:42 | Hospitalist Progress Note ---
Date of Service July 03, 2021 Assessment & Plan (1) Lumbar stenosis with neurogenic claudication: Plan: - Surgical management per primary team - Anticipate possible surgical intervention on Tuesday (2) Atrial fibrillation, permanent: Plan: - Remains rate controlled/asymptomatic; Follows with Dr. Zhu - Continue Metoprolol 100 mg AM and 50 mg PM - INR is currently 1.0 and has been off warfarin x 5 days --We will continue to urge starting anticoagulation as soon as safely possible but with bloody discharge in his TRINI drain from his back surgery thisy be held for an additional day or 2 until the drain is pulled, typically bridging is not required but restarting warfarin as soon as possible would be our best idea - CHADVASC is 2-3 so will need to get back on anticoagulation as soon as s urgically safe (3) Lower urinary tract symptoms due to benign prostatic hyperplasia: Plan: - Continue Alfuzosin 10 mg PM (4) Anemia: Plan: -Acute blood loss anemia status post 1 unit transfusion packed red blood cells - Continue iron supplementation; monitor for constipation (5) Mild CAD: Plan: - Catheterization approx. 1 year ago with only mild non-occlusive CAD; no angina - Does not appear to be on ASA; did have a gastric lap band in the past - Continue Atorvastatin (6) Hypertension: Plan: - Controlled - Continue Metoprolol - Hold Lasix pre-operatively (7) Esophageal reflux: Plan: - Continue Protonix as interchage and Famotidine (8) Dyslipidemia: Plan: - Continue Atorvastatin (9) Diabetes mellitus, controlled: Plan: - Last A1c 5.8 - not on medication - Admission and Anticipated Discharge Date Admission Date: June 24, 2021 Subjective this pt notices a great improvement to his leg paresthesias, no other complaints Review of Systems Review of Systems: Mild distress and fatigue no headache, no visual changes no speech or swallowing issues no chest pain, pressure or palpitations no shortness of breath, cough or wheezes no abdominal pain, nausea or vomiting, diarrhea or constipation no dysuria, hematuria or frequency no focal joint pain or swelling Focal lumbar back pain which is typical postoperatively with no radicular component Will has some bleeding in his TRINI drain no focal signs of weakness or numbness or altered sensation no complaints of anxiety or depression.. Physical Exam Physical Exam: The patient appeared well nourished and normally developed. Vital signs as documented. Head exam is normocephalic atraumatic Neck is without JVD, thyromegaly, or carotid bruits. Lungs are clear to auscultation, no focal loss of breath sounds Cardiac exam, irregular but rate controlled no murmurs, rubs or gallops. Abdominal exam reveals normal bowel sounds, soft non tender, no masses Extremities are nonedematous and both pedal pulses are present Neurologic exam is alert and oriented, no focal loss of strength still has some paresthesias to his feet Skin is without bruises or rashes except for operative site Psychologically is without concerns for anxiety or depression.. Results & Data Results & Data ([facility]) Vital Signs (Past 12 Hours) Vital Signs Temp Pulse Pulse Resp BP BP Pulse Ox 07/03/21 15:35 98.6 F 82 18 101/66 96 07/03/21 11:52 98.6 F 77 18 100/65 93 07/03/21 07:50 98.1 F 70 18 107/67 93 PG Care Time/CCT Total # of Minutes Spent Total Time Spent with Patient: Total time spent is greater than 50% in coordination of care (as documented) at patient's floor/unit and/or counseling patient: Coding Level of Care Code 24581 Subseq Hosp Care Lvl 1 Diagnoses Lumbar stenosis with neurogenic claudication M48.062 Atrial fibrillation, permanent I48.2 Lower urinary tract symptoms due to benign prostatic hyperplasia N40.1 Anemia D64.9 Mild CAD I25.10 Hypertension I10 Esophageal reflux K21.9 Dyslipidemia E78.5 Diabetes mellitus, controlled E11.9
[2021-07-03] MEDS: ATORVASTATIN 40 MG TAB PO SCH (20:35)
[2021-07-03] MEDS: FAMOTIDINE 40 MG TABLET PO SCH (20:36)
[2021-07-03] MEDS: DOCUSATE SODIUM/SENNA 50/8.6MG TAB PO SCH (20:36)
[2021-07-03] MEDS: METOPROLOL TARTRATE 50 MG TAB PO SCH (20:37)
[2021-07-03] MEDS: ALFUZOSIN HCL 10 MG TAB PO SCH (20:37)
[2021-07-04 06:00] LABS: Hematocrit (blood only) 26.5 % (42-52); Hemoglobin 8.4 g/dL (14.0-18.0); Mean Corpuscular Hemoglobin 29.3 pg (25-34); Mean Corpuscular Hgb Conc 31.7 g/dL (32-36); Mean Corpuscular Volume 92.3 fL (80-100); Mean Platelet Volume 9.4 fL (7.4-10.4); Platelet Count 233 K/uL (130-400); RDW Coefficient of Variation 14.1 % (11.5-14.5); RDW Standard Deviation 47.8 fL (36.4-46.3); Red Blood Count 2.87 M/uL (4.7-6.1); White Blood Count 13.52 K/uL (4.8-10.8)
[2021-07-04] MEDS: CETIRIZINE HCL 10 MG TABLET PO SCH (08:46)
[2021-07-04] MEDS: CHOLECALCIFEROL 1,000 UNITS 25 MCG TAB PO SCH (08:46)
[2021-07-04] MEDS: METOPROLOL TARTRATE 100 MG TAB PO SCH ×2 (08:47→20:56)
[2021-07-04] MEDS: FERROUS SULFATE 325 MG TAB PO SCH ×2 (08:47→20:57)
[2021-07-04] MEDS: GABAPENTIN 300 MG CAP PO SCH ×3 (08:47→20:56)
[2021-07-04] MEDS: dexAMETHasone 8 MG in SYRINGE 0 ML IV SCH (08:47)
[2021-07-04] MEDS: MULTIVITAMIN TAB PO SCH (08:47)
[2021-07-04] MEDS: PANTOprazole 40 MG TAB PO SCH (08:47)
[2021-07-04] MEDS: MAGNESIUM OXIDE 400 MG TAB PO SCH ×2 (08:47→20:56)
[2021-07-04] MEDS: oxyCODONE HCL IR 5 MG TAB (IMMEDIATE RELEASE) PO PRN ×3 (08:49→22:16)
--- NOTE | 2021-07-04 10:49 | Orthopedic Progress Note ---
Date of Service July 04, 2021 Assessment & Plan (1) Myelopathy concurrent with and due to spinal stenosis of thoracic region: Plan: This time we will continue physical therapy monitor his TRINI output anticipate discharge to rehab Tuesday Admission and Anticipated Discharge Date Admission Date: June 24, 2021 Subjective Back pain controlled leg symptoms improving Physical Exam Physical Exam: Patient is sitting up on the side of the bed. Discussed pain to testing. Peers comfortable. Results & Data ([facility]) Vital Signs (Past 12 Hours) Vital Signs Temp Pulse Resp BP Pulse Ox 07/04/21 07:29 36.6 C 87 20 112/73 97 07/03/21 23:04 36.6 C 87 18 102/74 95
[2021-07-04] MEDS: DOCUSATE SODIUM/SENNA 50/8.6MG TAB PO SCH (20:56)
[2021-07-04] MEDS: FAMOTIDINE 40 MG TABLET PO SCH (20:56)
[2021-07-04] MEDS: ALFUZOSIN HCL 10 MG TAB PO SCH (20:57)
[2021-07-04] MEDS: ATORVASTATIN 40 MG TAB PO SCH (20:57)
[2021-07-04] MEDS: METOPROLOL TARTRATE 50 MG TAB PO SCH (20:58)
--- NOTE | 2021-07-05 08:52 | Orthopedic Progress Note ---
Date of Service July 05, 2021 Assessment & Plan (1) Myelopathy concurrent with and due to spinal stenosis of thoracic region: Plan: Patient will continue with physical therapy. DVT prophylaxis is in the form of teds and SCDs. Continue with pain control. Anticipate discharge to rehab tomorrow. May resume anticoagulation today. We'll maintain TRINI drain. Admission and Anticipated Discharge Date Admission Date: June 24, 2021 Gavin Guerra is postoperative day 9 L2-S1 decompression and instrumented fusion and postoperative day 3 T11-T12 decompression and instrumented fusion. He is making progress. Numbness in bilateral lower extremities is improving significantly. Yesterday in physical therapy ambling roughly 80 feet. TRINI drain output last shift was roughly 30 cc. He has had a bowel movement this morning. Currently awaiting transfer to rehab as early as tomorrow. No other complaints. Review of Systems Review of Systems: All systems reviewed & are unremarkable except as noted in HPI & below Physical Exam Physical Exam: Patient sitting in bed in no acute distress Alert and oriented x3 Thoracic and lumbar dressing is clean dry and intact Functioning TRINI drain noted Calves are soft nontender bilateral lower extremities Strength unchanged bilateral lower extremity Results & Data ([facility]) Vital Signs (Past 12 Hours) Vital Signs Temp Pulse Resp BP Pulse Ox 07/05/21 07:44 36.5 C 77 18 117/72 94 07/04/21 22:14 36.7 C 78 18 122/78 95
[2021-07-05] MEDS: dexAMETHasone 8 MG in SYRINGE 0 ML IV SCH (08:53)
[2021-07-05] MEDS: GABAPENTIN 300 MG CAP PO SCH ×3 (08:53→20:26)
[2021-07-05] MEDS: PANTOprazole 40 MG TAB PO SCH (08:53)
[2021-07-05] MEDS: FERROUS SULFATE 325 MG TAB PO SCH ×2 (08:53→20:26)
[2021-07-05] MEDS: CETIRIZINE HCL 10 MG TABLET PO SCH (08:53)
[2021-07-05] MEDS: CHOLECALCIFEROL 1,000 UNITS 25 MCG TAB PO SCH (08:53)
[2021-07-05] MEDS: MULTIVITAMIN TAB PO SCH (08:53)
[2021-07-05] MEDS: MAGNESIUM OXIDE 400 MG TAB PO SCH ×2 (08:53→20:26)
[2021-07-05] MEDS: traMADol HCL 50 MG TABLET PO PRN (08:53)
[2021-07-05] MEDS: FAMOTIDINE 40 MG TABLET PO SCH (20:25)
[2021-07-05] MEDS: ALFUZOSIN HCL 10 MG TAB PO SCH (20:25)
[2021-07-05] MEDS: ATORVASTATIN 40 MG TAB PO SCH (20:26)
[2021-07-05] MEDS: METOPROLOL TARTRATE 50 MG TAB PO SCH (20:26)
[2021-07-05] MEDS: DOCUSATE SODIUM/SENNA 50/8.6MG TAB PO SCH (20:26)
[2021-07-05] MEDS: oxyCODONE HCL IR 5 MG TAB (IMMEDIATE RELEASE) PO PRN (23:08)
[2021-07-06] MEDS: traMADol HCL 50 MG TABLET PO PRN (06:05)
[2021-07-06 07:37] VITALS: BP 127/82; PULSE 79; TEMP 98.2; O2SAT 97
[2021-07-06] MEDS: PANTOprazole 40 MG TAB PO SCH (08:10)
[2021-07-06] MEDS: CHOLECALCIFEROL 1,000 UNITS 25 MCG TAB PO SCH (08:10)
[2021-07-06] MEDS: MULTIVITAMIN TAB PO SCH (08:10)
[2021-07-06] MEDS: CETIRIZINE HCL 10 MG TABLET PO SCH (08:10)
[2021-07-06] MEDS: FERROUS SULFATE 325 MG TAB PO SCH (08:10)
[2021-07-06] MEDS: MAGNESIUM OXIDE 400 MG TAB PO SCH (08:11)
[2021-07-06] MEDS: METOPROLOL TARTRATE 100 MG TAB PO SCH (08:11)
[2021-07-06] MEDS: GABAPENTIN 300 MG CAP PO SCH ×2 (08:11→12:57)
[2021-07-06] MEDS: dexAMETHasone 8 MG in SYRINGE 0 ML IV SCH (08:12)
--- NOTE | 2021-07-06 11:19 | Discharge Summary ---
Date of Service July 06, 2021 Admission HPI Per Admitting Provider Is a very pleasant 65-year-old gentleman who presents to the emergency room for evaluation. He is a known patient to us. He is actually scheduled for prior thoracolumbar decompression instrumented fusion today by Dr. Toure. Unfortunately this was canceled due to the pandemic, bed availability. He has had ongoing symptoms for several months. Initially he states in the summertime he was noting many falls. He was ambulating with a cane at that point. His Symptoms progressively worsened. Now he is ambulating with a walker all the time. Patient's is with him today and reports he is actually not very a mbulatory because of above-mentioned complaints. He has bilateral lower extremity numbness, pain, weakness. He is progressively worsening over the past few weeks. Balance is also progressively worsening also. He now notes new urinary incontinence over the past 2 weeks. Denies perineum numbness. Denies bowel changes plate. He is trialed physical therapy in the past without improvement. Within the past month he has seen both Dr. Zhu for his cardiac issues as well as Dr. Reed his PCP preoperatively. Principal Diagnosis Lumbar spinal stenosis with thoracic spinal stenosis and myelopathy Discharge Data Allergies Allergy/AdvReac Type Severity Reaction Status Date / Time hydrochlorothiazide Allergy Mild Hypotension Verified 07/02/21 11:10 [From Aldoril D30] methyldopa [From Aldoril D30] Allergy Mild Hypotension Verified 07/02/21 11:10 Consultations 06/24/21 14:54 ED Decision to Admit Stat 06/24/21 16:15 Consult Internal Medicine Routine Procedures Performed Operation Date: 06/26/21 10:05 Actual Procedures p L2-S1 Thoracic Lumbar Decompression and Fusion, Spinal Cord Monitoring, Application of Bone Morphogenetic Protein and I-Factor. (Not Applicable) - Candido Toure DO Operation Date: 07/02/21 11:25 Actual Procedures p T10-T11 Decompression Fusion(Not Applicable) - Candido Toure DO Ordered Studies 06/26/21 [place] lumbar spine 2-3V Routine 07/02/21 11:25 [place] thoracic spine 2V Routine Hospital Course (1) Myelopathy concurrent with and due to spinal stenosis of thoracic region: Patient underwent multiple lumbar decompression fusion trial as well as medically orthopedic for possibly. Postop day 1 he was progressing appropriately. He did so for the next 4days and subsequently demonstrated continued evidence of myelopathy had been recovering appropriately from his lengthy lumbar surgery we elected to address his thoracic stenosis during this hospital stay. Subsequently underwent a thoracic decompression and fusion tolerated this well also. He was up and ambulate next day stay with us throughout the weekend progressing appropriately with physical therapy TRINI drain decreasing appropriately. Subsequent discharge to rehab. Discharge orders instructions can be found in chart for further review. Total Time Total Time Spent Total Time Spent (In Minutes): 20 minutes Discharge Plan Discharge Items Patient Disposition: Transfer Inpatient Rehab Fac Reason For Visit: LEG WEAKNESS Discharge Diagnosis: Lumbar spinal stenosis with neurogenic claudication Activity: As commented below Non-emergency contact: Primary Care Provider Call non-emergency contact if: you have any medication questions Follow-up/Referrals: Geoff Huber MD [Primary Care Provider] - Diet: Regular Addtl Attending Provider Instructions: ACTIVITY RECOMMENDATIONS: SELF CARE INSTRUCTIONS AFTER THORACIC/LUMBAR FUSIONS 1. You may walk to your tolerance. It is good exercise for your legs and back. Expect some back and intermittent leg aches and pains. 2. You may perform "counter-top" level activities (make a sandwich, donnie with a project, etc.). 3. No bending or lifting of more than 10 pounds or back twisting of any nature (roll like a log when turning in bed). 4. You may ride in a car for 20-30 minutes at a time. No driving until after your first visit with your doctor. 5. Frequent changes of position and restricting sitting to 30 minutes at a time will help limit the amount of back spasms and stiffness you may experience. 6. You may discontinue the use of ambulatory aids (cane, crutches, etc.) once your strength and confidence allow. 7. You may medical appointment clerk the shower and let water strike your incision when you arrive home at least once daily. Do not take a tub bath, sit in a hot tub or go into a swimming pool until after your first recheck in the office. SPECIAL CARE INSTRUCTIONS: VERY IMPORTANT TO READ AND REVIEW A. Your surgical incision has been closed with a cosmetic suture under the skin that will dissolve in about 6 weeks. In 14 days, you can use a pair of clean scissors and cut the suture that is left outside of the skin at the ends of your incision. 1. The small skin tapes can be removed 7 days after surgery if they have not fallen off by that point. 2. You may keep the wound open to air as much as possible to promote healing after post-op day number 5 unless told otherwise by your doctor. 3. If you think the wound looks like it is becoming infected (redness or worsening drainage) and/or you are experiencing fever, chill or worsening back pain and muscle spasms, contact the office so that we may evaluate you as soon as possible. B. Complications are uncommon, but please contact us if you have any signs or symptoms of: 1. wound infection (fever higher than 102.5 degrees F, redness, separation of wound, drainage, or increasing pain from the incision) 2. blood clots in legs (pain, swelling, redness and warmth in legs) 3. urinary tract infection (fever higher than 102.5 degrees F, burning upon urination or increased frequency of urination) 4. nerve problems (inability to walk on your toes or heels, numbness, loss of bowel or bladder control) 5. any other symptoms that concern you C. Please call the office at if you have any concerns or questions about your operation or recovery. D. No smoking! Smoking drastically decreases the chance of a solid fusion. E. Do not take any anti-inflammatory medications (Indocin, Advil, Motrin, Aspirin, Naprosyn, etc.) as these may inhibit the chance of a solid fusion. Tylenol is okay to take for pain. MANAGING PAIN AFTER SPINAL SURGERY 1. Narcotic medication is intended for short-term use and will be provided for surgical pain. Surgical pain usually lasts for a period of 4-6 weeks. Narcotic medication includes Percocet, Vicodin, Darvocet, Tylenol #3 or Lortab. 2. Longer-term pain is more appropriately treated with non-narcotic medication such as Tylenol ES. 3. Muscle spasm is not appropriately treated with narcotics. Muscle relaxers such as Soma, Flexeril or Skelaxin can be used along with Tylenol ES. 4. Remember that we all live with some "aches and pains". This is not unusual or uncommon after an injury or as we get older. a. Back pain is expected and may include muscle spasms for 4 to 6 weeks after surgery. The pain should gradually improve. If the pain worsens for no apparent reason, please contact the office. b. Intermittent leg pain may also be experienced and should not be concerned about unless it worsens for no apparent reason. If so, please contact the office. 5. We will provide appropriate medication within the normal guidelines of their prescribed use. We will also be very cautious and aware of potential abuse and extended duration of patients' medication needs. a. Pain medications are for your comfort and to assist with sleep and rest so that the tissue can heal. They are not provided in order to return to normal activity and should not be used through the day. To do so or worsening pain at night can result from ongoing tissue damage and development of tolerance to the prescribed medicine. 6. Please allow 2-3 days to process refills. Prescriptions will not be mailed but must be picked up at the office. FOLLOW UP VISIT: Keep your scheduled follow-up appointment. Any questions, please call the office at . Pending Studies at Discharge: No Stand-Alone Forms: My [place], Smoking Cessation Skilled Items Patient informed of condition?: Yes DNR: No Discharge Level of Care: Acute rehab Communicable Disease: No Discharge Prognosis: Improving Lines: None Urinary Catheter: No Medications and DC Order Prescriptions: New tramadol 50 mg tablet 50 mg PO Q6H PRN (Reason: pain, moderate) Qty: 30 RF: 0 oxycodone 5 mg tablet 5 mg PO Q6H PRN (Reason: pain, severe) Qty: 30 RF: 0 Continued warfarin 10 mg tablet 10 mg PO .COMPLEX Qty: 24 RF: 3 tadalafil 10 mg tablet 18.5 mg PO DAILY PRN (Reason: sexual activity) Qty: 90 RF: 3 atorvastatin 40 mg tablet 40 mg PO HS Qty: 90 RF: 3 lansoprazole 30 mg capsule,delayed release(DR/EC) 30 mg PO QAM Qty: 90 RF: 3 gabapentin 300 mg capsule 300 mg PO TID Qty: 270 RF: 3 famotidine 40 mg tablet 40 mg PO QPM Qty: 90 RF: 3 warfarin 7.5 mg tablet 7.5 mg PO .COMPLEX Qty: 65 RF: 3 furosemide [Lasix] 20 mg tablet 20 mg PO QAM Qty: 60 RF: 5 metoprolol tartrate 100 mg tablet See Rx Instructions PO .COMPLEX RF: 0 magnesium oxide 400 mg (241.3 mg magnesium) tablet 400 mg PO BID Qty: 180 RF: 3 multivitamin [Multiple Vitamins] tablet 1 tab PO QAM RF: 0 cetirizine 10 mg tablet 10 mg PO QAM RF: 0 cholecalciferol (vitamin D3) 1,000 unit (25 mcg) tablet 1,000 units PO QAM RF: 0 docusate sodium [Stool Softener] 100 mg Capsule 100 mg PO BID RF: 0 ferrous sulfate 325 mg (65 mg iron) Tablet,Delayed Release (Dr/Ec) 325 mg PO BID Qty: 60 RF: 0 diclofenac sodium [Voltaren] 1 % Gel 4 g EXT QID PRN (Reason: left foot pain) Qty: 1 RF: 0 celecoxib [Celebrex] 100 mg capsule 100 mg PO QAM RF: 0 alfuzosin 10 mg tablet extended release 24 hr 10 mg PO QPM RF: 0 Discharge Orders: Discharge Order (Routine); Ordered 07/06/21 Ordered By: Candido Toure Admission Data Admit Date/Time: 06/24/21 15:00 Attending Provider: Candido Toure Admit Provider: Candido Toure Primary Care Provider: Geoff Huber Other Providers: [facility] ; Candido Toure ; Louis Farris
== END 2021-07-06 14:45 | DRG 454 ==
LOC: ED 07:27 → 3E 15:00 → SUPCPDRO 15:00 → 3E 16:20